=== PATIENT | male | born 1980 | race Caucasian/White ===

== ENCOUNTER 2018-07-28 20:52 | Inpatient (IN) | payer MEDICAID, SELFPAY ==
[2018-07-28 20:53] VITALS: BP 138/83; PULSE 121; RESP 24; TEMP 36.8; O2SAT 99; BMI 27.1
--- NOTE | 2018-07-28 21:05 | EKG12_ITS ---
Test Reason : CP Blood Pressure : / mmHG Vent. Rate : 109 BPM Atrial Rate : 109 BPM P-R Int : 158 ms QRS Dur : 092 ms QT Int : 322 ms P-R-T Axes : 060 033 036 degrees QTc Int : 433 ms Sinus tachycardia Otherwise normal ECG Confirmed by IKER OGDEN, SILVER ([id number]), image editor VERENA CONTRERAS ([id number]) on 07/30/2018 2:40:52 PM Referred By: ARLINE/JOSE Confirmed By:SILVER DONG MD
--- NOTE | 2018-07-28 21:05 | RAD_ITS ---
STUDY: X-RAY CHEST REASON FOR EXAM: Male, 38 years old. Chest pain/pressure TECHNIQUE: Single AP portable view of the chest. COMPARISON: 09/07/2013 FINDINGS: The lungs are clear and expanded. There is no demonstrated pleural abnormality. Normal size heart. Normal mediastinum and nicholas. Normal visualized pulmonary arteries. Normal visualized aortic arch and descending thoracic aorta. Normal visualized thoracic spine. Normal visualized ribs, clavicles, and shoulders. There is no demonstrated abnormality of the visualized soft tissue structures of the upper abdomen. RAD/Chest 1 View (Portable) IMPRESSION: Normal x-ray examination of the chest. Electronically Signed: Olegario Jimenez MD at 21:32 EDT , Service support ,
[2018-07-28] MEDS: 0.9% Normal Saline 1,000 ML 150 ML IV (21:16)
[2018-07-28] MEDS: Ondansetron 4 MG/2 ML Vial IV (21:17)
[2018-07-28] MEDS: Aspirin 81 MG TAB.CHEW 324 MG PO (21:17)
[2018-07-28] MEDS: HYDROmorphone 1 MG/ML Syringe IV (21:18)
[2018-07-28 21:22] VITALS: PULSE 107; RESP 20; O2SAT 98
[2018-07-28 21:24] LABS: Absolute Lymphocyte Count 3.83 X10^3/ul (0.83-4.51); Basophil# 0.05 X10^3/uL; Basophil% 0.6 % (0-1); Eosinophil# 0.08 X10^3/uL; Eosinophils% 0.9 % (0-5); Hematocrit 43.2 % (40-54); Hemoglobin 14.7 g/dl (13.0-16.5); Lymphocyte # 3.83 X10^3/ul (4.0); Mean Corpuscular Hgb 29.6 pg (27.0-32.0); Mean Corpuscular Volume 87.1 fL (80-94); Mean Platelet Vol. 9.9 fl (6.2-12.0); Monocyte# 0.91 X10^3/uL; Monocyte% 10.2 % (0-10); Neutrophil # 4.01 X10^3/uL (2.7-7.7); Neutrophil % 45.1 % (47-70); Platelet Count 218 K/mm3 (150-450); RBC Distribution Width SD 41.4 fl (35.1-43.9); Red Blood Count 4.96 M/mm3 (4.6-6.2); White Blood Count 8.9 K/mm3 (4.4-11.0)
[2018-07-28 21:25] LABS: POSITIVE COUNT NO; POSITIVE DIFFERENTIAL NO; POSITIVE MORPHOLOGY NO
[2018-07-28 21:26] LABS: D-Dimer Quantitative (DVT/PE) 1.02 FEU/ug/m (0.27-0.49)
--- NOTE | 2018-07-28 21:27 | ED.RN ---
DR NUNN AWARE OF D-DIMER 1.02.
--- NOTE | 2018-07-28 21:29 | CT_ITS ---
STUDY: CTA CHEST REASON FOR EXAM: Male, 38 years old. Left-sided chest pain radiating to the neck. Elevated d-dimer. RADIATION DOSAGE (If Supplied By Facility): CTDIvol = ( 16.8 ) mGy, DLP = ( 533.66 ) mGycm TECHNIQUE: The examination was performed with the intravenous administration of 100ML ml of Isovue 370 contrast material. Post-processing of the angiographic images was performed, with multiplanar reformation and 3D reconstruction. Individualized dose optimization techniques were used for this CT. COMPARISON: None. FINDINGS: The heart and pericardium are normal. The aorta is normal in caliber, with no aneurysm or dissection. There is no evidence of pulmonary embolus. Pulmonary arteries are unremarkable. There is mild mediastinal adenopathy and moderate bilateral hilar adenopathy. No calcified lymph nodes. There is no pleural effusion. Multiple bilateral pulmonary nodules measure up to 1.8 cm. No cavitation. These are concerning for possible malignancy/metastatic disease. Differential considerations include lymphoma; infection, including mycobacteria or fungal etiologies; septic emboli; hypersensitivity pneumonitis, Josep's disease; sarcoidosis. There is mild atelectasis in the lung bases. No interstitial disease is noted. Visualized abdomen is unremarkable. There is no osseous abnormality. CT/CTA Chest W/WO Contrast IMPRESSION: 1. Multiple bilateral pulmonary nodules with mediastinal and hilar adenopathy. Differential considerations are noted above. 2. No evidence of pulmonary embolus or aortic dissection. Dr. Mosher called findings to Dr. Ford at 10:33 PM. N.B. : The above information has been verbally conveyed by Marlin Mosher MD to Jessica Ford MD, on 07/28/2018 22:34:46 (ET). Electronically Signed: Marlin Mosher MD at 22:34 EDT Tel , Service support ,
[2018-07-28 21:34] LABS: Anion Gap 6 (5-15); BUN 9 mg/dL (7-18); BUN/Creat Ratio 9.9 RATIO (10-20); Calcium,Total 8.9 mg/dL (8.5-10.1); Chloride 104 mmol/L (98-107); Creatinine, Serum 0.91 mg/dL (0.70-1.30); EST Glomerular Filtration Rate 98 mL/min (>60); Est Glom Filt Rate - Afr Amer 119 mL/min (>60); Estimated Creatinine Clearance 131.55 ml/min; Glucose 97 mg/dL (74-106); Potassium 3.5 mmol/L (3.5-5.1); Sodium Level 140 mmol/L (136-145)
--- NOTE | 2018-07-28 23:01 | PCM.HP.STD ---
History of Present Illness Date of Admission: 07/28/18 Chief Complaint: Left-sided chest pain. The patient is a 38 y/o M w/ PMHx: Depression, Tobacco use, ? History of Treatment TB as Youth who presents to the [facility] ED on 07/28/18 with history of left sided pleuritic chest pain starting the day prior, mild initially, now ~ 20 minutes prior to presentation worsened, severe, worse with movement and with deep inspiration w/ radiation to the neck w/ ongoing chronic mild sputum productive unchanged from baseline, 30-40 lb weight loss over the last 6-12 months, night sweats over the last several days without any ongoing fever or chills. He per his mother was diagnosed w/ TB at age 6 including several family members following + family member and he was treated w/ 1 year of therapy. She notes following this he had no apparent issues but did not follow-up with any pulmonary or ID physician. In the ED work-up included T 98.3, heart rate 121-->107, BP 138/83, respiratory rate 24, 99% on room air, CBC with WBC 8.9, hemoglobin 14.7, platelet 218 without market left shift, d-dimer 1.02, BMP unremarkable, troponin less than 0.015, chest x-ray without acute process, CTPA with multiple bilateral pulmonary nodules with mediastinal and hilar adenopathy with no acute evidence of pulmonary embolus or aortic dissection, EKG with sinus tachycardia without acute evidence of ischemia. In the ED patient administered Zofran, Dilaudid, aspirin, normal saline. Past Medical History Allergies No Known Allergies Allergy (Verified 07/28/18 20:53) Home Medications: Ambulatory Orders Medication Instructions Recorded NK 07/28/18 Surgical History: - - Jaw surgery secondary to trauma, right upper extremity surgery, tonsillectomy. Psychiatric History: Depression Lives: Spouse/ Significant Other, With Family Smoking Status: Current every day smoker Tobacco Use: Cigarettes - Patient smokes proximally 1.5-2 pack/day cigarette tobacco usage. Alcohol: None Drugs: None - *Family History Maternal History Items: Diabetes, Hypertension Paternal History Items: Diabetes, Hypertension Review of Systems Constitutional: Reports: Night Sweats, Malaise, Weakness, Weight Change, Fatigue. Denies: Chills, Fever HEENT: Denies: Head Aches, Sinus Congestion, Sinus Drainage Cardiovascular: Reports: Chest Pain. Denies: Palpitations Respiratory: Reports: Cough, Pleuritic Pain, Sputum production. Denies: Shortness of Breath, Shortness of breath at rest, Shortness of breath upon exertion Gastrointestinal: Denies: Abdominal Pain, Nausea, Vomiting Genitourinary: Denies: Dysuria Musculoskeletal: Denies: Joint Pain, Joint Tenderness Skin: Denies: Rash, Wounds Neurological: Denies: Numbness, Tingling, Focal weakness Psychiatric: Reports: Depression. Denies: Anxiety, Homicidal Ideations, Suicidal Ideations Hematologic/ Lymphatic: Denies: Easy Bruising, Easy Bleeding VTE Information - Inpt Only VTE Present on Admission: No VTE Mechan Device Prophylaxis: SCD's VTE Pharm Prophylaxis ordered?: Yes Subjective: Seated upright in the ED bed, fatigued appearance, currently no acute left sided chest pain. Objective: Physical Examination: General: awake, alert, oriented x 3 and cooperative, seated upright in the ED bed in no apparent distress currently, chest pain currently improved after ED pain regimen. Skin: normal color, turgor, no icterus, cyanosis. HEENT: AT/NC, EOMI, PERRLA, mildly dry MM, no carotid bruits or JVD noted. Lungs: Diminished BS throughout, > BL bases, poor effort, hesitant to take deep breath secondary to L sided pleuritic chest pain, no reproducible discomfort w/ palpation L chest, no rales, ronchi or wheezing. Heart: Regular rate and rhythm; no gallop, rub audible. Abdomen: soft, NTTP, ND, normal BS, no HSM. Extremities: no cyanosis, clubbing, or edema. Neurological: patient awake, alert, oriented x 3; cognitive function intact; pupils equally reactive to light and accomodation; cranial nerves II-XII grossly normal, moving all 4 extremities, no focal deficits, strength moderately globally decreased secondary to acute presentation. Psychiatric: affect appears fatigued, anxious, no acute evidence of depressive feelings. - Physical Exam Vital Signs Temp Pulse Resp BP Pulse Ox 98.3 F 107 H 20 H 138/83 H 98 07/28/18 20:53 07/28/18 21:22 07/28/18 21:22 07/28/18 20:53 07/28/18 21:22 Oxygen Delivery Method Room Air Weight: 216 lb 11.43 oz Body Mass Index (BMI) 27.1 Laboratory Tests Past 24 Hrs 07/28/18 07/28/18 07/28/18 21:00 21:00 21:00 WBC 8.9 RBC 4.96 Hgb 14.7 Hct 43.2 MCV 87.1 MCH 29.6 MCHC 34.0 RDW 13.0 RDW Differential 41.4 Plt Count 218 MPV 9.9 Immature Gran % (Auto) 0.200 Neut % (Auto) 45.1 L Lymph % (Auto) 43.0 H Coll[place]worth % (Auto) 10.2 H Eos % (Auto) 0.9 Baso % (Auto) 0.6 Absolute Neuts (auto) 4.0 Absolute Lymphs (auto) 3.83 Total Counted Not Reportable D-Dimer Quant (PE/DVT) 1.02 H* Sodium 140 Potassium 3.5 Chloride 104 Carbon Dioxide 30.0 Anion Gap 6 BUN 9 Creatinine 0.91 Estim Creat Clear Calc 131.55 Est GFR (MDRD) Af Amer 119 Est GFR (MDRD) Non-Af 98 BUN/Creatinine Ratio 9.9 L Glucose 97 Calcium 8.9 Troponin I < 0.015 Assessment/Plan The patient is a 38 y/o M w/ PMHx: Depression, Tobacco use, ? History of Treatment TB as Youth who presents to the [facility] ED on 07/28/18 with history of left sided pleuritic chest pain starting the day prior, mild initially, now ~ 20 minutes prior to presentation worsened, severe, worse with movement and with deep inspiration w/ radiation to the neck w/ ongoing chronic mild sputum productive unchanged from baseline, 30-40 lb weight loss over the last 6-12 months, night sweats over the last several days without any ongoing fever or chills. (1) Pleuritic Chest Pain w/ Mediastinal adenopathy and moderate bilateral hilar adenopathy, Unclear Etiology, High Suspicion for TB given Prior History of TB: ED work-up included T 98.3, heart rate 121-->107, BP 138/83, respiratory rate 24, 99% on room air, CBC with WBC 8.9, hemoglobin 14.7, platelet 218 without market left shift, d-dimer 1.02, BMP unremarkable, troponin less than 0.015, chest x-ray without acute process, CTPA with multiple bilateral pulmonary nodules with mediastinal and hilar adenopathy with no acute evidence of pulmonary embolus or aortic dissection, EKG with sinus tachycardia without acute evidence of ischemia. Will admit to [facility], place on a monitored bed, maintain in isolation w/ ICU, will obtain sputum Cx x 3 including early AM sample for additionally AFB sputum smear, [place] evaluation and mycobacterial culture, place PPD, obtain quantiferon gold testing, obtain HIV testing, consult Pulmonary and ID, place on aerosols, PRN pain regimen, PRN antiemetic regimen. Given history of weight loss, night sweats and pulmonary findings, if noted work-up not remarkable may need to further pursue bronchoscopy/bx. (2) Tobacco Abuse: Encouraged cessation, inpatient consultation per RT, NR if desired. (3) Depression: Not on regimen, given current presentation and ramifications if + TB with very large family (6 children at home) will need to closely follow. (4) DVT Prophylaxis: SCDs, lovenox. Code Visit Inpatient E&M: 41076 Init Hosp L3
--- NOTE | 2018-07-28 23:25 | ED.VISSUMM ---
- ER Visit Summary Date of Service: 07/28/18 Chief Complaint: [Pain] History of Present Illness: The patient is a 38 M [presents to the emergency department with complaint of chest pain that started about 20 minutes ago. Patient states initially had some mild discomfort yesterday but then it seemed to resolve. 20 minutes ago he developed more severe discomfort radiating to his neck and left shoulder that is worse with deep breath and movement. Patient states the pain is sharp and stabbing and will take his breath away when he breathes. Patient denies any trauma. Patient is a smoker. He denies recent travel or surgery. He denies any hemoptysis. He has not been in intermediate or [facility]. Patient's mother states that he was treated for TB as a young child.] Patient states that he has a smoker's cough and typically coughs up some brownish phlegm in the morning. Physical Examination: [HEENT-PERRLA, EOMI. Cranial nerves II through XII grossly intact. TMs clear. Mucous membranes moist. No adenopathy. Cardiovascular-regular rate and rhythm without murmur or ectopy Lungs-clear to auscultation, chest wall stable without crepitus or subcu emphysema. Patient does have some tenderness palpation over the left anterior chest wall that seems to reproduce his pain. Abdomen-normoactive bowel sounds, soft, nontender, no rebound or rigidity, no peritoneal signs. Extremities-intact ?4, normal range of motion, normal pulses, atraumatic] Test Results: [EKG obtained on arrival showed a sinus rhythm with ventricular rate of 109 bpm with no acute ST segment changes. CBC with differential showed a white count of 8.9, hemoglobin 14.7, hematocrit 43, platelets 218. Chemistries were normal. Troponin was less than 0.015. D-dimer was 1.02. Chest x-ray was normal. CTA of the chest obtained was negative for PE or dissection however patient had multiple bilateral pulmonary nodules measuring up to 1.8 cm no cavitation noted these are concerning for possible malignancy/metastatic disease. Differential considerations include lymphoma, infection, including Mycobacterium or fungal etiologies. Septic emboli, hypersensitivity pneumonitis, Josep's disease, or sarcoidosis.] Emergency Department Course and Treatment: [Patient was medicated with Dilaudid and Zofran.] Treatment Plan: [Admit] Disposition: [Admit] Impression: [Chest pain-etiology uncertain Pulmonary nodules and adenopathy-etiology uncertain] This note was generated with Zoce[employer] dictation software. It may contain incorrect words, spelling, and punctuation that were not noted in review of the chart prior to signing ED Disposition - Plan for ED Patient: Chief Complaint: Chest Pain Referrals: Care Physician,No Primary [Primary Care Provider] -
--- NOTE | 2018-07-28 23:28 | ED.DCSUM_ITS ---
- ER Visit Summary Date of Service: 07/28/18 Chief Complaint: [Pain] History of Present Illness: The patient is a 38 M [presents to the emergency department with complaint of chest pain that started about 20 minutes ago. Patient states initially had some mild discomfort yesterday but then it seemed to resolve. 20 minutes ago he developed more severe discomfort radiating to his neck and left shoulder that is worse with deep breath and movement. Patient states the pain is sharp and stabbing and will take his breath away when he breathes. Patient denies any trauma. Patient is a smoker. He denies recent travel or surgery. He denies any hemoptysis. He has not been in residential or long term. Patient's mother states that he was treated for TB as a young child.] Patient states that he has a smoker's cough and typically coughs up some brownish phlegm in the morning. Physical Examination: [HEENT-PERRLA, EOMI. Cranial nerves II through XII grossly intact. TMs clear. Mucous membranes moist. No adenopathy. Cardiovascular-regular rate and rhythm without murmur or ectopy Lungs-clear to auscultation, chest wall stable without crepitus or subcu emphysema. Patient does have some tenderness palpation over the left anterior chest wall that seems to reproduce his pain. Abdomen-normoactive bowel sounds, soft, nontender, no rebound or rigidity, no peritoneal signs. Extremities-intact ?4, normal range of motion, normal pulses, atraumatic] Test Results: [EKG obtained on arrival showed a sinus rhythm with ventricular rate of 109 bpm with no acute ST segment changes. CBC with differential showed a white count of 8.9, hemoglobin 14.7, hematocrit 43, platelets 218. Chemistries were normal. Troponin was less than 0.015. D-dimer was 1.02. Chest x-ray was normal. CTA of the chest obtained was negative for PE or dissection however patient had multiple bilateral pulmonary nodules measuring up to 1.8 cm no cavitation noted these are concerning for possible malignancy/metastatic disease. Differential considerations include lymphoma, infection, including Mycobacterium or fungal etiologies. Septic emboli, hypersensitivity pneumonitis, Josep's disease, or sarcoidosis.] Emergency Department Course and Treatment: [Patient was medicated with Dilaudid and Zofran.] Treatment Plan: [Admit] Disposition: [Admit] Impression: [Chest pain-etiology uncertain Pulmonary nodules and adenopathy-etiology uncertain] This note was generated with HomeTouch dictation software. It may contain incorrect words, spelling, and punctuation that were not noted in review of the chart prior to signing ED Disposition - Plan for ED Patient: Chief Complaint: Chest Pain Referrals: Care Physician,No Primary [Primary Care Provider] -
[2018-07-29] VITALS (16 sets, daily range): BP systolic 116–132; BP diastolic 62–85; PULSE 72–114; RESP 16–23; TEMP 36.7–36.9; O2SAT 94–98; BMI 23.5
--- NOTE | 2018-07-29 | SPU_PTH ---
PATIENT: GUERRERO BAI LOC: ICU U#:[id number] AGE/SX: 38/M ROOM: [place] [address] RE07/28/[address]: Dr. Eliud Larios MD : 1980 BED: 1 DIS: 07/30/2018 SPEC #: [id number] RECD: 07/29/18 11:08 STATUS: ZAKI REAkash #: [id number] SABRINA: 07/29/18 00:[address]: Eliud Larios DEPT: CYTOLOGY RECD BY: Elkin Figueredo ENTERED: 07/29/18 11:10 SP TYPE: Sputum Cy OTHR DR: MD Dr. Scott Moreno MD Dr. Robert Leininger, MD No Primary Care Phys Tissues: Sputum Procedures: Pap Stain (control) Special Stain Group II Special Stain Group I AFB Stain (control) Cytospin Fluid HEADER OPERATION: Not noted PRE-OP DIAGNOSIS: Chest pain, abnormal CT TISSUE SUBMITTED: Sputum #2 for cytology DIAGNOSIS CYTOLOGY Sputum #2 for cytology (cytospin): Negative for malignant cells. Special stain for acid fast bacilli is negative for organisms; matched control is appropriate. SJ:rg 07/30/18 COMMENT This case is discussed with Dr. Rafa Herrera on 07/30/18. CYTOLOGY STUDY Slides are reviewed. The specimen consists of squamous cells, histiocytes and numerous neutrophils. CYTOLOGY GROSS Received is <1 ml of thick, cloudy mucoid fluid labeled with the patient's name and and designated per the requisition as sputum. Submitted for cytology preparation. / 07/29/18 TC:2 CPT: 63744, 38968
[2018-07-29 00:43] LABS: Vista UDS pH Range 6
[2018-07-29 00:56] LABS: Amphetamine Urine VISTA NEGATIVE (<1000 ng/mL); Barbiturate Urine VISTA NEGATIVE (< 200 ng/mL); Benzodiazepine Urine VISTA NEGATIVE (< 200 ng/mL); Cocaine Urine VISTA NEGATIVE (< 300 ng/mL); Ecstacy Urine VISTA NEGATIVE (< 500 ng/mL); Methadone Urine VISTA NEGATIVE (< 300 ng/mL); PCP Urine VISTA NEGATIVE (< 25 ng/mL); THC Urine VISTA POSITIVE (< 50 ng/mL)
[2018-07-29 01:15] LABS: Magnesium 2.1 mg/dL (1.6-2.6)
[2018-07-29] MEDS: Ipratropium/Albuterol Sulfate 3 ML AMPUL.NEB INHALATION ×5 (01:18→18:41)
[2018-07-29] MEDS: 0.9% Normal Saline 1,000 ML 125 ML IV ×2 (01:23→09:29)
[2018-07-29] MEDS: 0.9% NaCl Peripheral Flush Adult/Peds IV ×2 (01:24→19:25)
[2018-07-29] MEDS: Temazepam 15 MG Capsule PO (01:24)
[2018-07-29] MEDS: Ondansetron 4 MG/2 ML Vial IV ×2 (01:24→13:12)
[2018-07-29] MEDS: Morphine 2 MG/ML Syringe IV ×3 (01:24→19:24)
--- NOTE | 2018-07-29 01:30 | SPU_PTH ---
PATIENT: GUERRERO BAI LOC: ICU U#:[id number] AGE/SX: 38/M ROOM: [place] [address] RE07/28/[address]: Dr. Eliud Larios MD : 1980 BED: 1 DIS: 07/30/2018 SPEC #: [id number] RECD: 07/29/18 08:23 STATUS: ZAKI REQ #: [id number] SABRINA: 07/29/18 01:[address]: Eliud Larios DEPT: CYTOLOGY RECD BY: Elkin Figueredo ENTERED: 07/29/18 08:24 SP TYPE: Sputum Cy OTHR DR: MD Dr. Scott Moreno MD Dr. Robert Leininger, MD No Primary Care Phys Tissues: Sputum Procedures: Pap Stain (control) Special Stain Group II Special Stain Group I AFB Stain (control) Cytospin Fluid HEADER OPERATION: Not noted PRE-OP DIAGNOSIS: Chest pain, abnormal CT TISSUE SUBMITTED: Sputum #1 for cytology at 0130 DIAGNOSIS CYTOLOGY Sputum #1 for cytology (cytospin and smears): Negative for malignant cells. A few fungal organisms (yeast) consistent with waylon species are noted. Special stain for acid fast bacilli is negative for organisms; matched control is appropriate. SJ:rg 07/30/18 COMMENT This case is discussed with Dr. Rafa Herrera on 07/30/18. CYTOLOGY STUDY Slides are reviewed. The specimen consists of squamous cells, squamous metaplastic cells, inflammatory cells, organism consistent with bacteria and a few histiocytes. CYTOLOGY GROSS Received is >1 ml of thick, cloudy mucoid fluid labeled with the patient's name and and designated per the requisition as sputum. Submitted for cytology preparation. / 07/29/18 TC:2 CPT: 69363, 20793
[2018-07-29 01:53] LABS: Acid Fast Stain SEE PATHOLOGY REPORT; Cytology, Body Fluid / CSF SEE PATHOLOGY REPORT
[2018-07-29] MEDS: Tuberculin,Purif.prot.deriv. 50 TU/ML Vial 5 ML ID (02:15)
[2018-07-29 05:09] LABS: M R Staph aureus DNA By PCR Negative (Negative); Probe Check PASS; Specimen Processing Control PASS
[2018-07-29] MEDS: HYDROcodone Bitartrate/Apap 5/325 Tablet PO (07:52)
--- NOTE | 2018-07-29 09:01 | PCM.PN.HOSP ---
Subjective: The patient was admitted last night for suspicion of TB. On further history, patient was treated for antituberculosis medication for about 1 year at age of 6 as he was exposed to his uncle who had TB. Patient states he lost 35-40 pounds in last 6 months, he has other chronic symptoms including feeling of weakness, loss of appetite, chronic cough and night sweats. He had a 1 sputum culture pending for AFB Vitals/I&O's: Vital Signs Temp Pulse Resp BP Pulse Ox 98.4 F 86 23 H 116/70 95 07/29/18 07:57 07/29/18 07:57 07/29/18 07:57 07/29/18 07:57 07/29/18 07:57 Oxygen Delivery Method Room Air Weight: 188 lb 0.869 oz Body Mass Index (BMI) 23.5 Intake and Output for Last 24 Hours 07/27/18 07/28/18 07/29/18 23:59 23:59 23:59 Intake Total 1131 / 1131 Output Total 900 / 900 Balance 231 / 231 General: Alert, Oriented x3, Cooperative, - - thin built HEENT: Atraumatic, PERRLA, EOMI, Normocephalic Neck: Supple, No JVD, Negative Carotid Bruits Lungs: Clear to auscultation, No rhonchi, No wheeze, No rales, Diminished Cardiovascular: Regular rate, Normal S1, Normal S2, No murmurs Abdomen: Bowel Sounds Present, Soft, Non Tender Extremities: No edema, Capillary Refill Less than 3 Seconds Skin: No rashes, No breakdown Musculoskeletal: No Tenderness to Palpation of Joints or Extremities Neurological: Cranial nerves II-XII grossly intact Psych/Mental Status: Normal Affect, Appropriate Microbiology Past 72 Hours 07/29/18 01:30 Sputum, Expectorated/Coughed Gram Stain - Preliminary 07/29/18 00:30 Urine, Clean Catch Streptococcus pneumoniae Antigen (M - Final 07/29/18 00:30 Urine, Clean Catch Legionella Antigen - Final Laboratory Results 07/28/18 00:30: Urine Opiates Screen POSITIVE H, Urine Methadone Screen NEGATIVE, Ur Barbiturates Screen NEGATIVE, Ur Phencyclidine Scrn NEGATIVE, Ur Amphetamines Screen NEGATIVE, U Methamphetamin-MDMA NEGATIVE, U Benzodiazepines Scrn NEGATIVE, Urine Cocaine Screen NEGATIVE, U Cannabinoids Screen POSITIVE H, Ur Drug Screen Comment 07/28/18 21:00: WBC 8.9, RBC 4.96, Hgb 14.7, Hct 43.2, MCV 87.1, MCH 29.6, MCHC 34.0, RDW 13.0, RDW Differential 41.4, Plt Count 218, MPV 9.9, Immature Gran % (Auto) 0.200, Neut % (Auto) 45.1 L, Lymph % (Auto) 43.0 H, [place] % (Auto) 10.2 H, Eos % (Auto) 0.9, Baso % (Auto) 0.6, Absolute Neuts (auto) 4.0, Absolute Lymphs (auto) 3.83, Total Counted Not Reportable 07/28/18 21:00: D-Dimer Quant (PE/DVT) 1.02 H* 07/28/18 21:00: Sodium 140, Potassium 3.5, Chloride 104, Carbon Dioxide 30.0, Anion Gap 6, BUN 9, Creatinine 0.91, Estim Creat Clear Calc 131.55, Est GFR (MDRD) Af Amer 119, Est GFR (MDRD) Non-Af 98, BUN/Creatinine Ratio 9.9 L, Glucose 97, Calcium 8.9, Troponin I < 0.015 07/28/18 21:00: Magnesium 2.1 07/29/18 01:30: TB Test (QFT) Nil Pending, TB Test (QFT) Mitogen Pending, TB Test (QFT) Antigen Pending, TB Test Antigen - Nil Pending, TB Test (QFT) Pending, TB Positive Criteria Pending, TB Test (QFT) Interp Pending 07/29/18 01:30: Acid Fast Stain Pending, Miscellaneous Cytology Pending 07/29/18 01:30: Miscellaneous Test Pending 07/29/18 01:30: HIV 1&2 Antibody Pending 07/29/18 01:30: MRSA (PCR) Negative Current Medications Hydrocodone Bitart/Acetaminophen ([place] 5mg-325mg) 1 - 2 tablet PO Q6H PRN PRN PRN Reason: Moderate-severe pain Last Admin: 07/29/18 07:52 Dose: 1 tablet Al Hydroxide/Mg Hydroxide (Mylanta Ii) 30 ml PO Q6H PRN PRN PRN Reason: Gastric burning Albuterol Sulfate (Ventolin Aerosols) 2.5 mg INHALATION Q2H PRN PRN PRN Reason: dyspnea, wheezing Albuterol/Ipratropium (Duoneb) 3 ml INHALATION Q4HWA.RT [facility] Last Admin: 07/29/18 06:45 Dose: 3 ml Enoxaparin Sodium (Lovenox) 40 mg SC DAILY@1000 [facility] Famotidine (Pepcid) 20 mg PO BID [facility] Sodium Chloride () 1,000 mls @ 125 mls/hr IV .Q8H [facility] Last Admin: 07/29/18 01:23 Dose: 125 mls/hr Sodium Chloride () 250 mls @ 15 mls/hr IV .[id number] PRN PRN Reason: SALINE FLUSH Magnesium Hydroxide (Milk Of Magnesia) 30 ml PO DAILY PRN PRN Reason: Constipation Morphine Sulfate () 1 - 2 mg IV Q4H PRN PRN PRN Reason: PAIN Last Admin: 07/29/18 01:24 Dose: 2 mg Nicotine (Nicoderm Cq (Pbkc)) 21 mg TRANSDERM. DAILY [facility] Last Admin: 07/29/18 01:24 Dose: 21 mg Nutritional Formula (Lactose Free) (Ensure Enlive) 120 ml PO 4X/DAY [facility] Ondansetron HCl (Zofran) 4 mg IV Q8H PRN PRN PRN Reason: NAUSEA Last Admin: 07/29/18 01:24 Dose: 4 mg Promethazine HCl (Phenergan) 12.5 mg IV Q6H PRN PRN PRN Reason: NAUSEA/VOMITING Sodium Chloride () 5 - 30 ml IV UD PRN PRN Reason: SALINE FLUSH Last Admin: 07/29/18 01:24 Dose: 20 ml Sodium Chloride (Sodium Chloride 3%) 3 ml INHALATION Q8H.RT [facility] Stop: 07/31/18 08:16 Temazepam (Restoril) 15 mg PO QHS PRN PRN PRN Reason: insomnia Last Admin: 07/29/18 01:24 Dose: 15 mg Medical Necessity - Tobacco Use Smoking Status: Current every day smoker Tobacco Use: Cigarettes Assessment/Plan The patient is a 38 y/o M with history of tobacco use, possible history of of TB at 6 years of his age with treatment for 1 year who presents to the [facility] ED on 07/28/18 with history of left sided pleuritic chest pain starting the day prior, chronic mild sputum productive unchanged from baseline, 30-40 lb weight loss over the last 6 months, night sweats over the last several days without any ongoing fever or chills. 1. Suspicion for pulmonary tuberculosis: Patient is being admitted in airborne isolation. On protocol for rule out TB with 3 sputum culture for AFB. Urinary antigens are negative. Respiratory panel negative. Gram stain sputum culture pending. Chest CT done in ED shows multiple bilateral pulmonary nodules with mediastinal and hilar adenopathy. Petrology Teacher and ID has been consulted. PPD, QuantiFERON gold test, HIV test has been ordered. On pain control for pleuritic chest pain. Bronchodilator as needed. 2. Chronic tobacco use: Smoking cessation advised. On nicotine. 3. Depression: 4. DVT prophylaxis: On Lovenox. Clinical Impression(s) from Imaging Studies Chest X-Ray 07/28/18 21:05 IMPRESSION: Normal x-ray examination of the chest. Electronically Signed: Olegario Jimenez MD at 21:32 EDT , Service support , Chest CTA 07/28/18 21:29 IMPRESSION: 1. Multiple bilateral pulmonary nodules with mediastinal and hilar adenopathy. Differential considerations are noted above. 2. No evidence of pulmonary embolus or aortic dissection. Active Medications Hydrocodone Bitart/Acetaminophen ([place] 5mg-325mg) 1 - 2 tablet PO Q6H PRN PRN PRN Reason: Moderate-severe pain Last Admin: 07/29/18 07:52 Dose: 1 tablet Al Hydroxide/Mg Hydroxide (Mylanta Ii) 30 ml PO Q6H PRN PRN PRN Reason: Gastric burning Albuterol Sulfate (Ventolin Aerosols) 2.5 mg INHALATION Q2H PRN PRN PRN Reason: dyspnea, wheezing Albuterol/Ipratropium (Duoneb) 3 ml INHALATION Q4HWA.RT [facility] Last Admin: 07/29/18 06:45 Dose: 3 ml Enoxaparin Sodium (Lovenox) 40 mg SC DAILY@1000 [facility] Famotidine (Pepcid) 20 mg PO BID [facility] Sodium Chloride () 1,000 mls @ 125 mls/hr IV .Q8H [facility] Last Admin: 07/29/18 01:23 Dose: 125 mls/hr Sodium Chloride () 250 mls @ 15 mls/hr IV .[id number] PRN PRN Reason: SALINE FLUSH Magnesium Hydroxide (Milk Of Magnesia) 30 ml PO DAILY PRN PRN Reason: Constipation Morphine Sulfate () 1 - 2 mg IV Q4H PRN PRN PRN Reason: PAIN Last Admin: 07/29/18 01:24 Dose: 2 mg Nicotine (Nicoderm Cq (Pbkc)) 21 mg TRANSDERM. DAILY [facility] Last Admin: 07/29/18 01:24 Dose: 21 mg Nutritional Formula (Lactose Free) (Ensure Enlive) 120 ml PO 4X/DAY [facility] Ondansetron HCl (Zofran) 4 mg IV Q8H PRN PRN PRN Reason: NAUSEA Last Admin: 07/29/18 01:24 Dose: 4 mg Promethazine HCl (Phenergan) 12.5 mg IV Q6H PRN PRN PRN Reason: NAUSEA/VOMITING Sodium Chloride () 5 - 30 ml IV UD PRN PRN Reason: SALINE FLUSH Last Admin: 07/29/18 01:24 Dose: 20 ml Sodium Chloride (Sodium Chloride 3%) 3 ml INHALATION Q8H.RT [facility] Stop: 07/31/18 08:16 Temazepam (Restoril) 15 mg PO QHS PRN PRN PRN Reason: insomnia Last Admin: 07/29/18 01:24 Dose: 15 mg Code Visit Inpatient E&M: [id number] [facility]
--- NOTE | 2018-07-29 09:05 | PN_ITS ---
Subjective: The patient was admitted last night for suspicion of TB. On further history, patient was treated for antituberculosis medication for about 1 year at age of 6 as he was exposed to his uncle who had TB. Patient states he lost 35-40 pounds in last 6 months, he has other chronic symptoms including feeling of weakness, loss of appetite, chronic cough and night sweats. He had a 1 sputum culture pending for AFB Vitals/I&O's: Vital Signs Temp Pulse Resp BP Pulse Ox 98.4 F 86 23 H 116/70 95 07/29/18 07:57 07/29/18 07:57 07/29/18 07:57 07/29/18 07:57 07/29/18 07:57 Oxygen Delivery Method Room Air Weight: 188 lb 0.869 oz Body Mass Index (BMI) 23.5 Intake and Output for Last 24 Hours 07/27/18 07/28/18 07/29/18 23:59 23:59 23:59 Intake Total 1131 / 1131 Output Total 900 / 900 Balance 231 / 231 General: Alert, Oriented x3, Cooperative, - - thin built HEENT: Atraumatic, PERRLA, EOMI, Normocephalic Neck: Supple, No JVD, Negative Carotid Bruits Lungs: Clear to auscultation, No rhonchi, No wheeze, No rales, Diminished Cardiovascular: Regular rate, Normal S1, Normal S2, No murmurs Abdomen: Bowel Sounds Present, Soft, Non Tender Extremities: No edema, Capillary Refill Less than 3 Seconds Skin: No rashes, No breakdown Musculoskeletal: No Tenderness to Palpation of Joints or Extremities Neurological: Cranial nerves II-XII grossly intact Psych/Mental Status: Normal Affect, Appropriate Microbiology Past 72 Hours 07/29/18 01:30 Sputum, Expectorated/Coughed Gram Stain - Preliminary 07/29/18 00:30 Urine, Clean Catch Streptococcus pneumoniae Antigen (M - Final 07/29/18 00:30 Urine, Clean Catch Legionella Antigen - Final Laboratory Results 07/28/18 00:30: Urine Opiates Screen POSITIVE H, Urine Methadone Screen NEGATIVE, Ur Barbiturates Screen NEGATIVE, Ur Phencyclidine Scrn NEGATIVE, Ur Amphetamines Screen NEGATIVE, U Methamphetamin-MDMA NEGATIVE, U Benzodiazepines Scrn NEGATIVE, Urine Cocaine Screen NEGATIVE, U Cannabinoids Screen POSITIVE H, Ur Drug Screen Comment 07/28/18 21:00: WBC 8.9, RBC 4.96, Hgb 14.7, Hct 43.2, MCV 87.1, MCH 29.6, MCHC 34.0, RDW 13.0, RDW Differential 41.4, Plt Count 218, MPV 9.9, Immature Gran % (Auto) 0.200, Neut % (Auto) 45.1 L, Lymph % (Auto) 43.0 H, [place] % (Auto) 10.2 H, Eos % (Auto) 0.9, Baso % (Auto) 0.6, Absolute Neuts (auto) 4.0, Absolute Lymphs (auto) 3.83, Total Counted Not Reportable 07/28/18 21:00: D-Dimer Quant (PE/DVT) 1.02 H* 07/28/18 21:00: Sodium 140, Potassium 3.5, Chloride 104, Carbon Dioxide 30.0, Anion Gap 6, BUN 9, Creatinine 0.91, Estim Creat Clear Calc 131.55, Est GFR (MDRD) Af Amer 119, Est GFR (MDRD) Non-Af 98, BUN/Creatinine Ratio 9.9 L, Glucose 97, Calcium 8.9, Troponin I < 0.015 07/28/18 21:00: Magnesium 2.1 07/29/18 01:30: TB Test (QFT) Nil Pending, TB Test (QFT) Mitogen Pending, TB Test (QFT) Antigen Pending, TB Test Antigen - Nil Pending, TB Test (QFT) Pending, TB Positive Criteria Pending, TB Test (QFT) Interp Pending 07/29/18 01:30: Acid Fast Stain Pending, Miscellaneous Cytology Pending 07/29/18 01:30: Miscellaneous Test Pending 07/29/18 01:30: HIV 1&2 Antibody Pending 07/29/18 01:30: MRSA (PCR) Negative Current Medications Hydrocodone Bitart/Acetaminophen ([place] 5mg-325mg) 1 - 2 tablet PO Q6H PRN PRN PRN Reason: Moderate-severe pain Last Admin: 07/29/18 07:52 Dose: 1 tablet Al Hydroxide/Mg Hydroxide (Mylanta Ii) 30 ml PO Q6H PRN PRN PRN Reason: Gastric burning Albuterol Sulfate (Ventolin Aerosols) 2.5 mg INHALATION Q2H PRN PRN PRN Reason: dyspnea, wheezing Albuterol/Ipratropium (Duoneb) 3 ml INHALATION Q4HWA.RT [facility] Last Admin: 07/29/18 06:45 Dose: 3 ml Enoxaparin Sodium (Lovenox) 40 mg SC DAILY@1000 E[facility] Famotidine (Pepcid) 20 mg PO BID [facility] Sodium Chloride () 1,000 mls @ 125 mls/hr IV .Q8H ESTRADA Last Admin: 07/29/18 01:23 Dose: 125 mls/hr Sodium Chloride () 250 mls @ 15 mls/hr IV .[id number] PRN PRN Reason: SALINE FLUSH Magnesium Hydroxide (Milk Of Magnesia) 30 ml PO DAILY PRN PRN Reason: Constipation Morphine Sulfate () 1 - 2 mg IV Q4H PRN PRN PRN Reason: PAIN Last Admin: 07/29/18 01:24 Dose: 2 mg Nicotine (Nicoderm Cq (Pbkc)) 21 mg TRANSDERM. DAILY [facility] Last Admin: 07/29/18 01:24 Dose: 21 mg Nutritional Formula (Lactose Free) (Ensure Enlive) 120 ml PO 4X/DAY [facility] Ondansetron HCl (Zofran) 4 mg IV Q8H PRN PRN PRN Reason: NAUSEA Last Admin: 07/29/18 01:24 Dose: 4 mg Promethazine HCl (Phenergan) 12.5 mg IV Q6H PRN PRN PRN Reason: NAUSEA/VOMITING Sodium Chloride () 5 - 30 ml IV UD PRN PRN Reason: SALINE FLUSH Last Admin: 07/29/18 01:24 Dose: 20 ml Sodium Chloride (Sodium Chloride 3%) 3 ml INHALATION Q8H.RT [facility] Stop: 07/31/18 08:16 Temazepam (Restoril) 15 mg PO QHS PRN PRN PRN Reason: insomnia Last Admin: 07/29/18 01:24 Dose: 15 mg Medical Necessity - Tobacco Use Smoking Status: Current every day smoker Tobacco Use: Cigarettes Assessment/Plan The patient is a 38 y/o M with history of tobacco use, possible history of of TB at 6 years of his age with treatment for 1 year who presents to the [facility] ED on 07/28/18 with history of left sided pleuritic chest pain starting the day prior, chronic mild sputum productive unchanged from baseline, 30-40 lb weight loss over the last 6 months, night sweats over the last several days without any ongoing fever or chills. 1. Suspicion for pulmonary tuberculosis: Patient is being admitted in airborne isolation. On protocol for rule out TB with 3 sputum culture for AFB. Urinary antigens are negative. Respiratory panel negative. Gram stain sputum culture pending. Chest CT done in ED shows multiple bilateral pulmonary nodules with mediastinal and hilar adenopathy. Sole Ruffer and ID has been consulted. PPD, QuantiFERON gold test, HIV test has been ordered. On pain control for pleuritic chest pain. Bronchodilator as needed. 2. Chronic tobacco use: Smoking cessation advised. On nicotine. 3. Depression: 4. DVT prophylaxis: On Lovenox. Clinical Impression(s) from Imaging Studies Chest X-Ray 07/28/18 21:05 IMPRESSION: Normal x-ray examination of the chest. Electronically Signed: Olegario Jimenez MD at 21:32 EDT , Service support , Chest CTA 07/28/18 21:29 IMPRESSION: 1. Multiple bilateral pulmonary nodules with mediastinal and hilar adenopathy. Differential considerations are noted above. 2. No evidence of pulmonary embolus or aortic dissection. Active Medications Hydrocodone Bitart/Acetaminophen ([place] 5mg-325mg) 1 - 2 tablet PO Q6H PRN PRN PRN Reason: Moderate-severe pain Last Admin: 07/29/18 07:52 Dose: 1 tablet Al Hydroxide/Mg Hydroxide (Mylanta Ii) 30 ml PO Q6H PRN PRN PRN Reason: Gastric burning Albuterol Sulfate (Ventolin Aerosols) 2.5 mg INHALATION Q2H PRN PRN PRN Reason: dyspnea, wheezing Albuterol/Ipratropium (Duoneb) 3 ml INHALATION Q4HWA.RT [facility] Last Admin: 07/29/18 06:45 Dose: 3 ml Enoxaparin Sodium (Lovenox) 40 mg SC DAILY@1000 [facility] Famotidine (Pepcid) 20 mg PO BID [facility] Sodium Chloride () 1,000 mls @ 125 mls/hr IV .Q8H [facility] Last Admin: 07/29/18 01:23 Dose: 125 mls/hr Sodium Chloride () 250 mls @ 15 mls/hr IV .[id number] PRN PRN Reason: SALINE FLUSH Magnesium Hydroxide (Milk Of Magnesia) 30 ml PO DAILY PRN PRN Reason: Constipation Morphine Sulfate () 1 - 2 mg IV Q4H PRN PRN PRN Reason: PAIN Last Admin: 07/29/18 01:24 Dose: 2 mg Nicotine (Nicoderm Cq (Pbkc)) 21 mg TRANSDERM. DAILY [facility] Last Admin: 07/29/18 01:24 Dose: 21 mg Nutritional Formula (Lactose Free) (Ensure Enlive) 120 ml PO 4X/DAY [facility] Ondansetron HCl (Zofran) 4 mg IV Q8H PRN PRN PRN Reason: NAUSEA Last Admin: 07/29/18 01:24 Dose: 4 mg Promethazine HCl (Phenergan) 12.5 mg IV Q6H PRN PRN PRN Reason: NAUSEA/VOMITING Sodium Chloride () 5 - 30 ml IV UD PRN PRN Reason: SALINE FLUSH Last Admin: 07/29/18 01:24 Dose: 20 ml Sodium Chloride (Sodium Chloride 3%) 3 ml INHALATION Q8H.RT [facility] Stop: 07/31/18 08:16 Temazepam (Restoril) 15 mg PO QHS PRN PRN PRN Reason: insomnia Last Admin: 07/29/18 01:24 Dose: 15 mg Code Visit Inpatient E&M: [id number] [facility]
[2018-07-29] MEDS: Enoxaparin 40 MG/0.4 ML Syringe SC (09:26)
[2018-07-29] MEDS: Famotidine 20 MG Tablet PO ×2 (09:27→21:50)
[2018-07-29 09:45] LABS: Acid Fast Stain SEE PATHOLOGY REPORT; Cytology, Body Fluid / CSF SEE PATHOLOGY REPORT
[2018-07-29 09:53] LABS: HIV - WCH Non-Reactive (Nonreactive)
--- NOTE | 2018-07-29 10:48 | PCM.CONS.GEN ---
Reason for Consult Date of Consultation: 07/29/18 Reason for Consultation: Abnormal CT History of Present Illness: The patient is a 38 year old M with no significant past medical history, who presented to [facility] on 07/28/2018 secondary to left-sided chest pain. Patient reported a pleuritic type chest pain that worsened over the last 24-48 hours. Patient reported that initially it was mild, but had progressed to the point to where he was panting. Patient states the discomfort did radiate to his neck and left shoulder. Patient denied any trauma, recent travel or surgery. No hemoptysis have been reported. Patient did report that he was treated for tuberculosis exposure around the age of 7. Patient does have a long smoking history and states he typically coughs up brownish type phlegm in the morning. Patient has never had any previous similar type of chest pain. Patient was admitted to the floor and placed on TB precautions. A CT scan of the chest was obtained showing hilar lymphadenopathy with sporadic nodules in the lungs. Patient's laboratory workup was relatively unremarkable. Patient did have a normal WBC count. Patient reports a 20-30 pound weight loss over the last 3 months. Patient states that he initially started to cut out sweets secondary to some exertional dyspnea and lost approximately 10 pounds. However, patient is reinitiated his normal diet and has continued to lose weight. Patient does report some chills overnight, but denies any obvious sweats. Patient denies any fevers. Patient denies any other pain. No diarrhea has been reported. Patient denies any recent exposures. Patient does have a history of marijuana use, but avidly denies any IV drug use. 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 She denies incarceration. Patient states that he was treated at approximately 7 years old by the health department for TB exposure from his uncle. Patient denies any recent immunosuppressive therapy. She did receive Dilaudid in the ER secondary to chest pain. Past Medical History Allergies No Known Allergies Allergy (Verified 07/28/18 20:53) Home Medications: Ambulatory Orders Medication Instructions Recorded NK 07/28/18 Surgical History: - - Jaw surgery secondary to trauma, right upper extremity surgery, tonsillectomy. Psychiatric History: Depression Lives: Spouse/ Significant Other, With Family Smoking Status: Current every day smoker Tobacco Use: Cigarettes Alcohol: None Drugs: None - *Family History Maternal History Items: Diabetes, Hypertension Paternal History Items: Diabetes, Hypertension Review of Systems Comment: See HPI, otherwise negative x10 systems. Objective: CT scan of the chest was personally reviewed. Nodules and hilar lymphadenopathy were appreciated. These were pointed out to patient and his mother. - Physical Exam General: Alert, Oriented x3, Cooperative, No apparent distress, Well developed, Well nourished, - - Speaks in full sentences. HEENT: Atraumatic, PERRLA, EOMI, Normocephalic, - - No scleral icterus or injection noted. Oral: Moist Mucosa, No Gingival or Mucosal Lesions/ Ulcerations Neck: Supple, No JVD, No Nodes, Trachea Midline Lungs: Clear to auscultation, Normal air movement, No rhonchi, No wheeze, No rales, - - Symmetric expansion, no dullness to percussion Cardiovascular: Regular rate, Regular Rhythm, Normal S1, Normal S2, No murmurs, No rub noted, No Gallop Abdomen: Bowel Sounds Present, Soft, Non Tender, Non-Distended Extremities: No clubbing, No cyanosis, No edema, Capillary Refill Less than 3 Seconds Skin: No rashes, No breakdown Musculoskeletal: No Tenderness to Palpation of Joints or Extremities, No Muscle Wasting Lymphatic: No Cervical, Supraclavicular, or Inguinal Adenopathy Neurological: Cranial nerves II-XII grossly intact, Neuro grossly intact, Motor Exam 5/5 strength throughout Psych/Mental Status: Alert and oriented to time, place, person, mood and affect Vital Signs Temp Pulse Resp BP Pulse Ox 36.9 C 86 23 H 116/70 95 07/29/18 07:57 07/29/18 07:57 07/29/18 07:57 07/29/18 07:57 07/29/18 07:57 Oxygen Delivery Method Room Air Weight: 85.3 kg Body Mass Index (BMI) 23.5 Intake and Output for Last 24 Hours 07/27/18 07/28/18 07/29/18 23:59 23:59 23:59 Intake Total 1131 / 1131 Output Total 900 / 900 Balance 231 / 231 Microbiology Past 72 Hours 07/29/18 01:25 Respiratory Panel (PCR) - Final Mucosa - Nasopharyngeal 07/29/18 01:30 Gram Stain - Preliminary Sputum, Expectorated/Coughed 07/29/18 00:30 Streptococcus pneumoniae Antigen (M - Final Urine, Clean Catch 07/29/18 00:30 Legionella Antigen - Final Urine, Clean Catch Laboratory Tests Past 24 Hrs 07/28/18 07/28/18 07/28/18 00:30 21:00 21:00 WBC 8.9 RBC 4.96 Hgb 14.7 Hct 43.2 MCV 87.1 MCH 29.6 MCHC 34.0 RDW 13.0 RDW Differential 41.4 Plt Count 218 MPV 9.9 Immature Gran % (Auto) 0.200 Neut % (Auto) 45.1 L Lymph % (Auto) 43.0 H [place] % (Auto) 10.2 H Eos % (Auto) 0.9 Baso % (Auto) 0.6 Absolute Neuts (auto) 4.0 Absolute Lymphs (auto) 3.83 Total Counted Not Reportable D-Dimer Quant (PE/DVT) 1.02 H* Sodium Potassium Chloride Carbon Dioxide Anion Gap BUN Creatinine Estim Creat Clear Calc Est GFR (MDRD) Af Amer Est GFR (MDRD) Non-Af BUN/Creatinine Ratio Glucose Calcium Magnesium Troponin I Urine Opiates Screen POSITIVE H Urine Methadone Screen NEGATIVE Ur Barbiturates Screen NEGATIVE Ur Phencyclidine Scrn NEGATIVE Ur Amphetamines Screen NEGATIVE U Methamphetamin-MDMA NEGATIVE U Benzodiazepines Scrn NEGATIVE Urine Cocaine Screen NEGATIVE U Cannabinoids Screen POSITIVE H Ur Drug Screen Comment Acid Fast Stain HIV 1&2 Antibody MRSA (PCR) TB Test (QFT) Nil TB Test (QFT) Mitogen TB Test (QFT) Antigen TB Test Antigen - Nil TB Test (QFT) TB Positive Criteria TB Test (QFT) Interp Miscellaneous Cytology Miscellaneous Test 07/28/18 07/28/18 07/29/18 21:00 21:00 01:30 WBC RBC Hgb Hct MCV MCH MCHC RDW RDW Differential Plt Count MPV Immature Gran % (Auto) Neut % (Auto) Lymph % (Auto) [place] % (Auto) Eos % (Auto) Baso % (Auto) Absolute Neuts (auto) Absolute Lymphs (auto) Total Counted D-Dimer Quant (PE/DVT) Sodium 140 Potassium 3.5 Chloride 104 Carbon Dioxide 30.0 Anion Gap 6 BUN 9 Creatinine 0.91 Estim Creat Clear Calc 131.55 Est GFR (MDRD) Af Amer 119 Est GFR (MDRD) Non-Af 98 BUN/Creatinine Ratio 9.9 L Glucose 97 Calcium 8.9 Magnesium 2.1 Troponin I < 0.015 Urine Opiates Screen Urine Methadone Screen Ur Barbiturates Screen Ur Phencyclidine Scrn Ur Amphetamines Screen U Methamphetamin-MDMA U Benzodiazepines Scrn Urine Cocaine Screen U Cannabinoids Screen Ur Drug Screen Comment Acid Fast Stain HIV 1&2 Antibody MRSA (PCR) TB Test (QFT) Nil Pending TB Test (QFT) Mitogen Pending TB Test (QFT) Antigen Pending TB Test Antigen - Nil Pending TB Test (QFT) Pending TB Positive Criteria Pending TB Test (QFT) Interp Pending Miscellaneous Cytology Miscellaneous Test 07/29/18 07/29/18 07/29/18 01:30 01:30 01:30 WBC RBC Hgb Hct MCV MCH MCHC RDW RDW Differential Plt Count MPV Immature Gran % (Auto) Neut % (Auto) Lymph % (Auto) [place] % (Auto) Eos % (Auto) Baso % (Auto) Absolute Neuts (auto) Absolute Lymphs (auto) Total Counted D-Dimer Quant (PE/DVT) Sodium Potassium Chloride Carbon Dioxide Anion Gap BUN Creatinine Estim Creat Clear Calc Est GFR (MDRD) Af Amer Est GFR (MDRD) Non-Af BUN/Creatinine Ratio Glucose Calcium Magnesium Troponin I Urine Opiates Screen Urine Methadone Screen Ur Barbiturates Screen Ur Phencyclidine Scrn Ur Amphetamines Screen U Methamphetamin-MDMA U Benzodiazepines Scrn Urine Cocaine Screen U Cannabinoids Screen Ur Drug Screen Comment Acid Fast Stain Pending HIV 1&2 Antibody Non-Reactive MRSA (PCR) TB Test (QFT) Nil TB Test (QFT) Mitogen TB Test (QFT) Antigen TB Test Antigen - Nil TB Test (QFT) TB Positive Criteria TB Test (QFT) Interp Miscellaneous Cytology Pending Miscellaneous Test Pending 07/29/18 07/29/18 01:30 09:40 WBC RBC Hgb Hct MCV MCH MCHC RDW RDW Differential Plt Count MPV Immature Gran % (Auto) Neut % (Auto) Lymph % (Auto) [place] % (Auto) Eos % (Auto) Baso % (Auto) Absolute Neuts (auto) Absolute Lymphs (auto) Total Counted D-Dimer Quant (PE/DVT) Sodium Potassium Chloride Carbon Dioxide Anion Gap BUN Creatinine Estim Creat Clear Calc Est GFR (MDRD) Af Amer Est GFR (MDRD) Non-Af BUN/Creatinine Ratio Glucose Calcium Magnesium Troponin I Urine Opiates Screen Urine Methadone Screen Ur Barbiturates Screen Ur Phencyclidine Scrn Ur Amphetamines Screen U Methamphetamin-MDMA U Benzodiazepines Scrn Urine Cocaine Screen U Cannabinoids Screen Ur Drug Screen Comment Acid Fast Stain Pending HIV 1&2 Antibody MRSA (PCR) Negative TB Test (QFT) Nil TB Test (QFT) Mitogen TB Test (QFT) Antigen TB Test Antigen - Nil TB Test (QFT) TB Positive Criteria TB Test (QFT) Interp Miscellaneous Cytology Pending Miscellaneous Test Clinical Impression(s) from Imaging Studies Chest X-Ray 07/28/18 21:05 IMPRESSION: Normal x-ray examination of the chest. Electronically Signed: Olegario Jimenez MD at 21:32 EDT , Service support , Chest CTA 07/28/18 21:29 IMPRESSION: 1. Multiple bilateral pulmonary nodules with mediastinal and hilar adenopathy. Differential considerations are noted above. 2. No evidence of pulmonary embolus or aortic dissection. Dr. Mosher called findings to Dr. Ford at 10:33 PM. N.B. : The above information has been verbally conveyed by Marlin Mosher MD to Jessica Ford MD, on 07/28/2018 22:34:46 (ET). Electronically Signed: Marlin Mosher MD at 22:34 EDT Tel , Service support , Assessment/Plan RECOMMENDATIONS: 1. Await AFB screen 2. Await sputum culture, antibiotics if indicated 3. Probable outpatient endobronchial ultrasound IMPRESSIONS: 1. Abnormal CT scan Unclear etiology at this time. Ruling out patient for active tuberculosis is appropriate. Patient does have scattered nodules that may be secondary to previous tuberculosis or represent metastatic disease. Patient does have significant hilar lymphadenopathy. Will await sputum culture. If culture positive, anticipate treating with antibiotics and repeating CT scan in 6-8 weeks. If cultures are negative, patient can likely be discharged with plans for an outpatient endobronchial ultrasound for evaluation of possible lymphoma. Patient does have a history of weight loss and night sweats. Other possible etiologies are sarcoidosis or metastatic cancer. Patient is not of the age that would require a colonoscopy by routine screening. 2. Tobacco abuse/unintentional weight loss Complicates care, management, recovery and prognosis. Encourage smoking cessation. Outpatient pulmonary function test for evaluation of possible early COPD would be appropriate. Code Visit Inpatient E&M: 87674 Init Hosp L3
--- NOTE | 2018-07-29 12:19 | PCM.HP.ID ---
Problem List (1) Night sweats Status: Acute Reason for Consult: suspected tb Consulted by: Dr. Taveras History of Present Illness: The patient is a 38 year old M who reports treatment for TB around age 6 after exposed to uncle with infection, presented yesterday with 2 days of severe L sided sharp rib pain, worse with deep breaths. Reports 6 months of 30lb weight loss, unintentional, no change in appetite. Several months of drenching night sweats several times a week. No hemoptysis; no change in chronic sputum production. No vision changes, no focal weakness. Some abd cramping for past few days. No travel out of state or out of country. No rash. Some chronic back pain, unchanged. 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 No hot tubs. No animal exposures. Reports a lot of bird droppings in yard. No h/o ivdu. Came to ED, CT done. Admitted for tb rule out. Full ROS performed and neg except as noted above. - Medical History Allergies/Adverse Reactions: Allergies No Known Allergies Allergy (Verified 07/28/18 20:53) Home Medications: Ambulatory Orders Medication Instructions Recorded NK 07/28/18 - Social History Tobacco Use: cigarettes Vital Signs Temp Pulse Resp BP Pulse Ox 98.4 F 90 20 H 116/70 95 07/29/18 07:57 07/29/18 11:16 07/29/18 11:16 07/29/18 07:57 07/29/18 07:57 Oxygen Delivery Method Room Air Weight: 85.3 kg Body Mass Index (BMI) 23.5 Microbiology Past 72 Hours 07/29/18 01:25 Respiratory Panel (PCR) - Final Mucosa - Nasopharyngeal 07/29/18 01:30 Gram Stain - Preliminary Sputum, Expectorated/Coughed 07/29/18 00:30 Streptococcus pneumoniae Antigen (M - Final Urine, Clean Catch 07/29/18 00:30 Legionella Antigen - Final Urine, Clean Catch Laboratory Tests Past 24 Hrs 07/28/18 07/28/18 07/28/18 00:30 21:00 21:00 WBC 8.9 RBC 4.96 Hgb 14.7 Hct 43.2 MCV 87.1 MCH 29.6 MCHC 34.0 RDW 13.0 RDW Differential 41.4 Plt Count 218 MPV 9.9 Immature Gran % (Auto) 0.200 Neut % (Auto) 45.1 L Lymph % (Auto) 43.0 H [place] % (Auto) 10.2 H Eos % (Auto) 0.9 Baso % (Auto) 0.6 Absolute Neuts (auto) 4.0 Absolute Lymphs (auto) 3.83 Total Counted Not Reportable D-Dimer Quant (PE/DVT) 1.02 H* Sodium Potassium Chloride Carbon Dioxide Anion Gap BUN Creatinine Estim Creat Clear Calc Est GFR (MDRD) Af Amer Est GFR (MDRD) Non-Af BUN/Creatinine Ratio Glucose Calcium Magnesium Troponin I Urine Opiates Screen POSITIVE H Urine Methadone Screen NEGATIVE Ur Barbiturates Screen NEGATIVE Ur Phencyclidine Scrn NEGATIVE Ur Amphetamines Screen NEGATIVE U Methamphetamin-MDMA NEGATIVE U Benzodiazepines Scrn NEGATIVE Urine Cocaine Screen NEGATIVE U Cannabinoids Screen POSITIVE H Ur Drug Screen Comment Acid Fast Stain HIV 1&2 Antibody MRSA (PCR) TB Test (QFT) Nil TB Test (QFT) Mitogen TB Test (QFT) Antigen TB Test Antigen - Nil TB Test (QFT) TB Positive Criteria TB Test (QFT) Interp Miscellaneous Cytology Miscellaneous Test 07/28/18 07/28/18 07/29/18 21:00 21:00 01:30 WBC RBC Hgb Hct MCV MCH MCHC RDW RDW Differential Plt Count MPV Immature Gran % (Auto) Neut % (Auto) Lymph % (Auto) [place] % (Auto) Eos % (Auto) Baso % (Auto) Absolute Neuts (auto) Absolute Lymphs (auto) Total Counted D-Dimer Quant (PE/DVT) Sodium 140 Potassium 3.5 Chloride 104 Carbon Dioxide 30.0 Anion Gap 6 BUN 9 Creatinine 0.91 Estim Creat Clear Calc 131.55 Est GFR (MDRD) Af Amer 119 Est GFR (MDRD) Non-Af 98 BUN/Creatinine Ratio 9.9 L Glucose 97 Calcium 8.9 Magnesium 2.1 Troponin I < 0.015 Urine Opiates Screen Urine Methadone Screen Ur Barbiturates Screen Ur Phencyclidine Scrn Ur Amphetamines Screen U Methamphetamin-MDMA U Benzodiazepines Scrn Urine Cocaine Screen U Cannabinoids Screen Ur Drug Screen Comment Acid Fast Stain HIV 1&2 Antibody MRSA (PCR) TB Test (QFT) Nil Pending TB Test (QFT) Mitogen Pending TB Test (QFT) Antigen Pending TB Test Antigen - Nil Pending TB Test (QFT) Pending TB Positive Criteria Pending TB Test (QFT) Interp Pending Miscellaneous Cytology Miscellaneous Test 07/29/18 07/29/18 07/29/18 01:30 01:30 01:30 WBC RBC Hgb Hct MCV MCH MCHC RDW RDW Differential Plt Count MPV Immature Gran % (Auto) Neut % (Auto) Lymph % (Auto) [place] % (Auto) Eos % (Auto) Baso % (Auto) Absolute Neuts (auto) Absolute Lymphs (auto) Total Counted D-Dimer Quant (PE/DVT) Sodium Potassium Chloride Carbon Dioxide Anion Gap BUN Creatinine Estim Creat Clear Calc Est GFR (MDRD) Af Amer Est GFR (MDRD) Non-Af BUN/Creatinine Ratio Glucose Calcium Magnesium Troponin I Urine Opiates Screen Urine Methadone Screen Ur Barbiturates Screen Ur Phencyclidine Scrn Ur Amphetamines Screen U Methamphetamin-MDMA U Benzodiazepines Scrn Urine Cocaine Screen U Cannabinoids Screen Ur Drug Screen Comment Acid Fast Stain Pending HIV 1&2 Antibody Non-Reactive MRSA (PCR) TB Test (QFT) Nil TB Test (QFT) Mitogen TB Test (QFT) Antigen TB Test Antigen - Nil TB Test (QFT) TB Positive Criteria TB Test (QFT) Interp Miscellaneous Cytology Pending Miscellaneous Test Pending 07/29/18 07/29/18 01:30 09:40 WBC RBC Hgb Hct MCV MCH MCHC RDW RDW Differential Plt Count MPV Immature Gran % (Auto) Neut % (Auto) Lymph % (Auto) [place] % (Auto) Eos % (Auto) Baso % (Auto) Absolute Neuts (auto) Absolute Lymphs (auto) Total Counted D-Dimer Quant (PE/DVT) Sodium Potassium Chloride Carbon Dioxide Anion Gap BUN Creatinine Estim Creat Clear Calc Est GFR (MDRD) Af Amer Est GFR (MDRD) Non-Af BUN/Creatinine Ratio Glucose Calcium Magnesium Troponin I Urine Opiates Screen Urine Methadone Screen Ur Barbiturates Screen Ur Phencyclidine Scrn Ur Amphetamines Screen U Methamphetamin-MDMA U Benzodiazepines Scrn Urine Cocaine Screen U Cannabinoids Screen Ur Drug Screen Comment Acid Fast Stain Pending HIV 1&2 Antibody MRSA (PCR) Negative TB Test (QFT) Nil TB Test (QFT) Mitogen TB Test (QFT) Antigen TB Test Antigen - Nil TB Test (QFT) TB Positive Criteria TB Test (QFT) Interp Miscellaneous Cytology Pending Miscellaneous Test - Other Studies Radiology: [] reviewed Other Studies: [] Route of nutrition/ use of supplements: [] Nutritional Intake: [] IV Site: [] [place] Catheter: [] - Physical Exam General: Alert, Oriented x3, Cooperative, No apparent distress HEENT: Atraumatic, PERRLA, EOMI Neck: Supple, No Nodes Lungs: Clear to auscultation, Normal air movement Cardiovascular: Regular rate, Regular Rhythm, No murmurs Abdomen: Bowel Sounds Present, Soft, Non Tender, Non-Distended Extremities: No edema Skin: No rashes IV Site: Peripheral, without redness Musculoskeletal: No Tenderness to Palpation of Joints or Extremities Neurological: Cranial nerves II-XII grossly intact - Assessment/Plan Antibiotics: [] Assessment/Plan: [] Weight loss, night sweats, lung changes - 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 No hemoptysis. 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 Will order fungal work-up with sputum fungal cx, histo and aspergillus Abs, and fungal immunodiffusion. Sputum AFB x3 being collected today. Pulm following. No abx at this time. HIV was neg. Will follow, thank you, d/w Dr. Tejada.
[2018-07-29 18:10] LABS: Acid Fast Stain SEE PATHOLOGY REPORT; Cytology, Body Fluid / CSF SEE PATHOLOGY REPORT
[2018-07-29] MEDS: proMETHazine 25 MG/ML Syringe 12.5 MG IV (19:24)
[2018-07-30] VITALS (7 sets, daily range): BP systolic 100–130; BP diastolic 51–66; PULSE 74–105; RESP 16–20; TEMP 36.9–37.2; O2SAT 94–98
--- NOTE | 2018-07-30 | SPU_PTH ---
PATIENT: GUERRERO BAI LOC: ICU U#:[id number] AGE/SX: 38/M ROOM: [place] [address] RE07/28/[address]: Dr. Eliud Larios MD : 1980 BED: 1 DIS: 07/30/2018 SPEC #: [id number] RECD: 07/30/18 13:20 STATUS: ZAKI REQ #: [id number] SABRINA: 07/30/18 00:[address]: Eliud Larios DEPT: CYTOLOGY RECD BY: Misbah Russo ENTERED: 07/30/18 13:20 SP TYPE: Sputum Cy OTHR DR: MD Dr. Scott Moreno MD Dr. Robert Leininger, MD No Primary Care Phys Tissues: Sputum Procedures: Pap Stain (control) Special Stain Group II Special Stain Group I AFB Stain (control) Cytospin Fluid HEADER OPERATION: Not noted PRE-OP DIAGNOSIS: Chest pain, abnormal CT TISSUE SUBMITTED: Sputum #3 for cytology DIAGNOSIS CYTOLOGY Sputum #3 for cytology (cytospin and smears): Negative for malignant cells. Special stain for acid fast bacilli is negative for organisms; matched control is appropriate. SJ:alice 07/30/18 CYTOLOGY STUDY Slides are reviewed. The specimen consists of squamous cells, histiocytes, neutrophils and organisms consistent with bacteria. CYTOLOGY GROSS Received is <0.5 ml of thick white fluid labeled with the patient's name and and designated per the requisition as sputum. Submitted for cytology preparation. 07/30/18 TC:5 CPT: 68971, 30119
[2018-07-30] MEDS: 0.9% NaCl Peripheral Flush Adult/Peds IV (06:15)
[2018-07-30 06:31] LABS: Potassium 3.6 mmol/L (3.5-5.1)
--- NOTE | 2018-07-30 06:39 | PN_ITS ---
Patient Problems: Active and Suspected Problems Night sweats (Acute) Subjective: Patient did well overnight. No fevers were reported. Patient has tolerated room air. All sputum samples have been submitted, but no results are available at this time. Patient reports pleuritic chest pain is improved from previous. Patient is reporting some stiffness of the back and neck, but attributes this to the bed. Patient denies any nausea or vomiting. - Physical Exam General: Alert, Oriented x3, Cooperative, No apparent distress, Well developed, Well nourished, - - Speaking in full sentences HEENT: Atraumatic, PERRLA, EOMI, Normocephalic, - - No scleral icterus or i njection noted. Oral: Moist Mucosa, No Gingival or Mucosal Lesions/ Ulcerations, - - Good dentition Neck: Supple, No JVD, No Nodes, Trachea Midline Lungs: No rhonchi, No wheeze, Rales - Left base, - - Symmetric expansion. No dullness to percussion. Cardiovascular: Regular rate, Regular Rhythm, Normal S1, Normal S2, No murmurs, No rub noted, No Gallop Abdomen: Bowel Sounds Present, Soft, Non Tender, Non-Distended Extremities: No clubbing, No cyanosis, No edema, Capillary Refill Less than 3 Seconds Skin: No rashes, No breakdown Musculoskeletal: No Tenderness to Palpation of Joints or Extremities Lymphatic: No Cervical, Supraclavicular, or Inguinal Adenopathy Neurological: Cranial nerves II-XII grossly intact, Neuro grossly intact, Motor Exam 5/5 strength throughout Psych/Mental Status: Alert and oriented to time, place, person, mood and affect Vital Signs Temp Pulse Resp BP Pulse Ox 36.9 C 88 16 130/63 H 98 07/30/18 06:04 07/30/18 06:04 07/30/18 06:04 07/30/18 06:04 07/30/18 06:04 Oxygen Delivery Method Room Air Weight: 85.3 kg Body Mass Index (BMI) 23.5 Intake and Output for Last 24 Hours 07/28/18 07/29/18 07/30/18 23:59 23:59 23:59 Intake Total 2781 / 2781 500 / 500 Output Total 900 / 900 Balance 1881 / 1881 500 / 500 Microbiology Past 72 Hours 07/29/18 01:30 Gram Stain - Final Sputum, Expectorated/Coughed 07/29/18 01:25 Respiratory Panel (PCR) - Final Mucosa - Nasopharyngeal 07/29/18 00:30 Streptococcus pneumoniae Antigen (M - Final Urine, Clean Catch 07/29/18 00:30 Legionella Antigen - Final Urine, Clean Catch Laboratory Tests Past 24 Hrs 07/29/18 07/29/18 07/29/18 01:30 09:40 13:05 Potassium Acid Fast Stain Pending Histoplasma Antibody Pending HIV 1&2 Antibody Non-Reactive Aspergillus flavus Ab Pending Aspergill fumigatus Ab Pending Aspergillus niger Ab Pending Miscellaneous Cytology Pending Miscellaneous Test 07/29/18 07/29/18 07/30/18 14:20 17:40 06:12 Potassium 3.6 Acid Fast Stain Pending Histoplasma Antibody HIV 1&2 Antibody Aspergillus flavus Ab Aspergill fumigatus Ab Aspergillus niger Ab Miscellaneous Cytology Pending Miscellaneous Test Pending Medical Necessity - Tobacco Use Smoking Status: Current every day smoker Tobacco Use: Cigarettes Assessment/Plan All Active Problems Night sweats (Acute) RECOMMENDATIONS: 1. Await AFB screen results 2. Antibiotics per infectious disease 3. Probable outpatient endobronchial ultrasound IMPRESSIONS: 1. Abnormal CT scan Unclear etiology at this time. Ruling out patient for active tuberculosis is appropriate. Patient does have scattered nodules that may be secondary to previous tuberculosis or represent metastatic disease. Patient does have significant hilar lymphadenopathy. Patient has submitted all his sputums for AFB, but the first once is canceled. We will call lab to verify if another one is required. Results are not available at this time. Patient does have 1+ gram-positive cocci on Gram stain of the sputum. Viral workup is been negative. Defer antibiotics to infectious disease. HIV testing is negative. If patient is AFB negative and infectious disease does not believe an acute infection is occurring, patient can likely be discharged with plans for outpatient endobronchial ultrasound. 2. Tobacco abuse/unintentional weight loss Complicates care, management, recovery and prognosis. Encourage smoking cessation. Outpatient pulmonary function test for evaluation of possible early COPD would be appropriate. Code Visit Inpatient E&M: 41561 Subs Hosp L2
[2018-07-30] MEDS: Ipratropium/Albuterol Sulfate 3 ML AMPUL.NEB INHALATION ×2 (06:49→10:57)
[2018-07-30] MEDS: Famotidine 20 MG Tablet PO (07:43)
[2018-07-30] MEDS: HYDROcodone Bitartrate/Apap 5/325 Tablet PO (07:43)
[2018-07-30] MEDS: Enoxaparin 40 MG/0.4 ML Syringe SC (07:44)
--- NOTE | 2018-07-30 08:23 | PCM.PN.HOSP ---
Patient Problems: Active and Suspected Problems Night sweats (Acute) Subjective: Patient did not to spike temperature. Left-sided pleuritic chest pain has much improved. Discussed with ID and tank hoop bender. Vitals/I&O's: Vital Signs Temp Pulse Resp BP Pulse Ox 98.9 F 97 16 112/66 95 07/30/18 07:56 07/30/18 07:56 07/30/18 07:56 07/30/18 07:56 07/30/18 07:56 Oxygen Delivery Method Room Air Weight: 188 lb 0.869 oz Body Mass Index (BMI) 23.5 Intake and Output for Last 24 Hours 07/28/18 07/29/18 07/30/18 23:59 23:59 23:59 Intake Total 2781 / 2781 860 / 860 Output Total 900 / 900 Balance 1881 / 1881 860 / 860 General: Alert, Oriented x3, Cooperative HEENT: Atraumatic, PERRLA, EOMI, Normocephalic Neck: Supple, No JVD, Negative Carotid Bruits Lungs: Clear to auscultation, No rhonchi, No wheeze, No rales, Diminished Cardiovascular: Regular rate, Regular Rhythm, Normal S1, Normal S2, No murmurs Abdomen: Bowel Sounds Present, Soft, Non Tender, Non-Distended Extremities: No edema, Capillary Refill Less than 3 Seconds Skin: No rashes, No breakdown Musculoskeletal: No Tenderness to Palpation of Joints or Extremities, Arthritic Changes Neurological: Cranial nerves II-XII grossly intact Psych/Mental Status: Normal Affect, Appropriate Microbiology Past 72 Hours 07/29/18 01:30 Sputum, Expectorated/Coughed Gram Stain - Final 07/29/18 01:25 Mucosa - Nasopharyngeal Respiratory Panel (PCR) - Final 07/29/18 00:30 Urine, Clean Catch Streptococcus pneumoniae Antigen (M - Final 07/29/18 00:30 Urine, Clean Catch Legionella Antigen - Final Laboratory Results 07/29/18 01:30: HIV 1&2 Antibody Non-Reactive 07/29/18 09:40: Acid Fast Stain Pending, Miscellaneous Cytology Pending 07/29/18 13:05: Histoplasma Antibody Pending, Aspergillus flavus Ab Pending, Aspergill fumigatus Ab Pending, Aspergillus niger Ab Pending 07/29/18 14:20: Miscellaneous Test Pending 07/29/18 17:40: Acid Fast Stain Pending, Miscellaneous Cytology Pending 07/30/18 06:12: Potassium 3.6 Current Medications Hydrocodone Bitart/Acetaminophen ([place] 5mg-325mg) 1 - 2 tablet PO Q6H PRN PRN PRN Reason: Moderate-severe pain Last Admin: 07/30/18 07:43 Dose: 1 tablet Al Hydroxide/Mg Hydroxide (Mylanta Ii) 30 ml PO Q6H PRN PRN PRN Reason: Gastric burning Albuterol Sulfate (Ventolin Aerosols) 2.5 mg INHALATION Q2H PRN PRN PRN Reason: dyspnea, wheezing Albuterol/Ipratropium (Duoneb) 3 ml INHALATION Q4HWA.RT [facility] Last Admin: 07/30/18 06:49 Dose: 3 ml Enoxaparin Sodium (Lovenox) 40 mg SC DAILY@1000 ESTRADA Last Admin: 07/30/18 07:44 Dose: 40 mg Famotidine (Pepcid) 20 mg PO BID [facility] Last Admin: 07/30/18 07:43 Dose: 20 mg Sodium Chloride () 250 mls @ 15 mls/hr IV .[id number] PRN PRN Reason: SALINE FLUSH Magnesium Hydroxide (Milk Of Magnesia) 30 ml PO DAILY PRN PRN Reason: Constipation Morphine Sulfate () 1 - 2 mg IV Q4H PRN PRN PRN Reason: PAIN Last Admin: 07/29/18 19:24 Dose: 2 mg Nicotine (Nicoderm Cq (Pbkc)) 21 mg TRANSDERM. DAILY [facility] Last Admin: 07/29/18 09:27 Dose: 21 mg Nutritional Formula (Lactose Free) (Ensure Enlive) 120 ml PO 4X/DAY [facility] Last Admin: 07/29/18 21:50 Dose: 120 ml Ondansetron HCl (Zofran) 4 mg IV Q8H PRN PRN PRN Reason: NAUSEA Last Admin: 07/29/18 13:12 Dose: 4 mg Promethazine HCl (Phenergan) 12.5 mg IV Q6H PRN PRN PRN Reason: NAUSEA/VOMITING Last Admin: 07/29/18 19:24 Dose: 12.5 mg Sodium Chloride () 5 - 30 ml IV UD PRN PRN Reason: SALINE FLUSH Last Admin: 07/30/18 06:15 Dose: 10 ml Sodium Chloride (Sodium Chloride 3%) 3 ml INHALATION Q8H.RT [facility] Stop: 07/31/18 08:16 Temazepam (Restoril) 15 mg PO QHS PRN PRN PRN Reason: insomnia Last Admin: 07/29/18 01:24 Dose: 15 mg Medical Necessity - Tobacco Use Smoking Status: Current every day smoker Tobacco Use: Cigarettes Assessment/Plan All Active Problems Night sweats (Acute) The patient is a 38 y/o M with history of tobacco use, possible history of of TB at 6 years of his age with treatment for 1 year who presents to the [facility] ED on 07/28/18 with history of left sided pleuritic chest pain starting the day prior, chronic mild sputum productive unchanged from baseline, 30-40 lb weight loss over the last 6 months, night sweats over the last several days without any ongoing fever or chills. 1. Suspicion for pulmonary tuberculosis: Patient is being admitted in airborne isolation. On protocol for rule out TB with 3 sputum culture for AFB. Urinary antigens are negative. Respiratory panel negative. Gram stain sputum culture pending. HIV serology test is nonreactive chest CT done in ED shows multiple bilateral pulmonary nodules with mediastinal and hilar adenopathy. PPD, QuantiFERON gold test are pending On pain control for pleuritic chest pain. Bronchodilator as needed. ID Dr. Dasilva thinks more of fungal infection and is ordered sputum fungal culture, histoplasmosis and aspergillosis antibodies and fungal immunodiffusion test. 2. Chronic tobacco use: Smoking cessation advised. On nicotine. 3. Depression: 4. DVT prophylaxis: On Lovenox. Microbiology Past 72 Hours 07/29/18 01:30 Sputum, Expectorated/Coughed Gram Stain - Final 07/29/18 01:25 Mucosa - Nasopharyngeal Respiratory Panel (PCR) - Final 07/29/18 00:30 Urine, Clean Catch Streptococcus pneumoniae Antigen (M - Final 07/29/18 00:30 Urine, Clean Catch Legionella Antigen - Final Laboratory Results 07/29/18 01:30: HIV 1&2 Antibody Non-Reactive 07/29/18 09:40: Acid Fast Stain Pending, Miscellaneous Cytology Pending 07/29/18 13:05: Histoplasma Antibody Pending, Aspergillus flavus Ab Pending, Aspergill fumigatus Ab Pending, Aspergillus niger Ab Pending 07/29/18 14:20: Miscellaneous Test Pending 07/29/18 17:40: Acid Fast Stain Pending, Miscellaneous Cytology Pending 07/30/18 06:12: Potassium 3.6 Clinical Impression(s) from Imaging Studies Chest X-Ray 07/28/18 21:05 IMPRESSION: Normal x-ray examination of the chest. Electronically Signed: Olegario Jimenez MD at 21:32 EDT , Service support , Chest CTA 07/28/18 21:29 IMPRESSION: 1. Multiple bilateral pulmonary nodules with mediastinal and hilar adenopathy. Differential considerations are noted above. 2. No evidence of pulmonary embolus or aortic dissection. Active Medications Hydrocodone Bitart/Acetaminophen ([place] 5mg-325mg) 1 - 2 tablet PO Q6H PRN PRN PRN Reason: Moderate-severe pain Last Admin: 07/29/18 07:52 Dose: 1 tablet Al Hydroxide/Mg Hydroxide (Mylanta Ii) 30 ml PO Q6H PRN PRN PRN Reason: Gastric burning Albuterol Sulfate (Ventolin Aerosols) 2.5 mg INHALATION Q2H PRN PRN PRN Reason: dyspnea, wheezing Albuterol/Ipratropium (Duoneb) 3 ml INHALATION Q4HWA.RT [facility] Last Admin: 07/29/18 06:45 Dose: 3 ml Enoxaparin Sodium (Lovenox) 40 mg SC DAILY@1000 ESTRADA Famotidine (Pepcid) 20 mg PO BID [facility] Sodium Chloride () 1,000 mls @ 125 mls/hr IV .Q8H ESTRADA Last Admin: 07/29/18 01:23 Dose: 125 mls/hr Sodium Chloride () 250 mls @ 15 mls/hr IV .[id number] PRN PRN Reason: SALINE FLUSH Magnesium Hydroxide (Milk Of Magnesia) 30 ml PO DAILY PRN PRN Reason: Constipation Morphine Sulfate () 1 - 2 mg IV Q4H PRN PRN PRN Reason: PAIN Last Admin: 07/29/18 01:24 Dose: 2 mg Nicotine (Nicoderm Cq (Pbkc)) 21 mg TRANSDERM. DAILY [facility] Last Admin: 07/29/18 01:24 Dose: 21 mg Nutritional Formula (Lactose Free) (Ensure Enlive) 120 ml PO 4X/DAY [facility] Ondansetron HCl (Zofran) 4 mg IV Q8H PRN PRN PRN Reason: NAUSEA Last Admin: 07/29/18 01:24 Dose: 4 mg Promethazine HCl (Phenergan) 12.5 mg IV Q6H PRN PRN PRN Reason: NAUSEA/VOMITING Sodium Chloride () 5 - 30 ml IV UD PRN PRN Reason: SALINE FLUSH Last Admin: 07/29/18 01:24 Dose: 20 ml Sodium Chloride (Sodium Chloride 3%) 3 ml INHALATION Q8H.RT ESTRADA Stop: 07/31/18 08:16 Temazepam (Restoril) 15 mg PO QHS PRN PRN PRN Reason: insomnia Last Admin: 07/29/18 01:24 Dose: 15 mg Code Visit Inpatient E&M: 39493 [facility] Hosp L3
--- NOTE | 2018-07-30 09:48 | CASEMGMT ---
RN CM Assessment. Pt presented to ER with severe L pleuritic chest pain. ? TB due to multiple pulm nodules on CT. Chart review as pt is in TB isolation. PCP: None Preferred Pharmacy: [facility] Retail Insurance: self pay LNOK: , lives with and children Prescription Benefit:? NO Living Will/HPOA: NO SW consult: Yes, prescription support, self pay, information on community resources including [facility], etc. ? Plan: Home on dc. May need prescription support.
--- NOTE | 2018-07-30 11:26 | PN.ID_ITS ---
Patient Problems: Active and Suspected Problems Night sweats (Acute) Subjective: Feeling well, no fever, no chest pain. - Physical Exam General: Alert, Cooperative, No apparent distress Lungs: Clear to auscultation, Normal air movement Cardiovascular: Regular rate, Regular Rhythm Abdomen: Soft, Non Tender, Non-Distended Skin: No rashes Vital Signs Temp Pulse Resp BP Pulse Ox 98.9 F 88 18 112/66 95 07/30/18 07:56 07/30/18 10:58 07/30/18 10:58 07/30/18 07:56 07/30/18 07:56 Oxygen Delivery Method Room Air Weight: 85.3 kg Body Mass Index (BMI) 23.5 Intake and Output for Last 24 Hours 07/28/18 07/29/18 07/30/18 23:59 23:59 23:59 Intake Total 2781 / 2781 860 / 860 Output Total 900 / 900 Balance 1881 / 1881 860 / 860 Microbiology Past 72 Hours 07/29/18 01:30 Gram Stain - Final Sputum, Expectorated/Coughed Respiratory Culture - Preliminary Appears to be normal respiratory rocio. Further studies to follow. 07/29/18 01:25 Respiratory Panel (PCR) - Final Mucosa - Nasopharyngeal 07/29/18 00:30 Streptococcus pneumoniae Antigen (M - Final Urine, Clean Catch 07/29/18 00:30 Legionella Antigen - Final Urine, Clean Catch Laboratory Tests Past 24 Hrs 07/29/18 07/29/18 07/29/18 13:05 14:20 17:40 Potassium Acid Fast Stain Pending Histoplasma Antibody Pending Aspergillus flavus Ab Pending Aspergill fumigatus Ab Pending Aspergillus niger Ab Pending Miscellaneous Cytology Pending Miscellaneous Test Pending 07/30/18 06:12 Potassium 3.6 Acid Fast Stain Histoplasma Antibody Aspergillus flavus Ab Aspergill fumigatus Ab Aspergillus niger Ab Miscellaneous Cytology Miscellaneous Test Medical Necessity - Tobacco Use Smoking Status: Current every day smoker Tobacco Use: Cigarettes Route of nutrition/ use of supplements: [] Nutritional Intake: [] IV Site: [] [place] Catheter: [] - Assessment/Plan Antibiotics: [] Assessment/Plan: [] Weight loss, night sweats, lung changes - 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 No hemoptysis. 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 Pending fungal work-up with sputum fungal cx, histo and aspergillus Abs, and fungal immunodiffusion. Sputum AFB x3 collected. NAAT for TB pending. 2 AFB smears neg per discussion with pathologist. Pulm following. No abx at this time. HIV was neg. Ok for d/c home with plans for outpatient bronch in the next few weeks. Will follow, d/w Dr. Tejada.
--- NOTE | 2018-07-30 11:45 | PCM.DC ---
- Discharge Diagnoses Current Active Problems: Current Active and Chronic Problems Night sweats (Acute) You will use the following diet at home:: Regular Your food should be the consistency of: Regular Discharge Activity: Return to Normal Activity Call your doctor if you observe: Fever of 101 or Higher, Numbness or Tingling, Inability to urinate, Inability to have a bowel movement, Shortness of breath, Fainting spells Allergies/Adverse Reactions: Allergies No Known Allergies Allergy (Verified 07/28/18 20:53) Medications to take at Discharge Albuterol Inhaler [Ventolin Hfa] 2 puff INHALATION Q4H PRN PRN #1 inhaler 07/30/18 The following prescriptions were given: Albuterol Inhaler [Ventolin Hfa] 2 puff INHALATION Q4H PRN PRN #1 inhaler PRN Reason: Shortness Of Breath Primary Care Physician: Care Physician,No Primary [Primary Care Provider] - Test Results: Test results from this visit will be discussed in further detail at your follow-up appointment, if applicable. Please Follow Up With: Louise Francisco, MARIXA-C When: IN 2 WEEKS Please Follow Up With: Scott Tejada MD When: IN 4 WEEKS for outpat Bronch, PFT Please Follow Up With: Rafa Herrera MD When: in 3-4 weeks for F/U fungal microbiology test
--- NOTE | 2018-07-30 12:02 | DCINST_ITS ---
- Discharge Diagnoses Current Active Problems: Current Active and Chronic Problems Night sweats (Acute) You will use the following diet at home:: Regular Your food should be the consistency of: Regular Discharge Activity: Return to Normal Activity Call your doctor if you observe: Fever of 101 or Higher, Numbness or Tingling, Inability to urinate, Inability to have a bowel movement, Shortness of breath, Fainting spells Allergies/Adverse Reactions: Allergies No Known Allergies Allergy (Verified 07/28/18 20:53) Medications to take at Discharge Albuterol Inhaler [Ventolin Hfa] 2 puff INHALATION Q4H PRN PRN #1 inhaler 07/30/18 The following prescriptions were given: Albuterol Inhaler [Ventolin Hfa] 2 puff INHALATION Q4H PRN PRN #1 inhaler PRN Reason: Shortness Of Breath Primary Care Physician: Care Physician,No Primary [Primary Care Provider] - Test Results: Test results from this visit will be discussed in further detail at your follow- up appointment, if applicable. Please Follow Up With: Louise Francisco, MARIXA-C When: IN 2 WEEKS Please Follow Up With: Scott Tejada MD When: IN 4 WEEKS for outpat Bronch, PFT Please Follow Up With: Rafa Herrera MD When: in 3-4 weeks for F/U fungal microbiology test
--- NOTE | 2018-07-30 12:12 | DS.PCM_ITS ---
Discharge Date and Diagnosis Date of Admission: 07/28/18 Date of Discharge: 07/30/18 - Primary Discharge Diagnosis Active and Suspected Problems Night sweats (Acute) chronic lung disease probably fungal infection; diagnosis/etiology unclear Hospital Course and Treatment Summary of Care Provided: [] The patient is a 38 y/o M with history of tobacco use, possible history of of TB at 6 years of his age with treatment for 1 year who presents to the [facility] ED on 07/28/18 with history of left sided pleuritic chest pain starting the day prior, chronic mild sputum productive unchanged from baseline, 30-40 lb weight loss over the last 6 months, night sweats over the last several days without any ongoing fever or chills. Patient was seen and examined today. Please see progress note today 1. chronic lung disease probably fungal infection; diagnosis/etiology unclear: Patient WAS being admitted in airborne isolation. Patient had 2 AFB smears negative and third [address] Herrera discussed with the patho logist/microbiology lab and advised patient can go home. TB is ruled out. Patient has preliminary sputum culture growing normal respiratory orcio. Urinary antigens are negative. Respiratory panel negative. HIV serology test is nonreactive chest CT done in ED shows multiple bilateral pulmonary nodules with mediastinal and hilar adenopathy. PPD, QuantiFERON gold test are pending. Patient was advised to follow-up Louise Francisco in 2 weeks in pulmonary clinic and Dr. Tejada in 4 weeks for outpatient bronchoscopy and PFT. Follow-up with Dr. Dasilva as needed until fungal studies are reported. ID Dr. Dasilva thinks more of fungal infection and is ordered sputum fungal culture, histoplasmosis and aspergillosis antibodies and fungal immunodiffusion test. 2. Chronic tobacco use: Smoking cessation advised. On nicotine. 3. Depression: 4. DVT prophylaxis: On Lovenox. Discharge Activity: Return to Normal Activity Call your doctor if you observe: Fever of 101 or Higher, Numbness or Tingling, Inability to urinate, Inability to have a bowel movement, Shortness of breath, Fainting spells Home Medications: Medications to take at Discharge Albuterol Inhaler [Ventolin Hfa] 2 puff INHALATION Q4H PRN PRN #1 inhaler 07/30/18 Following Prescrptions Were Given to Patient: Albuterol Inhaler [Ventolin Hfa] 2 puff INHALATION Q4H PRN PRN #1 inhaler PRN Reason: Shortness Of Breath Primary Care Physician: Care Physician,No Primary [Primary Care Provider] - Please Follow Up With: Louise Francisco NP-C When: IN 2 WEEKS Please Follow Up With: Scott Tejada MD When: IN 4 WEEKS for outpat Bronch, PFT Please Follow Up With: Rafa Herrera MD When: in 3-4 weeks for F/U fungal microbiology test Medical Necessity - Tobacco Use Smoking Status: Current every day smoker Tobacco Use: Cigarettes Meaningful Use Info Meaningful Use Diagnoses (Choose all that apply): None applicable Code Visit Inpatient E&M: 87473 [facility] Hosp
--- NOTE | 2018-07-30 12:30 | CASEMGMT ---
Social Work Note Pt is out of TB precautions and is discharging today. SW met with pt. SW provided pt with self pay resources including prescription assistance resources, [place] [id number], [employer], HCAP application, Medicaid application and [facility] information. 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
[2018-08-02 03:07] LABS: Aspirgillus flavus Negative (Neg:<1:1); Aspirgillus fumigatus Negative (Neg:<1:1); Aspirgillus niger Negative (Neg:<1:1)
[2018-08-02 20:07] LABS: QNTFERON TB Ag Minus Nil Value 0.15 IU/mL (.); QNTFERON TB Ag Value 0.39 IU/mL (.); QNTFERON TB Mitogen Value > 10.00 IU/mL (.); QNTFERON TB Nil Value 0.24 IU/mL (.)
[2018-08-03 12:09] LABS: QNTIFERON TB Gold Negative (Negative)
== END 2018-07-30 12:45 | disposition home or self-care (01) | DRG 869 ==
LOC: ED 21:10 → ICU 23:36
PROVIDERS: Internal Medicine Infectious Disease; Admitting Provider Family Medicine; Emergency Provider Emergency Medicine; Visit Provider Internal Medicine
DX: B49 Unspecified mycosis (principal); J98.4 Other disorders of lung; R61 Generalized hyperhidrosis; F17.210 Nicotine dependence, cigarettes, uncomplicated; R59.0 Localized enlarged lymph nodes; R63.4 Abnormal weight loss; Z68.23 Body mass index [BMI] 23.0-23.9, adult
CPT/HCPCS: 71045; 71275; 80048; 80307; 83735; 84132; 84484; 85025; 85379; 86480; 86606; 86698; 86703; 87015; 87070; 87077; 87102; 87106; 87116; 87205; 87206; 87449; 87633; 87641; 88108; 88312; 88313; 93005; 94640; 97802; 99285; 99406; J7030; Q9967; A4216; J2405

== ENCOUNTER 2018-08-11 05:50 | Emergency (ER) | payer SELFPAY ==
[2018-08-11 05:51] VITALS: BP 112/81; PULSE 81; RESP 20; TEMP 36.6; O2SAT 95; BMI 22.5
--- NOTE | 2018-08-11 06:05 | EKG12_ITS ---
Test Reason : CP Blood Pressure : / mmHG Vent. Rate : 070 BPM Atrial Rate : 070 BPM P-R Int : 176 ms QRS Dur : 090 ms QT Int : 370 ms P-R-T Axes : 057 078 063 degrees QTc Int : 399 ms Normal sinus rhythm Normal ECG Confirmed by IKER OGDEN, SILVER ([id number]), editor in chief newspaper VERENA CONTRERAS ([id number]) on 08/12/2018 3:30:53 PM Referred By: LARRY Confirmed By:SILVER DONG MD
--- NOTE | 2018-08-11 06:06 | ED.VISSUMM ---
- ER Visit Summary Date of Service: 08/11/18 Chief Complaint: [] Left-sided chest pain History of Present Illness: The patient is a 38 M cup this morning with pleuritic left-sided chest pain at 530. Is been continuous sharp. Hurts to take a deep breath. Was seen for similar pain and admitted recently. He had a full workup including lab work imaging including CAT scan chest showed no PE. No cardiac risk factors. It lasted for a day and then went away. He was discharged. They put him he has some mild lymph node enlargement on his chest CT that is following up with Dr. Tejada with pulmonology. Cytology showed no evidence of cancer. He denies any cardiovascular risk factors except for smoking. He has been taking anything at home as the pain went away and came back just today. Physical Examination: [] Vital signs reviewed General: Well-nourished well-developed Head: Normocephalic atraumatic Eyes: Pupils equal round and reactive to light extraocular movements intact ENT: TMs clear no hemotympanum no trauma Neck: Nontender full range of motion Cardiovascular: Regular rate rhythm no murmurs normal S1-S2 Respiratory: No distress clear to auscultation bilaterally chest nontender Abdomen: Soft nontender nondistended normal bowel sounds no masses Back: Nontender no CVA tenderness Extremities: Nontender active range of motion ?4 extremities no trauma Skin: Normal color no trauma Neuro alert oriented cranial nerves II through XII intact normal strength sensation reflexes Test Results: [] Emergency Department Course and Treatment: [] Patient given intramuscular morphine and Toradol. EKG and repeat chest x-ray obtained. EKG shows sinus at 70 without ischemia or arrhythmia. Chest x-ray normal. Patient will be discharged to continue ibuprofen [id number]. I think he has pleurisy or costochondritis. I think it is most likely pleurisy. He is to follow-up with pulmonology as well. Treatment Plan: [] Disposition: [] Impression: [] Left-sided pleurisy This note was generated with [employer] dictation software. It may contain incorrect words, spelling, and punctuation that were not noted in review of the chart prior to signing ED Disposition - Plan for ED Patient: Chief Complaint: Chest Other Referrals: Care Physician,No Primary [Primary Care Provider] -
--- NOTE | 2018-08-11 06:16 | ED.DEP ---
ED Disposition - Plan for ED Patient: Disposition: Home or Assisted Living Chief Complaint: Chest Other Instructions: ED Chest Pain Pleurisy Referrals: Care Physician,No Primary [Primary Care Provider] - Scott Tejada MD [STAFF PHYSICIAN] -
[2018-08-11] MEDS: Ondansetron ODT 4 MG Tablet 8 MG PO (06:19)
[2018-08-11] MEDS: Morphine 4 MG/ML Syringe IM (06:19)
[2018-08-11] MEDS: Ketorolac 30 MG/ML Syringe IM (06:19)
--- NOTE | 2018-08-11 06:28 | RAD_ITS ---
STUDY: X-RAY CHEST REASON FOR EXAM: Male, 38 years old. Chest pain. TECHNIQUE: PA and lateral views of the chest. COMPARISON: 07/28/2018 FINDINGS: There is mild hyperinflation of the lungs possibly with chronic obstructive lung disease (COPD). Right infrahilar increased interstitial thickening. Peripherally in the left lung base a nonspecific 7 mm nodule. There is no demonstrated pleural abnormality. Normal size heart. There is a bilateral hilar lymphadenopathy. Normal visualized pulmonary arteries. Normal visualized aortic arch and descending thoracic aorta. There is demineralization of the osseous structures. Normal visualized ribs, clavicles, and shoulders. There is no demonstrated abnormality of the visualized soft tissue structures of the upper abdomen. RAD/Chest PA and Lateral IMPRESSION: 1. Bilateral hilar lymphadenopathy. Follow-up is advised. 2. A small 7 mm nonspecific lung nodule seen peripherally in the left lung base. 3. No acute cardiopulmonary abnormality demonstrated. Electronically Signed: Jame Villegas MD at 6:49 EDT Tel , Service support ,
[2018-08-11 06:43] VITALS: RESP 18
== END 2018-08-11 06:47 | disposition home or self-care (01) ==
PROVIDERS: Emergency Provider Emergency Medicine
DX: R09.1 Pleurisy (principal); F17.200 Nicotine dependence, unspecified, uncomplicated
CPT/HCPCS: 71046; 93005; 96372; 99283

== ENCOUNTER → 2018-09-11 07:17 | Outpatient (CLI) | payer MEDICAID, SELFPAY ==
[2018-09-11 07:43] LABS: Absolute Lymphocyte Count 2.12 X10^3/ul (0.83-4.51); Absolute Neutrophil Count 4.9 X10^3/uL (2.0-7.7); Basophil# 0.01 X10^3/uL; Basophil% 0.1 % (0-1); Eosinophil# 0.16 X10^3/uL; Hematocrit 44.1 % (40-54); Lymphocyte # 2.12 X10^3/ul (4.0); Lymphocyte % 26.4 % (19-41); Mean Corpuscular Hgb 29.1 pg (27.0-32.0); Mean Corpuscular Volume 85.6 fL (80-94); Monocyte# 0.83 X10^3/uL; Monocyte% 10.3 % (0-10); Neutrophil # 4.89 X10^3/uL (2.7-7.7); Neutrophil % 61.1 % (47-70); Platelet Count 217 K/mm3 (150-450); RBC Distribution Width SD 40.1 fl (35.1-43.9); Red Blood Count 5.15 M/mm3 (4.6-6.2)
[2018-09-11 07:47] LABS: POSITIVE COUNT NO; POSITIVE DIFFERENTIAL NO; POSITIVE MORPHOLOGY NO
[2018-09-11 08:28] LABS: Prothrombin Time (Protime)PT. 13.4 SECONDS (11.7-14.9)
[2018-09-11 08:29] LABS: Partial Thromboplast Time 30.8 Seconds (24.1-36.2)
== END ==
PROVIDERS: Referring Provider Nurse Practitioner Acute Care; Visit Provider Nurse Practitioner Acute Care
DX: R59.0 Localized enlarged lymph nodes (principal); R61 Generalized hyperhidrosis
CPT/HCPCS: 36415; 85025; 85610; 85730

== ENCOUNTER 2019-02-27 18:48 | Emergency (ER) | payer MEDICAID, SELFPAY ==
[2019-02-27 18:49] VITALS: BP 128/78; PULSE 84; RESP 18; TEMP 37; O2SAT 98; BMI 23.1
--- NOTE | 2019-02-27 20:12 | ED.VISSUMM ---
- ER Visit Summary Date of Service: 02/27/19 Chief Complaint: Dental abscess History of Present Illness: The patient is a 39 M who presents with dental abscess that he noticed today. Patient noted increased swelling to his left lower jaw today. Patient denies any fevers or chills. Patient states he has been using a topical mouthwash that has a topical anesthetic in it which helps with the pain. Patient states she took ibuprofen with no improvement. Patient denies any hot or cold sensitivity. Patient denies any difficulty breathing or difficulty swallowing. Physical Examination: Vital signs are stable. Patient is afebrile. Patient is in no acute distress. There are multiple dental caries. There is tenderness over the left lower lateral incisor and canine teeth. There is some gingival edema around these teeth. There is no fluctuance. There is no sublingual edema noted. There is no anterior cervical lymphadenopathy or sublingual or submandibular lymphadenopathy. Oral mucosa is pink and moist. Oropharynx is clear. Airway is patent. Heart was regular rate and rhythm. Lungs are clear and equal bilaterally. Cranial nerves II through XII are intact. There are no focal motor or sensory deficits noted. Emergency Department Course and Treatment: Patient was given prescription for Pen-Vee K and Naprosyn. Patient was instructed to follow-up with his dentist in 5 to 7 days. Patient understood and was agreeable with the plan. All questions were answered. Disposition: Discharge home Impression: 1. Infected dental caries This note was generated with [employer] dictation software. It may contain incorrect words, spelling, and punctuation that were not noted in review of the chart prior to signing ED Disposition - Plan for ED Patient: Disposition: Home or Assisted Living Diagnosis: Infected dental caries Instructions: ED Tooth Pain, ED Cavity Dental, ED Abscess Dental Prescriptions: Naproxen [Naprosyn] 500 mg PO BID PRN #20 tab Penicillin Vk [Pen-Vee K 250MG] 500 mg PO 4X/DAY #40 tab Referrals: Care Physician,No Primary [Primary Care Provider] -
--- NOTE | 2019-02-27 20:16 | ED.DCSUM_ITS ---
- ER Visit Summary Date of Service: 02/27/19 Chief Complaint: Dental abscess History of Present Illness: The patient is a 39 M who presents with dental abscess that he noticed today. Patient noted increased swelling to his left lower jaw today. Patient denies any fevers or chills. Patient states he has b een using a topical mouthwash that has a topical anesthetic in it which helps with the pain. Patient states she took ibuprofen with no improvement. Patient denies any hot or cold sensitivity. Patient denies any difficulty breathing or difficulty swallowing. Physical Examination: Vital signs are stable. Patient is afebrile. Patient is in no acute distress. There are multiple dental caries. There is tenderness over the left lower lateral incisor and canine teeth. There is some gingival edema around these teeth. There is no fluctuance. There is no sublingual edema noted. There is no anterior cervical lymphadenopathy or sublingual or submandibular lymphadenopathy. Oral mucosa is pink and moist. Oropharynx is clear. Airway is patent. Heart was regular rate and rhythm. Lungs are clear and equal bilaterally. Cranial nerves II through XII are intact. There are no focal motor or sensory deficits noted. Emergency Department Course and Treatment: Patient was given prescription for Pen-Vee K and Naprosyn. Patient was instructed to follow-up with his dentist in 5 to 7 days. Patient understood and was agreeable with the plan. All questions were answered. Disposition: Discharge home Impression: 1. Infected dental caries This note was generated with [employer] dictation software. It may contain incorrect words, spelling, and punctuation that were not noted in review of the chart prior to signing ED Disposition - Plan for ED Patient: Disposition: Home or Assisted Living Diagnosis: Infected dental caries Instructions: ED Tooth Pain, ED Cavity Dental, ED Abscess Dental Prescriptions: Naproxen [Naprosyn] 500 mg PO BID PRN #20 tab Penicillin Vk [Pen-Vee K 250MG] 500 mg PO 4X/DAY #40 tab Referrals: Care Physician,No Primary [Primary Care Provider] -
== END 2019-02-27 20:23 | disposition home or self-care (01) ==
PROVIDERS: Emergency Provider Emergency Medicine
DX: K04.7 Periapical abscess without sinus (principal); K02.9 Dental caries, unspecified; F17.200 Nicotine dependence, unspecified, uncomplicated
CPT/HCPCS: 99282

== ENCOUNTER 2020-04-16 10:57 | Emergency (ER) | payer MEDICAID, SELFPAY ==
[2020-04-16 10:59] VITALS: BP 125/79; PULSE 85; RESP 18; TEMP 36.6; O2SAT 99; BMI 24.3
[2020-04-16] MEDS: Ketorolac 30 MG/ML Syringe IV (12:00)
[2020-04-16] MEDS: Ondansetron 4 MG/2 ML Vial IV (12:01)
[2020-04-16] MEDS: 0.9% Normal Saline 1,000 ML 999 ML IV (12:01)
[2020-04-16 12:05] LABS: Bacteria 0 SEEN /hpf (None Seen); Mucous, Urine 0 SEEN /hpf (<or=2+); Red Blood Cells-Urine 0 SEEN /hpf (0-5); White Blood Cells 0 SEEN /hpf (0-5)
[2020-04-16 12:06] LABS: Color, Urine Yellow (Yellow); Glucose, Dipstick Normal (Normal); Ketone-Dipstick Negative (Negative); Leukocyte Esterase-Dipstick Negative /ul (Negative); Nitrite-Dipstick Negative (Negative); Occult Blood-Urine Negative /ul (Negative); Protein-Dipstick Negative (Negative); Urine Bilirubin Dipstick Negative (Negative); Urine Clarity Sl. Cloudy (Clear); Urine Urobilinogen Normal (Normal)
[2020-04-16 12:12] LABS: Squamous Epithelial Cells - UA 0-5 SEEN /hpf (0-5)
[2020-04-16 12:19] LABS: Anion Gap 2 (5-15); BUN 9 mg/dL (7-18); BUN/Creat Ratio 9.1 RATIO (10-20); Calcium,Total 9.4 mg/dL (8.5-10.1); Chloride 106 mmol/L (98-107); Creatinine, Serum 0.99 mg/dL (0.70-1.30); EST Glomerular Filtration Rate 89 mL/min (>60); Est Glom Filt Rate - Afr Amer 108 mL/min (>60); Estimated Creatinine Clearance 118.55 ml/min; Glucose 71 mg/dL (74-106); Potassium 3.8 mmol/L (3.5-5.1); Sodium Level 140 mmol/L (136-145)
--- NOTE | 2020-04-16 12:46 | ED.DCSUM_ITS ---
- ER Visit Summary Date of Service: 04/16/20 Chief Complaint: Back pain History of Present Illness: The patient is a 40 M with no primary care physician. He reports he has low back pain again 3 days ago. Says sharp pain is 8 of 10 at worst and 5-10 currently. Is worsened by movement and bending. Is relieved by nothing. Denies any ration to his legs. No numbness or weakness in his legs. No problems with his bowels or his bladder. No groin numbness. He denies any recent trauma. No fall, MVA, or change in activity. Patient reports he had similar symptoms previously with kidney infection/kidney stones. Physical Examination: Vitals: Stable. Afebrile. General: A&O x 3. NAD. Cardiovascular exam: Regular rate and rhythm, no murmur, rub or gallop. Respiratory exam: Clear to auscultation bilaterally. No wheezes or stridor. Abdominal exam: Soft, nontender, nondistended, normal bowel sounds. No peritoneal signs. Back: Diffuse moderate tenderness to palpation over the lumbar spine and the paraspinous musculature in the lumbar region. No point tenderness. Negative st raight leg bilaterally. 5/5 DF, PF, EHL bilaterally. Normal sensation to light touch throughout. Extremity: No clubbing, cyanosis, or edema. Test Results: UA is negative. Chem-7 is marked for glucose of 71. Emergency Department Course and Treatment: Patient had an IV placed. He is given a liter of normal saline. He is given Toradol and Zofran IV. He is resting comfortably. Treatment Plan: Patient be discharged instructions to push fluids. Use Tylenol and/or ibuprofen as needed for pain. Follow-up with the [facility] in 1 week if not improving. Return to the emergency department for any worsening symptoms. Disposition: To home in improved and stable condition. Impression: 1. Low back pain. This note was generated with [employer] dictation software. It may contain incorrect words, spelling, and punctuation that were not noted in review of the chart prior to signing ED Disposition - Plan for ED Patient: Disposition: Home or Assisted Living Instructions: ED LUMBAR SPRAIN/STRAIN Prescriptions: Naproxen [Naprosyn] 500 mg PO BID #14 tab Prescription Printed Referrals: [facility] [NON-STAFF] - 1 Week if not improving
== END 2020-04-16 12:57 | disposition home or self-care (01) ==
LOC: ED 11:41
PROVIDERS: Emergency Provider Emergency Medicine
DX: M54.5 Low back pain (principal); R11.0 Nausea; R51 Headache; Z87.442 Personal history of urinary calculi; F17.210 Nicotine dependence, cigarettes, uncomplicated
CPT/HCPCS: 80048; 81001; 96374; 96375; 99283; J7030; A4216; J2405

== ENCOUNTER 2020-06-23 03:07 | Emergency (ER) | payer MEDICAID, SELFPAY ==
[2020-06-23 03:08] VITALS: BP 128/85; PULSE 88; RESP 16; TEMP 36.3; O2SAT 98; BMI 25.3
--- NOTE | 2020-06-23 04:12 | ED.DCSUM_ITS ---
History of Present Illness Chief Complaint: Abscess Informant: Patient Onset: Yesterday Context: Gradual Onset Timing: Continuous Narrative: Patient is a 40-year-old male denies any past medical history presenting with p ain and redness to his right hand. Patient had what looked like a pimple develop on his right third knuckle last night. He squeezed it and then went to bed. He had a little bit of pain however he woke up with worsening pain and then red streaking up his hand and forearm. He denies associated fever. Is never had any like this before. He denies any known history of cellulitis, abscess or MRSA. No history of IV drug use. No other complaints at this time. Did not take anything for pain prior to arrival. Past Medical History - Allergies and Home Meds Allergies/Adverse Reactions: Allergies No Known Allergies Allergy (Verified 06/23/20 03:08) Past Medical History: None Surgical History: - - Jaw surgery secondary to trauma, right upper extremity surgery, tonsillectomy. Lives: Spouse/ Significant Other Smoking Status: Former smoker - Family History Maternal Family History: Family History (Last Reviewed 10/14/18 @ 09:50 by Ashia Griffin) Father Heart disease Mother Crohn disease A-fib Grandfather Cancer Grandmother Cancer Family History: Reports: Diabetes, Hypertension Paternal Family History: Family History (Last Reviewed 10/14/18 @ 09:50 by Ashia Griffin) Father Heart disease Mother Crohn disease A-fib Grandfather Cancer Grandmother Cancer Family History: Reports: Diabetes, Hypertension Review of Systems General: Denies: Chills, Fever, Sweats Eyes: Denies: Visual changes - bilaterally, Diplopia ENT: Denies: Rhinorrhea, Sore throat Cardiovascular: Denies: Chest pain, Palpitations Respiratory: Denies: Dyspnea, Cough, Dyspnea on exertion Gastrointestinal: Denies: Abdominal pain, Nausea, Vomiting, Diarrhea, Melena, Hematochezia Genitourinary: Denies: Dysuria, Hematuria, Frequency Musculoskeletal: Reports: Extremity Pain - right hand. Denies: Back pain Skin: Reports: Rash - right hnd. Denies: Wounds Neurological: Denies: Headache, Weakness, Numbness Physical Exam Vital Signs/Narrative: Vital Signs Temp Pulse Resp BP Pulse Ox 06/23/20 03:08 97.3 F L 88 16 128/85 H 98 Inital Vital Signs reviewed: Yes General: Well nourished, Well developed, No Acute Distress Head: Normocephalic, Atraumatic Eyes: Perrl, EOMI ENT: Moist mucous membranes Neck: Supple, Nontender Cardiovascular: Regular rate, Regular rhythm, No murmurs Respiratory: No distress, CTA bilaterally Abdomen: Soft, Nontender Extremities: - - Tenderness palpation of the right hand from the third MCP, dorsal aspect and radiating up to the mid forearm. Normal range of motion. No [place] signs. Skin: Normal color, Rash, - - Abrasion over the third right MCP, dorsal aspect. No associated fluctuance appreciated. There is some mild erythema, edema and mild lymphangitic streaking to the proximal forearm that is tender to palpation Neurological: Alert, Oriented x3, Cranial nerves II-XII grossly intact, Normal Strength, Normal Sensation Psychological: Normal affect, Normal Mood Diagnostic/Tx/Re-eval - Medical Decision Making Patient is evaluated for less than 24 hours of redness and pain that spreading up his right hand. He is right-hand dominant. It started when he picked at a pimple. He denies any history of MRSA or cellulitis. I do not appreciate any abscess at this time. Do not think imaging is indicated. There is no crepitus. He has normal range of motion. Patient be placed on Bactrim and Keflex as well as Motrin. He is given first dose in the emergency room. He is counseled on signs of worsening symptoms. At this time I think patient is a candidate for outpatient antibiotic treatment. Patient is counseled on signs and symptoms requiring return to the emergency room. Patient verbalizes agreement and understand this plan. Patient discharged home in stable and improved condition. ED Disposition - Plan for ED Patient: Disposition: Home or Assisted Living Diagnosis: Cellulitis of hand, right Instructions: ED Cellulitis Prescriptions: Smz/Tmp Ds [Bactrim Ds] 1 tab PO BID #14 tab Prescription Printed Cephalexin [Keflex] 500 mg PO [id number] #28 cap Prescription Printed Ibuprofen [Motrin] 600 mg PO Q6H PRN PRN #20 tab PRN Reason: Pain Score 1-10/10 Prescription Printed Additional Instructions: These follow-up with your primary care doctor in 2 days for wound recheck. Apply warm soaks to the knuckle multiple times a day. Try to avoid any strenuous activity and keep the hand clean and dry for the next 24 hours. Return the emergency room with any significantly worsening symptoms or if you not have improvement after 48 hours. Is important that you complete your entire course of antibiotics.
[2020-06-23] MEDS: Ibuprofen 600 MG Tablet PO (04:24)
[2020-06-23] MEDS: Cephalexin 250 MG Capsule 500 MG PO (04:25)
[2020-06-23] MEDS: Smz/Tmp Ds Tablet 1 TABLET PO (04:25)
[2020-06-23 04:27] VITALS: RESP 14
== END 2020-06-23 04:27 | disposition home or self-care (01) ==
PROVIDERS: Emergency Provider Emergency Medicine
DX: L03.113 Cellulitis of right upper limb (principal); S60.511A Abrasion of right hand, initial encounter; X58.XXXA Exposure to other specified factors, initial encounter; Y93.9 Activity, unspecified; Y92.9 Unspecified place or not applicable; Z87.891 Personal history of nicotine dependence
CPT/HCPCS: 99283

== ENCOUNTER 2020-06-24 10:51 | Emergency (ER) | payer MEDICAID, SELFPAY ==
[2020-06-23 03:08] VITALS: BMI 25.3
[2020-06-24 10:52] VITALS: BP 125/83; PULSE 107; RESP 18; TEMP 36.6; O2SAT 97; BMI 23.7
--- NOTE | 2020-06-24 11:13 | ED.VIS.GEN ---
History of Present Illness Chief Complaint: Edema Informant: Patient Onset: Days Current Severity: Mild Narrative: The patient presents with an area of swelling over the right long finger MCP joint he indicates that began as a small pimple that he gets chronically that he basically popped and then he developed an area of thick skin and slight redness to the area he was seen the other day in the emergency department he reports he was started on Keflex and doxycycline told to follow-up he did not follow-up he reports he has been on the antibiotics for about 2 days he reports no improvement and he presents for reevaluation. 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 Smoking Status: Former smoker - Family History Maternal Family History: Family History (Last Reviewed 10/14/18 @ 09:50 by Ashia Griffin) Father Heart disease Mother Crohn disease A-fib Grandfather Cancer Grandmother Cancer Family History: Reports: Diabetes, Hypertension Paternal Family History: Family History (Last Reviewed 10/14/18 @ 09:50 by Ashia Griffin) Father Heart disease Mother Crohn disease A-fib Grandfather Cancer Grandmother Cancer Family History: Reports: Diabetes, Hypertension Review of Systems General: Denies: Chills, Fever, Sweats Eyes: Denies: Visual changes - bilaterally, Diplopia ENT: Denies: Rhinorrhea, Sore throat Cardiovascular: Denies: Chest pain, Palpitations Respiratory: Denies: Dyspnea, Cough, Dyspnea on exertion Gastrointestinal: Denies: Abdominal pain, Nausea, Vomiting, Diarrhea, Melena, Hematochezia Genitourinary: Denies: Dysuria, Hematuria, Frequency Musculoskeletal: Reports: Extremity Pain. Denies: Back pain Skin: Denies: Rash, Wounds Neurological: Denies: Headache, Weakness, Numbness Physical Exam Vital Signs/Narrative: Vital Signs Temp Pulse Resp BP Pulse Ox 06/24/20 10:52 97.8 F 107 H 18 125/83 H 97 General: Well nourished, Well developed, No Acute Distress Head: Normocephalic, Atraumatic Eyes: Perrl, EOMI ENT: Moist mucous membranes, No rhinorrhea Neck: Supple, Nontender Cardiovascular: Regular rate, Regular rhythm, No murmurs Respiratory: No distress, CTA bilaterally, Chest nontender Abdomen: Soft, Nontender, Nondistended, Normal bowel sounds Back: Nontender, Normal Inspection Extremities: - - To the right hand over the right long finger MCP there is a small tiny little scab there is some indurated skin there is no fluctuance, he has full flexion extension at the MCP PIP and DIP joint all digits sensations intact thumb function normal wrist is unremarkable forearm unremarkable he does have a slight streak of redness that extends slightly beyond the wrist his elbow area has full range of motion he indicates he feels if he may have some lymphadenopathy here and if he does it is very subtle full range of motion of the elbow there is no obvious lymphangitic streaking beyond the wrist area he states he has had that for 2 days it is unchanged his right upper extremity, the rest of the extremity exam and the rest the physical exam are unremarkable Skin: Normal color, No rash Neurological: Alert, Oriented x3, Cranial nerves II-XII grossly intact, Normal Strength, Normal Sensation Psychological: Normal affect, Normal Mood Diagnostic/Tx/Re-eval - Medical Decision Making I explained all of the above to the patient I explained the concept of infection induration abscess I&D the need to be managed by hand service I explained there is no currently available hand supervisor special services at this facility to see him today per staff, we discussed transferring him to a tertiary care center in [facility] or any facility of his choice he did not wish to be transferred indicate he had children at home did not wish to be admitted or transferred as he needed to go home and care for his children he did agree to see physicians tomorrow or if he could arrange for childcare management he would go to these facilities later in the day. At this time we have obtain an x-ray of the hand, he will be given IM Rocephin, he will be asked to continue his antibiotics Velcro wrist splint and he understands potential complicated nature of the above and the need to be seen by hand service, in addition he is referred to [facility] hand service Home stable declined transfer Impression final right hand infection ED Disposition - Plan for ED Patient: Diagnosis: Infection of right hand Instructions: ED Wound Check Laceration FU Infec Referrals: Care Physician,No Primary [Primary Care Provider] - Additional Instructions: Please call [facility] hand center at [phone] to see a hand surgeon tomorrow
--- NOTE | 2020-06-24 11:15 | RAD_ITS ---
STUDY: X-RAY - RIGHT HAND REASON FOR EXAM: Male, 40 years old. Patient has redness and swelling to right hand. Put on antibiotics redness now going up forearm. States may have been bitten by something, there is a small scab area of 3rd MIP joint of the right hand. TECHNIQUE: 3 view(s) of the hand. COMPARISON: None. FINDINGS: Normal radiocarpal articulation. Normal distal radioulnar joint. Normal visualized carpal bones. Normal carpal articulations Normal carpometacarpal articulation of the thumb. Normal second through fifth carpometacarpal joints. Normal metacarpi. Normal metacarpophalangeal joint of the thumb. Normal interphalangeal joint of the thumb. Normal proximal and distal phalanges of the thumb. Normal metacarpophalangeal joints of the second through fifth fingers. Normal proximal and distal interphalangeal joints of the second through fifth fingers. Normal phalanges of the second through fifth fingers. Soft tissue swelling. RAD/Hand Min 3 Views IMPRESSION: Soft tissue swelling. Electronically Signed: Nolan Carranza, at 11:30 EDT , Service support ,
--- NOTE | 2020-06-24 11:21 | ED.DCSUM_ITS ---
History of Present Illness Chief Complaint: Edema Informant: Patient Past Medical History - Allergies and Home Meds Allergies/Adverse Reactions: Allergies No Known Allergies Allergy (Verified 06/24/20 10:54) Primary Care Physician: Care Physician,No Primary [Primary Care Provider] - Surgical History: - - Jaw surgery secondary to trauma, right upper extremity surgery, tonsillectomy. Smoking Status: Former smoker - Family History Maternal Family History: Family History (Last Reviewed 10/14/18 @ 09:50 by Ashia Griffin) Father Heart disease Mother Crohn disease A-fib Grandfather Cancer Grandmother Cancer Family History: Reports: Diabetes, Hypertension Paternal Family History: Family History (Last Reviewed 10/14/18 @ 09:50 by Ashia Griffin) Father Heart disease Mother Crohn disease A-fib Grandfather Cancer Grandmother Cancer Family History: Reports: Diabetes, Hypertension Physical Exam Vital Signs/Narrative: Vital Signs Temp Pulse Resp BP Pulse Ox 06/24/20 10:52 97.8 F 107 H 18 125/83 H 97 ED Disposition - Plan for ED Patient: Diagnosis: Infection of right hand Instructions: ED Wound Check Laceration FU Infec Referrals: Care Physician,No Primary [Primary Care Provider] - Additional Instructions: Please call [facility] hand center at [phone] to see a hand surgeon tomorrow
[2020-06-24] MEDS: Ceftriaxone 1 GM Vial IM (11:55)
[2020-06-24 12:20] VITALS: BP 129/78; PULSE 72; RESP 20; O2SAT 98
--- NOTE | 2020-06-24 12:22 | ED.RN ---
THIS NURSE REVIEWED D/C INSTRUCTIONS WITH PT. PT VERBALIZED UNDERSTANDING OF INSTRUCTIONS. PT DENIES FURTHER NEEDS OR QUESTIONS AT THIS TIME. PT AMBULATES FROM ROOM ON OWN WITHOUT ASSISTANCE FROM STAFF
== END 2020-06-24 12:24 | disposition home or self-care (01) ==
PROVIDERS: Emergency Provider Emergency Medicine
DX: L08.9 Local infection of the skin and subcutaneous tissue, unspecified (principal); Z87.891 Personal history of nicotine dependence
CPT/HCPCS: 73130; 99282

== ENCOUNTER 2021-07-10 05:27 | Emergency (ER) | payer MEDICAID, SELFPAY ==
[2021-07-10 05:28] VITALS: BP 132/79; PULSE 91; RESP 30; TEMP 36.7; O2SAT 96; BMI 29.0
[2021-07-10 05:35] VITALS: BP 132/79; PULSE 91; RESP 30; TEMP 36.7; O2SAT 96
--- NOTE | 2021-07-10 05:56 | RAD_ITS ---
STUDY: X-RAY CHEST REASON FOR EXAM: Male, 41 years old. Cough TECHNIQUE: Portable, upright, AP chest radiograph COMPARISON: 08/11/2018 FINDINGS: The lungs are clear and expanded. There is no demonstrated pleural abnormality. Normal size heart. Normal mediastinum and nicholas. Normal visualized pulmonary arteries. Normal visualized aortic arch and descending thoracic aorta. Normal visualized thoracic spine. Normal visualized ribs, clavicles, and shoulders. There is no demonstrated abnormality of the visualized soft tissue structures of the upper abdomen. RAD/Chest 1 View (Portable) IMPRESSION: No acute abnormal cardiopulmonary finding. Electronically Signed: Adan Yousif MD at 6:44 EDT Tel , Service support ,
--- NOTE | 2021-07-10 06:18 | EX.ED.DYSGE1 ---
HPI History of Present Illness Chief Complaint: General Illness Narrative Narrative: Patient is a 41-year-old male with no significant past medical history. 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 He states he developed subjective fevers with nasal congestion and back pain. He states that he has no known sick contacts and is not vaccinated for Covid. He denies any vomiting diarrhea dysuria. He denies any cough or shortness of breath or chest pain. He states however as his constellation of symptoms seem to be worsening and he is concerned for Covid he presents for evaluation [facility] Medical History (Updated 07/10/21 @ 07:[address] Adriel Juan, DO) Night sweats Home Medications dexamethasone [Decadron] 6 mg PO DAILY #10 tab 07/10/21 [Rx Last Taken Unknown] Allergy/AdvReac Type Severity Reaction Status Date / Time No Known Allergies Allergy Verified 07/10/21 05:34 Family History Father Heart disease Mother Crohn disease A-fib Grandfather Cancer Grandmother Cancer Surgical History H/O adenoidectomy H/O foot surgery H/O hand surgery History of mandibular surgery History of tonsillectomy Social History Smoking Status: Former smoker Tobacco: How many years used: 20 second hand exposure: Yes alcohol intake: never substance use type: marijuana ROS ROS ED Constitutional Constitutional ED: Reports fever(s); Denies chills ENT ENT ED: Reports rhinorrhea; Denies sore throat Cardiovascular Cardiovascular: Denies chest pain Respiratory/Chest Respiratory/Chest: Denies cough or dyspnea Gastrointestinal Gastrointestinal: Denies abdominal pain, diarrhea, nausea or vomiting Genitourinary Genitourinary ED: Denies dysuria Musculoskeletal Musculoskeletal: Reports myalgias Integumentary Denies rash Neurologic Neurologic: Denies headache(s) Hematologic/Lymphatic Hematologic/Lymphatic: Denies easy bleeding or easy bruising EXAM Physical Exam Const Vital Signs: 07/10/21 05:28 07/10/21 05:35 07/10/21 06:32 Temperature 98.0 F 98.0 F 98.0 F Temperature Source Temporal Temporal Temporal Pulse Rate 91 91 91 Respiratory Rate 30 H 30 H 30 H Respiratory Effort Normal Non-Labored Respiratory Pattern Tachypnea Blood Pressure 132/79 H 132/79 H 132/79 H Blood Pressure Mean 96 96 96 Pulse Ox 96 96 96 Oxygen Delivery Method Room Air Room Air Room Air Positive well nourished and well developed General Appearance ED: well developed HEENT Reports moist mucous membranes HEENT Narrative: Nasal mucosa is hyperemic and boggy with enlarged inferior nasal turbinates. Cobblestoning the posterior pharynx consistent with sinus drainage but no airway edema or compromise Eyes PERRL and EOMs intact bilaterally Neck supple Neck Narrative: Positive anterior cervical lymphadenopathy noted. No meningeal signs Resp normal respiratory effort and clear to auscultation bilaterally Cardio regular rate and regular rhythm GI normal to inspection, nondistended, normoactive bowel sounds, non-tender and non-distended Auscultation: normoactive bowel sounds Palpation: soft Back/Spine no CVA tenderness Extremity normal to inspection Neuro oriented x3 and CN's II-XII intact bilaterally Sensorium / Orientation: alert Motor Exam: strength 5/5 throughout Psych mental status grossly normal Skin no rashes or lesions noted MDM MDM MDM Narrative Medical decision making narrative: Patient presented to the ER afebrile and in no acute respiratory distress. His constellation of symptoms is concerning for Covid. Therefore basic labs and a Covid swab are obtained. Basic labs and chest x-ray revealed no acute findings. However his Covid swab was positive consistent with his exam and history. At this time he has no signs of respiratory distress and does not need placed in the hospital and therefore be discharged home with symptomatic care Lab Data Labs: Laboratory Results - last 24 hr 07/10/21 07/10/21 06:10 06:10 WBC 7.2 RBC 5.06 Hgb 14.7 Hct 43.5 MCV 86.0 MCH 29.1 MCHC 33.8 RDW Std Deviation 39.5 RDW Coeff of Kaylen 12.7 Plt Count 187 MPV 10.1 Immature Gran % (Auto) 0.600 Neut % (Auto) 70.5 H Lymph % (Auto) 12.0 L [place] % (Auto) 15.7 H Eos % (Auto) 0.8 Baso % (Auto) 0.4 Absolute Neuts (auto) 5.1 Absolute Lymphs (auto) 0.87 Nucleated RBC % 0 Sodium 138 Potassium 3.5 Chloride 106 Carbon Dioxide 26.0 Anion Gap 6 BUN 13 Creatinine 1.04 Estim Creat Clear Calc 111.72 Est GFR (MDRD) Af Amer 101 Est GFR (MDRD) Non-Af 83 BUN/Creatinine Ratio 12.5 Glucose 102 Calcium 8.9 Total Creatine Kinase 176 Radiography Diagnostic Testing: Radiology Impression Chest X-Ray 07/10/21 05:56 IMPRESSION: No acute abnormal cardiopulmonary finding. Electronically Signed: Adan Yousif MD at 6:44 EDT Tel , Service support , Discharge Plan Triage Chief Complaint: General Illness ED Provider: Adriel Juan Dx/Rx/DC Orders Clinical Impression: COVID-19 Instructions: Coronavirus Disease 2019 (COVID-19): Caring for Yourself or Others Prescriptions: New dexamethasone [Decadron] 6 mg tablet 6 mg PO DAILY Qty: 10 RF: 0 Primary Care Provider: Care Physician,No Primary Referrals: Care Physician,No Primary [Primary Care Provider] - Disposition Disposition: Home, Self Care
[2021-07-10 06:27] LABS: Absolute Lymphocyte Count 0.87 X10^3/uL (0.83-4.51); Absolute Neutrophil Count 5.1 X10^3/uL (2.0-7.7); Basophil# 0.03 X10^3/uL; Basophil% 0.4 % (0-1); Eosinophil# 0.06 X10^3/uL; Eosinophils% 0.8 % (0-5); Hematocrit 43.5 % (40-54); Hemoglobin 14.7 g/dL (13.0-16.5); Lymphocyte # 0.87 X10^3/ul (0.83-4.51); Mean Corp Hgb Conc 33.8 g/dL (32-36); Mean Corpuscular Hgb 29.1 pg (27.0-32.0); Mean Platelet Vol. 10.1 fl (6.2-12.0); Monocyte# 1.13 X10^3/uL; Monocyte% 15.7 % (0-10); NRBC Flagged by Analyzer 0 % (0-5); Neutrophil # 5.09 X10^3/uL (2.7-7.7); Neutrophil % 70.5 % (47-70); Platelet Count 187 K/mm3 (150-450); RBC Distribution Width CV 12.7 % (11.6-14.6); RBC Distribution Width SD 39.5 fl (35.1-43.9); Red Blood Count 5.06 M/mm3 (4.6-6.2); White Blood Count 7.2 K/mm3 (4.4-11.0)
[2021-07-10] MEDS: Orphenadrine 60 MG/2 ML Ampul IV (06:31)
[2021-07-10] MEDS: 0.9% Normal Saline 1,000 ML 999 ML IV (06:31)
[2021-07-10] MEDS: dexAMETHasone 10 MG/ML Vial IV (06:31)
[2021-07-10] MEDS: Ketorolac 30 MG/ML Syringe IV (06:31)
[2021-07-10 06:32] VITALS: BP 132/79; PULSE 91; RESP 30; TEMP 36.7; O2SAT 96
[2021-07-10 06:40] LABS: Anion Gap 6 (5-15); BUN 13 mg/dL (7-18); BUN/Creat Ratio 12.5 RATIO (10-20); CPK Total, Creatine Kinase 176 U/L (39-308); Calcium,Total 8.9 mg/dL (8.5-10.1); Chloride 106 mmol/L (98-107); Creatinine, Serum 1.04 mg/dL (0.70-1.30); EST Glomerular Filtration Rate 83 mL/min (>60); Est Glom Filt Rate - Afr Amer 101 mL/min (>60); Estimated Creatinine Clearance 111.72 ml/min; Glucose 102 mg/dL (74-106); Potassium 3.5 mmol/L (3.5-5.1); Sodium Level 138 mmol/L (136-145)
[2021-07-10 07:28] VITALS: BP 117/71; PULSE 76; RESP 16; O2SAT 97
== END 2021-07-10 07:31 | disposition home or self-care (01) ==
PROVIDERS: Emergency Provider Emergency Medicine
DX: U07.1 COVID-19 (principal); Z87.891 Personal history of nicotine dependence
CPT/HCPCS: 71045; 80048; 82550; 85025; 87426; 96361; 96374; 96375; 99282; J7030; A4216

== ENCOUNTER 2021-07-11 07:53 | Emergency (ER) | payer MEDICAID, SELFPAY ==
[2021-07-11 07:54] VITALS: BP 124/80; PULSE 79; RESP 18; TEMP 36.4; O2SAT 95; BMI 25.0
--- NOTE | 2021-07-11 08:06 | EDS_ITS ---
HPI History of Present Illness Chief Complaint: Wound Check Informant: patient Onset/Context/Timing Onset: Yesterday Current Severity: Mild Maximum Severity: Mild Narrative Narrative: And was diagnosed with Covid. He had an IV attempted in the right AC and ultimately got an IV started in the left. Patient states that the nurse told him he would likely have a large bruise on the right arm. He has no bruise around the puncture site, but does have a swollen area in the mid forearm that were concerned him. He states he has some tingling in his fingers. PFSH PFSH Medical History COVID-19 Night sweats Home Medications dexamethasone [Decadron] 6 mg PO DAILY #10 tab 07/10/21 [Rx Last Taken Unknown] Allergy/AdvReac Type Severity Reaction Status Date / Time No Known Allergies Allergy Verified 07/11/21 07:56 Family History Father Heart disease Mother Crohn disease A-fib Grandfather Cancer Grandmother Cancer Surgical History H/O adenoidectomy H/O foot surgery H/O hand surgery History of mandibular surgery History of tonsillectomy Social History Smoking Status: Former smoker Tobacco: How many years used: 20 second hand exposure: Yes alcohol intake: never substance use type: marijuana ROS ROS ED Constitutional Constitutional ED: Denies chills or fever(s) Eyes Eyes: Denies change in vision ENT ENT ED: Denies sore throat Cardiovascular Cardiovascular: Denies chest pain Respiratory/Chest Respiratory/Chest: Denies cough or dyspnea Gastrointestinal Gastrointestinal: Denies abdominal pain, diarrhea, nausea or vomiting Genitourinary Genitourinary ED: Denies dysuria Musculoskeletal Musculoskeletal: Reports myalgias; Denies back pain Integumentary Denies rash Neurologic Neurologic: Reports headache(s) and paresthesias; Denies weakness Psychiatric Psychiatric: Denies anxiety or depression Allergic/Immunologic Allergic/Immunologic ED: Denies urticaria EXAM Physical Exam Const Vital Signs: 07/11/21 07:54 Temperature 97.6 F L Temperature Source Temporal Pulse Rate 79 Respiratory Rate 18 Blood Pressure 124/80 H Blood Pressure Mean 94 Pulse Ox 95 Oxygen Delivery Method Room Air Positive well nourished and well developed General Appearance ED: well developed HEENT Reports normocephalic and head/scalp atraumatic Eyes PERRL and EOMs intact bilaterally Neck supple Chest Wall inspection of chest normal and palpation of chest normal Resp normal respiratory effort and clear to auscultation bilaterally Cardio regular rate and regular rhythm GI normal to inspection, nondistended, normoactive bowel sounds Palpation: soft Extremity Extremity Narrative: Puncture site at right AC without surrounding erythema or tenderness. Small focal area of swelling in the medial right forearm. My suspicion is this is a deep hematoma from his prior puncture site. No sign of thrombophlebitis or DVT at this time. Neuro oriented x3 Sensorium / Orientation: alert Motor Exam: strength 5/5 throughout Psych mental status grossly normal MDM [facility] Treatment and Re-Evaluation Comments:: Patient advised to elevate his arm and apply ice. I believe this is likely a deep hematoma causing pressure on the nerves. I do not believe this represents a DVT. Treatment plan and follow-up discussed with patient. Discharge Plan Triage Chief Complaint: Wound Check ED Provider: Sheila Arauz Dx/Rx/DC Orders Clinical Impression: Hematoma Instructions: ED Hematoma Prescriptions: No Action dexamethasone [Decadron] 6 mg tablet 6 mg PO DAILY Qty: 10 RF: 0 Primary Care Provider: Care Physician,No Primary Referrals: Chris Coffey MD [STAFF PHYSICIAN] - As Needed Care Physician,No Primary [Primary Care Provider] - Disposition Disposition: Home, Self Care
== END 2021-07-11 08:27 | disposition home or self-care (01) ==
LOC: ED 08:19
PROVIDERS: Emergency Provider Emergency Medicine
DX: S40.021A Contusion of right upper arm, initial encounter (principal); Y84.8 Other medical procedures as the cause of abnormal reaction of the patient, or of later complication, without mention of misadventure at the time of the procedure; Z86.16 Personal history of COVID-19; Z87.891 Personal history of nicotine dependence
CPT/HCPCS: 99282

== ENCOUNTER 2021-07-17 09:37 | Emergency (ER) | payer MEDICAID, SELFPAY ==
[2021-07-17 09:38] VITALS: BP 128/90; PULSE 116; RESP 16; TEMP 37.2; O2SAT 95; BMI 28.0
--- NOTE | 2021-07-17 10:29 | EX.ED.DYSGE1 ---
HPI History of Present Illness Chief Complaint: Headache Informant: patient Onset/Context/Timing Onset: Today Narrative Narrative: Patient is currently on day 8 of Covid symptoms and diagnosis. Patient states he has been feeling pretty well. He woke this morning with body aches, low back pain, headache, sinus pressure and drainage. No fever or chills. [facility] Medical History COVID-19 Night sweats Home Medications dexamethasone [Decadron] 6 mg PO DAILY #10 tab 07/10/21 [Rx Last Taken Unknown] Allergy/AdvReac Type Severity Reaction Status Date / Time No Known Allergies Allergy Verified 07/11/21 07:56 Family History Father Heart disease Mother Crohn disease A-fib Grandfather Cancer Grandmother Cancer Surgical History H/O adenoidectomy H/O foot surgery H/O hand surgery History of mandibular surgery History of tonsillectomy Social History Smoking Status: Former smoker Tobacco: How many years used: 20 second hand exposure: Yes alcohol intake: never substance use type: marijuana ROS ROS ED Constitutional Constitutional ED: Denies chills or fever(s) Eyes Eyes: Denies change in vision ENT ENT ED: Reports other Details: Sinus pressure and drainage ; Denies sore throat Cardiovascular Cardiovascular: Denies chest pain Respiratory/Chest Respiratory/Chest: Denies cough or dyspnea Gastrointestinal Gastrointestinal: Reports nausea; Denies abdominal pain, diarrhea or vomiting Genitourinary Genitourinary ED: Denies dysuria Musculoskeletal Musculoskeletal: Reports back pain and myalgias Integumentary Denies rash Neurologic Neurologic: Reports headache(s); Denies weakness Allergic/Immunologic Allergic/Immunologic ED: Denies urticaria EXAM Physical Exam Const Vital Signs: 07/17/21 09:38 Temperature 99.0 F Temperature Source Oral Pulse Rate 116 H Respiratory Rate 16 Blood Pressure 128/90 H Blood Pressure Mean 102 Pulse Ox 95 Oxygen Delivery Method Room Air Positive well nourished and well developed General Appearance ED: well developed HEENT Reports normocephalic and head/scalp atraumatic Eyes PERRL and EOMs intact bilaterally Neck supple Chest Wall inspection of chest normal and palpation of chest normal Resp normal respiratory effort and clear to auscultation bilaterally Cardio regular rate and regular rhythm GI normal to inspection, nondistended, normoactive bowel sounds Palpation: soft Extremity normal to inspection Neuro oriented x3 and no sensory deficits noted Sensorium / Orientation: alert Motor Exam: strength 5/5 throughout Psych mental status grossly normal Skin no rashes or lesions noted MDM MDM MDM Narrative Medical decision making narrative: Patient is given Toradol, Reglan, Benadryl, 500 cc IV fluids. Treatment and Re-Evaluation Comments:: Repeat evaluation patient feels much improved. Headache is significantly improved. He will be discharged home with continued supportive care. Discharge Plan Triage Chief Complaint: Headache ED Provider: Sheila Arauz Dx/Rx/DC Orders Clinical Impression: Migraine Instructions: ED, Migraine (Classical) Prescriptions: No Action dexamethasone [Decadron] 6 mg tablet 6 mg PO DAILY Qty: 10 RF: 0 Primary Care Provider: Care Physician,No Primary Referrals: Meagan Hernández MD [STAFF PHYSICIAN] - As Needed Care Physician,No Primary [Primary Care Provider] - Disposition Disposition: Home, Self Care
[2021-07-17] MEDS: DiphenhydrAMINE 50 MG/ML Syringe 25 MG IV (11:03)
[2021-07-17] MEDS: Ketorolac 30 MG/ML Syringe IV (11:05)
[2021-07-17] MEDS: Metoclopramide 10 MG/2 ML Vial IV (11:06)
== END 2021-07-17 13:01 | disposition home or self-care (01) ==
PROVIDERS: Emergency Provider Emergency Medicine
DX: G43.909 Migraine, unspecified, not intractable, without status migrainosus (principal); U07.1 COVID-19; Z87.891 Personal history of nicotine dependence
CPT/HCPCS: 96361; 96374; 96375; 99283; J7030; A4216

== ENCOUNTER 2021-07-19 00:24 | Emergency (ER) | payer MEDICAID, SELFPAY ==
[2021-07-19 00:27] VITALS: BP 147/83; PULSE 104; RESP 18; TEMP 38.3; O2SAT 88; BMI 28.0
[2021-07-19 00:33] VITALS: O2SAT 88
--- NOTE | 2021-07-19 00:34 | RAD_ITS ---
STUDY: X-RAY CHEST REASON FOR EXAM: Male, 41 years old. covid TECHNIQUE: Single AP portable view of the chest. COMPARISON: 07/10/2021. FINDINGS: New patchy bilateral perihilar opacities compatible with bilateral pneumonia. There is no demonstrated pleural abnormality. Normal size heart. Normal mediastinum and nicholas. Normal visualized pulmonary arteries. Normal visualized aortic arch and descending thoracic aorta. Normal visualized thoracic spine. Normal visualized ribs, clavicles, and shoulders. There is no demonstrated abnormality of the visualized soft tissue structures of the upper abdomen. RAD/Chest 1 View (Portable) IMPRESSION: Bilateral perihilar multifocal pneumonia. Electronically Signed: Fina Lau MD at 1:17 EDT , Service support ,
--- NOTE | 2021-07-19 00:34 | EX.ED.VIS.UR ---
HPI HPI - URI History of Present Illness Chief Complaint: Shortness of Breath Informant: patient Onset/Context/Timing Onset: Days Context: Gradual Onset Timing: Continuous Current Severity: Mild Maximum Severity: Mild Associated Symptoms Associated Symptoms: Positive for Nasal Congestion, Headache, Myalgias, Shortness of Breath and Productive Cough Narrative Narrative: 41-year-old male no past medical history. Diagnosed with Covid 8 days ago symptoms started 9 days ago. He is on Decadron has been on it for over a week and has several days left. Has had a lot of viral symptoms but states now he started to have shortness of breath. Denies any hemoptysis. Still having intermittent fevers. Denies any vomiting or diarrhea currently. He is unvaccinated. Prior similar symptoms: Yes Recent Illness/Hospitalization: No ROS ROS ED ROS Narrative Viral URI symptoms with fever and cough. Review of Systems ROS Unobtainable: Denies due to encephalopathy Constitutional Constitutional ED: Reports chills and fever(s) Eyes Eyes: Denies change in vision ENT ENT ED: Denies ear pain or sore throat Cardiovascular Cardiovascular: Denies chest pain Respiratory/Chest Respiratory/Chest: Reports cough, dyspnea and sputum Gastrointestinal Gastrointestinal: Denies abdominal pain, diarrhea, nausea or vomiting Genitourinary Genitourinary ED: Denies dysuria Musculoskeletal Musculoskeletal: Reports myalgias Integumentary Denies rash Neurologic Neurologic: Reports headache(s) Psychiatric Psychiatric: Denies depression Endocrine Endocrinology: Denies polyuria Hematologic/Lymphatic Hematologic/Lymphatic: Denies easy bruising Allergic/Immunologic Allergic/Immunologic ED: Denies urticaria PFSH PFSH Medical History COVID-19 Night sweats Home Medications dexamethasone [Decadron] 6 mg PO DAILY #10 tab 07/10/21 [Rx Last Taken Unknown] ondansetron 4 mg PO Q6H PRN #10 tab 07/19/21 [Rx Last Taken Unknown] Allergy/AdvReac Type Severity Reaction Status Date / Time No Known Allergies Allergy Verified 07/11/21 07:56 Family History Father Heart disease Mother Crohn disease A-fib Grandfather Cancer Grandmother Cancer Surgical History H/O adenoidectomy H/O foot surgery H/O hand surgery History of mandibular surgery History of tonsillectomy Social History Smoking Status: Former smoker Tobacco: How many years used: 20 second hand exposure: Yes alcohol intake: never substance use type: marijuana EXAM Physical Exam Narrative Exam Narrative: Middle-age male no acute distress. Vital signs are stable he does have a low-grade temperature 100.9. He is also mildly hypoxic at 88. He is in no distress. H EENT exam unremarkable. Moist his membranes. Neck nontender no JVD. No meningismus. Lungs clear to auscultation bilaterally. Heart regular rhythm rate about 100 no murmur. Abdomen soft nontender normal bowel sounds no peritoneal signs. Patient moving all 4 extremities. Calves are nontender without edema or cords. Back nontender. Skin unremarkable. Neurologically awake alert no focal motor deficits. Const Vital Signs: 07/19/21 00:27 Temperature 100.9 F H Temperature Source Temporal Pulse Rate 104 H Respiratory Rate 18 Blood Pressure 147/83 H Blood Pressure Mean 104 Pulse Ox 88 Oxygen Delivery Method Room Air Positive well nourished and well developed; Negative for obese, cachectic or contractures General Appearance ED: well developed and NAD; Negative for cachectic, contractures, diaphoretic or pallor Nutritional Appearance: Negative for cachectic or obese HEENT Reports moist mucous membranes normocephalic and atraumatic; Negative for scalp tenderness Face and Sinus: Negative for sinus tenderness External Ear: external ears normal Eyes PERRL and EOMs intact bilaterally Neck no lymphadenopathy, supple, no meningeal signs and no JVD General: Negative for anterior neck swelling Resp normal respiratory effort and clear to auscultation bilaterally Auscultation: Negative for rales, rhonchi or wheezes Cardio S1 normal heart sound, S2 normal heart sound and no murmurs Rate: regular rate Rhythm: regular rhythm GI non-tender, non-distended and no masses Inspection: Negative for abdominal distention Auscultation: normoactive bowel sounds Palpation: soft; Negative for tender or guarding Back/Spine no CVA tenderness and normal ROM General Back: Negative for CVA tenderness Cervical Spine: Negative for cervical spine tenderness Extremity normal to inspection and full ROM General Extremety ED: Negative for cyanosis or tenderness General Extremity: Negative for cyanosis Neuro oriented x3 Sensorium / Orientation: alert, oriented to person, oriented to place and oriented to time; Negative for orientation impaired, lethargic or stuporous Motor Exam: strength 5/5 throughout Psych mental status grossly normal Skin General Skin Exam: Negative for jaundice or pallor Lesions: no lesions Rashes: no rashes and No rashes noted MDM MDM MDM Narrative Medical decision making narrative: Gentleman with Covid on Dexadron. Mild hypoxia at 88. Chest x-ray being obtained. He will be discharged home on home oxygen if you get that set up.Worse on his prior chest x-ray. Repeat exam no significant change. Patient be discharged home with Zofran for nausea. Continue on his Decadron. MR get him set up for home oxygen. He knows to return if he is feeling worse. Radiography Diagnostic Testing: Radiology Impression Chest X-Ray 07/19/21 00:34 IMPRESSION: Bilateral perihilar multifocal pneumonia. Electronically Signed: Fina Lau MD at 1:17 EDT , Service support , Chest x-ray portable 1 view interpreted by myself Insistent with Covid pneumonitis with bilateral infiltrates. Discharge Plan Triage Chief Complaint: Shortness of Breath ED Provider: Hernesto Jaime Dx/Rx/DC Orders Clinical Impression: COVID-19 Instructions: Human Coronaviruses Prescriptions: New ondansetron 4 mg tablet,disintegrating 4 mg PO Q6H PRN (Reason: nausea and vomiting) Qty: 10 RF: 0 No Action dexamethasone [Decadron] 6 mg tablet 6 mg PO DAILY Qty: 10 RF: 0 Primary Care Provider: Care Physician,No Primary Referrals: Chris Coffey MD [STAFF PHYSICIAN] - 1 Week Care Physician,No Primary [Primary Care Provider] - Activity Restrictions/Additional Instructions: Continue and finish your prescription of your Decadron. Zofran as needed for nausea. You may swallowed or let dissolve underneath your tongue it works either way. Plenty of fluids and rest. Tylenol for the fever. Use the oxygen at home all the time. 2 to 3 L for your shortness of breath. If you are feeling a lot worse return but this time there is nothing different in the hospital they may do. Disposition Disposition: Home, Self Care
[2021-07-19 01:40] VITALS: BP 127/77
[2021-07-19] MEDS: Acetaminophen 500 MG Tablet 1000 MG PO (01:40)
[2021-07-19] MEDS: Ondansetron ODT 4 MG Tablet 8 MG PO (01:40)
== END 2021-07-19 02:18 | disposition home or self-care (01) ==
PROVIDERS: Emergency Provider Emergency Medicine
DX: U07.1 COVID-19 (principal); Z87.891 Personal history of nicotine dependence
CPT/HCPCS: 71045; 99285

== ENCOUNTER 2021-07-20 06:18 | Inpatient (IN) | payer MEDICAID, SELFPAY ==
[2021-07-20] VITALS (20 sets, daily range): BP systolic 109–132; BP diastolic 56–88; PULSE 63–96; RESP 18–34; TEMP 35.4–39.5; O2SAT 92–98; BMI 28.1; BMI 27.7
--- NOTE | 2021-07-20 06:32 | EKG12_ITS ---
Test Reason : GEN ILLNESS Blood Pressure : / mmHG Vent. Rate : 086 BPM Atrial Rate : 086 BPM P-R Int : 152 ms QRS Dur : 094 ms QT Int : 350 ms P-R-T Axes : 050 016 009 degrees QTc Int : 418 ms Normal sinus rhythm Normal ECG Confirmed by IKER OGDEN, SILVER ([id number]), sports editor JAHAIRA MEYERS ([id number]) on 07/21/2021 1:46:53 PM Referred By: MARY Confirmed By:SILVER DONG MD
--- NOTE | 2021-07-20 06:32 | CT_ITS ---
STUDY: CTA CHEST REASON FOR EXAM: Male, 41 years old. SOB, CP -- Patient short of breath, chest pain and Covid, RADIATION DOSAGE (If Supplied By Facility): CTDIvol = ( 12.16 ) mGy, DLP = ( 514.61 ) mGycm TECHNIQUE: The examination was performed with the intravenous administration of IV 100mL Isovue-370. Post-processing of the angiographic images was performed, with multiplanar reformation and 3D reconstruction. Individualized dose optimization techniques were used for this CT. COMPARISON: None. FINDINGS: There are multifocal bilateral groundglass and airspace opacities predominantly in a peripheral distribution and more pronounced in the lung bases. There are no pleural effusions. There is no pneumothorax. The heart and pericardium are within normal limits. There is no pulmonary embolus. There is no thoracic aortic aneurysm or dissection. There is no thoracic lymphadenopathy. Images through the upper abdomen demonstrate no significant abnormality. There are no destructive osseous lesions. CT/CTA Chest W/WO Contrast IMPRESSION: Multifocal bilateral groundglass and airspace opacities, consistent with COVID pneumonia. No pulmonary embolus. No thoracic aortic aneurysm or dissection. Electronically Signed: Roberto Curiel MD at 8:01 EDT Tel , Service support ,
--- NOTE | 2021-07-20 06:34 | EDS_ITS ---
HPI History of Present Illness Chief Complaint: General Illness Informant: patient Narrative Narrative: Patient presents with worsening dyspnea and decreasing saturations at home. He is on the start of day 10 of symptoms and day 9 of diagnosis of COVID- 19. He is generally healthy individual. He did complete dexamethasone course. He has been on home oxygen. He was at first on 2 L. His oxygen levels decreased so he was increased to 4 L. He states even on that he is dropped his sats a couple times even into the 70s. He states he feels more rattling in the chest. He also states he is having some sharp discomfort in the chest that is worse with a deep breath. He has no history of travel, surgery, immobilization, personal or family history of DVT or PE. He has no leg swelling or pain. He coughs up some grayish sputum but and has never coughed up blood. He has significant tiredness. However he did not lose his taste and smell. He has occasional nausea but generally is eating and drinking well. He has never had vomiting. He has had slight myalgias. He mostly has had fatigue. He was not immunized. [facility] Medical History COVID-19 Night sweats Home Medications dexamethasone [Decadron] 6 mg PO DAILY #10 tab 07/10/21 [Rx Last Taken Unknown] ondansetron 4 mg PO Q6H PRN #10 tab 07/19/21 [Rx Last Taken Unknown] Allergy/AdvReac Type Severity Reaction Status Date / Time No Known Allergies Allergy Verified 07/11/21 07:56 Family History Father Heart disease Mother Crohn disease A-fib Grandfather Cancer Grandmother Cancer Surgical History H/O adenoidectomy H/O foot surgery H/O hand surgery History of mandibular surgery History of tonsillectomy Social History Smoking Status: Former smoker Tobacco: How many years used: 20 second hand exposure: Yes alcohol intake: never substance use type: marijuana ROS ROS ED Constitutional Constitutional ED: Reports fever(s) Eyes Eyes: Denies blurry vision ENT ENT ED: Reports rhinorrhea; Denies sore throat Cardiovascular Cardiovascular: Reports chest pain Respiratory/Chest Respiratory/Chest: Reports cough, dyspnea and sputum Gastrointestinal Gastrointestinal: Reports nausea; Denies abdominal pain, diarrhea, melena or vomiting Genitourinary Genitourinary ED: Denies dysuria or hematuria Musculoskeletal Musculoskeletal: Denies myalgias Integumentary Denies rash Neurologic Neurologic: Denies headache(s) Endocrine Endocrinology: Denies polydipsia or polyuria Allergic/Immunologic Allergic/Immunologic ED: Denies urticaria EXAM Physical Exam Const Vital Signs: 07/20/21 06:21 07/20/21 06:25 07/20/21 06:27 Temperature 100.2 F H 100.1 F H Temperature Source Temporal Oral Pulse Rate 81 80 Respiratory Rate 33 H 33 H Respiratory Effort Short of Breath Blood Pressure 128/71 H 128/71 H Blood Pressure Mean 90 90 Pulse Ox 92 93 Oxygen Delivery Method Nasal Cannula Nasal Cannula Oxygen Flow Rate (L/min) 6 6 Positive well nourished and well developed Constitutional Narrative: Patient does have an increased respiratory rate and looks somewhat dyspneic. His saturations are 94% on 6 L. General Appearance ED: well developed HEENT Negative for trauma or tenderness Eyes General Eye ED: Negative for pale conjunctiva or scleral icterus Neck no JVD Chest Wall palpation of chest normal Resp Resp Narrative: Increased respiratory effort and rate. He does have some mild diffuse rhonchi more at the bases. Slight wheeze was heard more on the left. I turned his oxygen level down to 4 L. While sitting in the bed he stabilized at about 91% sat. I did not walk him with this level of oxygenation. Cardio regular rate, regular rhythm and no murmurs GI normal to inspection, nondistended, normoactive bowel sounds and non-tender Palpation: soft Back/Spine no CVA tenderness Extremity normal to inspection General Extremety ED: Negative for edema or tenderness General Extremity: Negative for edema Neuro Sensorium / Orientation: alert Psych mental status grossly normal Skin no rashes or lesions noted Discharge Plan Triage Chief Complaint: General Illness ED Provider: Owen Nolen Dx/Rx/DC Orders Prescriptions: No Action dexamethasone [Decadron] 6 mg tablet 6 mg PO DAILY Qty: 10 RF: 0 ondansetron 4 mg tablet,disintegrating 4 mg PO Q6H PRN (Reason: nausea and vomiting) Qty: 10 RF: 0 Primary Care Provider: Care Physician,No Primary
[2021-07-20] MEDS: Ipratropium/Albuterol Sulfate 3 ML AMPUL.NEB INHALATION (06:45)
[2021-07-20] MEDS: Acetaminophen 500 MG Tablet 1000 MG PO (06:45)
[2021-07-20 07:05] LABS: Absolute Lymphocyte Count 1.07 X10^3/uL (0.83-4.51); Absolute Neutrophil Count 16.1 X10^3/uL (2.0-7.7); Basophil# 0.02 X10^3/uL; Basophil% 0.1 % (0-1); Hematocrit 42.9 % (40-54); Hemoglobin 14.7 g/dL (13.0-16.5); Lymphocyte # 1.07 X10^3/ul (0.83-4.51); Lymphocyte % 5.9 % (19-41); Mean Corp Hgb Conc 34.3 g/dL (32-36); Mean Corpuscular Hgb 29.1 pg (27.0-32.0); Mean Platelet Vol. 9.9 fl (6.2-12.0); Monocyte# 0.83 X10^3/uL; Monocyte% 4.6 % (0-10); NRBC Flagged by Analyzer 0 % (0-5); Neutrophil # 16.08 X10^3/uL (2.7-7.7); Neutrophil % 88.7 % (47-70); Platelet Count 174 K/mm3 (150-450); RBC Distribution Width CV 12.2 % (11.6-14.6); RBC Distribution Width SD 37.7 fl (35.1-43.9); Red Blood Count 5.05 M/mm3 (4.6-6.2); White Blood Count 18.1 K/mm3 (4.4-11.0)
[2021-07-20 07:28] LABS: Lactic Acid 1.4 mmol/L (0.4-1.9)
[2021-07-20 07:45] LABS: ALB/GLOB Ratio 0.6 RATIO (0.9-2.4); AST(SGOT) 29 U/L (15-37); Alanine Aminotransfer ALT/SGPT 34 U/L (16-61); Albumin, Serum 2.7 g/dL (3.2-5.0); Alkaline Phosphatase 41 U/L (45-117); Anion Gap 6 (5-15); BUN 15 mg/dL (7-18); BUN/Creat Ratio 16.7 RATIO (10-20); Calcium,Total 8.7 mg/dL (8.5-10.1); Chloride 107 mmol/L (98-107); EST Glomerular Filtration Rate 99 mL/min (>60); Est Glom Filt Rate - Afr Amer 120 mL/min (>60); Globulin 4.6 g/dL (2.2-4.2); Glucose 118 mg/dL (74-106); Potassium 3.7 mmol/L (3.5-5.1); Protein, Total 7.3 g/dL (6.4-8.2); Sodium Level 138 mmol/L (136-145); Troponin-I HS 4 pg/mL (3.0-78.0)
--- NOTE | 2021-07-20 08:39 | NURSING ---
DR JOSHUA WELLS
--- NOTE | 2021-07-20 08:47 | HP.PCM.HOS_ITS ---
HPI - General General Date of Admission: 07/20/21 Date of Service: 07/20/21 Chief Complaint: Shortness of breath HPI Narrative GUERRERO BAI, is a 41 M who presents who is on vaccinated against COVID-19 presented to the emergency department with shortness of breath. Patient was apparently diagnosed with COVID-19 10 days prior to his admission. He had been seen in the emergency department on multiple occasions. Did complete therapy with Decadron and had been discharged home with home oxygen. Presented to the emergency department with progressive shortness of breath with minimal activity. He also did complain of intermittent fever. CT of the chest obtained on admission was negative for PE however did demonstrate multifocal bilateral groundglass and airspace opacities consistent with Covid pneumonia. Was admitted to regular nursing floor for further management [facility] Medical History COVID-19 Night sweats Home Medications dexamethasone [Decadron] 6 mg PO DAILY #10 tab 07/10/21 [Rx Last Taken Unknown] ondansetron 4 mg PO Q6H PRN #10 tab 07/19/21 [Rx Last Taken Unknown] Allergy/AdvReac Type Severity Reaction Status Date / Time No Known Allergies Allergy Verified 07/11/21 07:56 Family History Father Heart disease Mother Crohn disease A-fib Grandfather Cancer Grandmother Cancer Surgical History H/O adenoidectomy H/O foot surgery H/O hand surgery History of mandibular surgery History of tonsillectomy Social History Smoking Status: Former smoker Tobacco: How many years used: 20 second hand exposure: Yes alcohol intake: never substance use type: marijuana ROS ROS Narrative GENERAL: fever, chills, , anorexia HEENT: denies headache, sinus congestion, RESPIRATORY: cough, sputum production, shortness of breath, dyspnea on exertion CARDIAC: denies chest pain, palpitations, orthopnea, PND GASTROINTESTINAL: denies abdominal pain, nausea, GENITOURINARY: denies dysuria, urgency, frequency, EXTREMITY: denies swelling MUSCULOSKELETAL: denies current joint pain or tenderness NEUROLOGIC: denies focal numbness, weakness, tingling HEMATOLOGIC: denies easy bruising and/or hemorrhage INTEGUMENT: denies rashes PSYCHIATRIC: denies suicidal or homicidal ideation Vital Signs Vital Signs Vital Signs: 07/20/21 06:21 07/20/21 06:25 07/20/21 06:27 Temperature 100.2 F H 100.1 F H Temperature Source Temporal Oral Pulse Rate 81 80 Respiratory Rate 33 H 33 H Respiratory Effort Short of Breath Blood Pressure 128/71 H 128/71 H Blood Pressure Mean 90 90 Pulse Ox 92 93 Oxygen Delivery Method Nasal Cannula Nasal Cannula Oxygen Flow Rate (L/min) 6 6 07/20/21 06:45 07/20/21 06:57 07/20/21 07:25 Temperature 95.9 F L Temperature Source Temporal Pulse Rate 96 77 Respiratory Rate 34 H 21 H 29 H Respiratory Effort Blood Pressure 120/72 Blood Pressure Mean 88 Pulse Ox 92 94 96 Oxygen Delivery Method Nasal Cannula Nasal Cannula Nasal Cannula Oxygen Flow Rate (L/min) 2 2 2 07/20/21 07:31 07/20/21 08:00 07/20/21 08:20 Temperature 95.9 F L Temperature Source Temporal Pulse Rate 77 81 Respiratory Rate 29 H 26 H Respiratory Effort Blood Pressure 120/72 Blood Pressure Mean 88 Pulse Ox 94 94 97 Oxygen Delivery Method Nasal Cannula Nasal Cannula Nasal Cannula Oxygen Flow Rate (L/min) 2 2 4 Weight Weight: 102.2 kg Body Mass Index (BMI) 28.1 Physical Exam Narrative GENERAL: cooperative HEENT: Atraumatic; EYES; Anicteric, Normal Conjunctiva NECK; supple, normal thyroid, RESPIRATORY: Diminished to auscultation CARDIOVASCULAR: Regular S1 S2, GI: soft, normoactive bowel sounds, : No Renal angle tenderness; EXTREMITIES: No edema, no clubbing, MUSCULOSKELETAL: no muscle waisting NEURO: Awake; no lateralizing signs. SKIN: No Rash PSYCH; Flat affect Results Lab / Micro Data Result Diagrams: 07/20/21 06:57 07/20/21 06:57 Labs: Laboratory Results - last 24 hr 07/20/21 06:57: WBC 18.1 H, RBC 5.05, Hgb 14.7, Hct 42.9, MCV 85.0, MCH 29.1, MCHC 34.3, RDW Std Deviation 37.7, RDW Coeff of Kaylen 12.2, Plt Count 174, MPV 9.9, Immature Gran % (Auto) 0.700, Neut % (Auto) 88.7 H, Lymph % (Auto) 5.9 L, [place] % (Auto) 4.6, Eos % (Auto) 0.0, Baso % (Auto) 0.1, Absolute Neuts (auto) 16.1 H, Absolute Lymphs (auto) 1.07, Nucleated RBC % 0 07/20/21 06:57: Sodium 138, Potassium 3.7, Chloride 107, Carbon Dioxide 25.0, Anion Gap 6, BUN 15, Creatinine 0.90, Estim Creat Clear Calc 129.10, Est GFR (MDRD) Af Amer 120, Est GFR (MDRD) Non-Af 99, BUN/Creatinine Ratio 16.7, Glucose 118 H, Calcium 8.7, Total Bilirubin 0.50, AST 29, ALT 34, Alkaline Phosphatase 41 L, Troponin I High Sens 4, Total Protein 7.3, Albumin 2.7 L, Globulin 4.6 H, Albumin/Globulin Ratio 0.6 L 07/20/21 06:57: Lactic Acid 1.4 Radiology Impression Chest CTA 07/20/21 06:32 IMPRESSION: Multifocal bilateral groundglass and airspace opacities, consistent with COVID pneumonia. No pulmonary embolus. No thoracic aortic aneurysm or dissection. Electronically Signed: Roberto Curiel MD at 8:01 EDT Tel , Service support , Assessment & Plan Assessment/Plan (1) Acute hypoxemic respiratory failure: (2) COVID-19: PLAN: Patient is a 41-year-old gentleman presented with progressive shortness of breath 1. Acute hypoxic respiratory failure ?Secondary to SARS-CoV-2 pneumonia. Patient completed 10-day treatment with Decadron. He is outside the window for remdesivir he however presented with worsening symptoms. Patient has been admitted to regular nursing floor. Placed on supplemental oxygen. CT of the chest obtained was negative for PE however did demonstrate multifocal groundglass opacities consistent with COVID-19 pneumonia. Consult placed to both infectious disease as well as pulmonary medicine 2. Pleuritic chest pain ?CT of the chest obtained was negative for PE we will treat symptomatically 3. Leukocytosis -Patient has predominance of neutrophils relative lymphopenia suspected in SARS- CoV-2. We will continue to monitor 4. DVT prophylaxis ?Patient placed on Lovenox 40 mg SC twice daily Charges/Coding Visit Charges Inpatient E&M: 86896 Init Hosp L3
--- NOTE | 2021-07-20 08:47 | NURSING ---
MED SURG [facility]E COVID 19
--- NOTE | 2021-07-20 09:29 | NURSING ---
DR LEWIS IN ROOM
--- NOTE | 2021-07-20 10:25 | PCS.PANDOC ---
PANDEMIC DOCUMENTATION INITIATED: Date: 06/13/2021 Time: 190
[2021-07-20] MEDS: Enoxaparin 40 MG/0.4 ML Syringe SC ×2 (10:53→22:12)
--- NOTE | 2021-07-20 11:56 | EKG12_ITS ---
Test Reason : CP Blood Pressure : / mmHG Vent. Rate : 073 BPM Atrial Rate : 073 BPM P-R Int : 158 ms QRS Dur : 100 ms QT Int : 384 ms P-R-T Axes : 055 008 014 degrees QTc Int : 423 ms Normal sinus rhythm Normal ECG Confirmed by JULIET OGDEN, SHARMILA ([id number]), communications editor RUSTY BETH ([id number]) on 07/25/2021 1:53:52 PM Referred By: HOSP Confirmed By:SHARMILA CHUNG MD
[2021-07-20] MEDS: Acetaminophen 325 MG Tablet 650 MG PO ×2 (16:19→22:12)
[2021-07-21] VITALS (7 sets, daily range): BP systolic 124–139; BP diastolic 65–78; PULSE 66–80; RESP 18–20; TEMP 36.6–36.8; O2SAT 86–97
[2021-07-21] MEDS: guaiFENesin 10 ML UDC (200MG/10ML) 20 ML PO (02:42)
[2021-07-21 06:48] LABS: Absolute Lymphocyte Count 1.85 X10^3/uL (0.83-4.51); Absolute Neutrophil Count 12.4 X10^3/uL (2.0-7.7); Basophil# 0.02 X10^3/uL; Basophil% 0.1 % (0-1); Eosinophil# 0.03 X10^3/uL; Eosinophils% 0.2 % (0-5); Hematocrit 43.5 % (40-54); Hemoglobin 14.8 g/dL (13.0-16.5); Lymphocyte # 1.85 X10^3/ul (0.83-4.51); Lymphocyte % 12.2 % (19-41); Mean Corpuscular Hgb 28.8 pg (27.0-32.0); Mean Corpuscular Volume 84.8 fL (80-94); Mean Platelet Vol. 9.6 fl (6.2-12.0); Monocyte# 0.67 X10^3/uL; Monocyte% 4.4 % (0-10); NRBC Flagged by Analyzer 0 % (0-5); Neutrophil # 12.42 X10^3/uL (2.7-7.7); Neutrophil % 82.2 % (47-70); Platelet Count 168 K/mm3 (150-450); RBC Distribution Width CV 12.5 % (11.6-14.6); RBC Distribution Width SD 38.5 fl (35.1-43.9); Red Blood Count 5.13 M/mm3 (4.6-6.2); White Blood Count 15.1 K/mm3 (4.4-11.0)
[2021-07-21 07:18] LABS: Alkaline Phosphatase 43 U/L (45-117); Anion Gap 4 (5-15); BUN 13 mg/dL (7-18); BUN/Creat Ratio 20.1 RATIO (10-20); Calcium,Total 8.8 mg/dL (8.5-10.1); Chloride 104 mmol/L (98-107); Creatinine, Serum 0.65 mg/dL (0.70-1.30); EST Glomerular Filtration Rate 145 mL/min (>60); Est Glom Filt Rate - Afr Amer 175 mL/min (>60); Estimated Creatinine Clearance 178.75 ml/min; Ferritin 1432 ng/mL (26-388); Glucose 96 mg/dL (74-106); Magnesium 2.3 mg/dL (1.6-2.6); Potassium 3.7 mmol/L (3.5-5.1); Sodium Level 136 mmol/L (136-145); Troponin-I HS 6 pg/mL (3.0-78.0)
[2021-07-21 08:02] LABS: D-Dimer Quantitative (DVT/PE) 0.74 FEU/ug/m (0.27-0.49)
--- NOTE | 2021-07-21 08:07 | PN.HOSP_ITS ---
Objective Data Objective Data Vital Signs: Vital Signs Temp Pulse Resp BP Pulse Ox 98.2 F 66 18 124/69 H 97 07/21/21 05:46 07/21/21 05:46 07/21/21 05:46 07/21/21 05:46 07/21/21 05:46 Oxygen Flow Rate (L/min) 6 Oxygen Delivery Method Nasal Cannula Weight: 100.7 kg Body Mass Index (BMI) 27.7 Intake & Output: Intake and Output for Last 24 Hours 07/19/21 07/20/21 07/21/21 23:59 23:59 23:59 Intake Total 1020 / 1020 350 / 350 Balance 1020 / 1020 350 / 350 Lab / Micro Data Result Diagrams: 07/21/21 06:30 07/21/21 06:30 Labs: Laboratory Results - last 24 hr 07/21/21 06:30: WBC 15.1 H, RBC 5.13, Hgb 14.8, Hct 43.5, MCV 84.8, MCH 28.8, MCHC 34.0, RDW Std Deviation 38.5, RDW Coeff of Kaylen 12.5, Plt Count 168, MPV 9.6, Immature Gran % (Auto) 0.900, Neut % (Auto) 82.2 H, Lymph % (Auto) 12.2 L, [place] % (Auto) 4.4, Eos % (Auto) 0.2, Baso % (Auto) 0.1, Absolute Neuts (auto) 12.4 H, Absolute Lymphs (auto) 1.85, Nucleated RBC % 0 07/21/21 06:30: Sodium 136, Potassium 3.7, Chloride 104, Carbon Dioxide 28.0, Anion Gap 4 L, BUN 13, Creatinine 0.65 L, Estim Creat Clear Calc 178.75, Est GFR (MDRD) Af Amer 175, Est GFR (MDRD) Non-Af 145, BUN/Creatinine Ratio 20.1 H, Glucose 96, Calcium 8.8, Magnesium 2.3, Ferritin 1432 H, Alkaline Phosphatase 43 L, Troponin I High Sens 6, C-React Prot Ext Range 148.00 H 07/21/21 07:30: D-Dimer Quant (PE/DVT) 0.74 H* Physical Exam Narrative GENERAL: cooperative HEENT: Atraumatic; EYES; Anicteric, Normal Conjunctiva NECK; supple, normal thyroid, RESPIRATORY: Diminished to auscultation CARDIOVASCULAR: Regular S1 S2, GI: soft, normoactive bowel sounds, : No Renal angle tenderness; EXTREMITIES: No edema, no clubbing, MUSCULOSKELETAL: no muscle waisting NEURO: Awake; no lateralizing signs. SKIN: No Rash PSYCH; Flat affect Assessment & Plan Assessment/Plan (1) Acute hypoxemic respiratory failure: (2) COVID-19: PLAN: Patient is a 41-year-old gentleman presented with progressive shortness of breath 1. Acute hypoxic respiratory failure ?Secondary to SARS-CoV-2 pneumonia. Patient completed 10-day treatment with Decadron. He is outside the window for remdesivir he however presented with worsening symptoms. Patient has been admitted to regular nursing floor. Placed on supplemental oxygen. CT of the chest obtained was negative for PE however did demonstrate multifocal groundglass opacities consistent with COVID-19 pneumonia. Consult placed to both infectious disease as well as pulmonary medicine 2. Pleuritic chest pain ?CT of the chest obtained was negative for PE we will treat symptomatically 3. Leukocytosis -Patient has predominance of neutrophils relative lymphopenia suspected in SARS-CoV-2. We will continue to monitor 4. DVT prophylaxis ?Patient placed on Lovenox 40 mg SC twice daily
[2021-07-21 08:46] LABS: Procalcitonin 0.15 ng/mL (0.00-0.09)
[2021-07-21] MEDS: Enoxaparin 40 MG/0.4 ML Syringe SC (09:34)
--- NOTE | 2021-07-21 10:35 | CASEMGMT ---
BERNABE MERCER Assessment: Face to Face with pt for initial transition planning/care coordination assessment. BERNABE MERCER introduced self and role at [facility], pt voices understanding and consents to assessment. BERNABE MERCER in to pt room prior and patient would not let CM complete assessment and asked to return in 10 min. Pt is A/O x4 and answers all questions appropriately at this time. Pt sitting up in bed with O2 on in no distress. Pt has his mother on speakerphone. Care providers, pharmacy, and demographics verified/updated. Admitting Dx: COVID 19 PCP: Pt denies having a PCP. Offered patient a local directory of healthcare providers. Pt denied need for this. Specialists: Pt denies. Preferred Pharmacy: [facility] while inpatient Insurance: [employer] Prescription Benefit: yes LW/HPOA: Pt denies having a LW/DPOA and denies need for info regarding AD. LNOK: Marlen/Landy Hernandez, parents; Sheila Antonio, sig other Living Arrangements: Pt lives with sig other and 6 children under 18. Pt reports being I in ADL's and denies concerns at home. Transportation: Pt drives self and denies concerns with transportation. DME/HHC: Pt has O2 in the home from [employer]. He states his concentrator only goes up to 5L. He states his portable tanks are out. Pt was using 4L cont at home per his report. Pt denies hx of HHC. Pt states he was tested first for COVID at [facility]. He states two of his children are positive and the others and his sig other are negative. They are all quarantining. Pt has family who can supply patient with groceries and supplies while in quarantine. Pt is aware this BERNABE MERCER will [place] [facility] [place] another concentrator delivered as he requires 6L with exertion. He will also have a portable tank to use to go home. 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 Pt denies alcohol, cigarette use, street drugs or illegal drug use. Pt states no concerns with going home at time of dc. Pt states no further concerns/needs. CM to follow. Advised pt to ask CM if any further question/concerns/needs arise, voices understanding. Pt Goal: Home Plan: Home
--- NOTE | 2021-07-21 11:33 | PCM.DC.SUM ---
Providers Date of Admission: 07/20/21 Primary Care Physician: Porsha Primary Care Phys Consultations 07/20/21 14:38 Consult: Infectious Disease Routine Consulting Provider: Rafa Herrera Reason for Consult: COVID-19 EMERGENT Consult: No Notified: Yes Date Notified: 07/20/21 Time Notified: 14:38 Method of Notification: Text Consult: General Accounting Clerk / Pulmonary Medicine Routine Consulting Provider: Pulmonary Medicine vikas [place] Reason for Consult: COVID-19 EMERGENT Consult: No Notified: Yes Date Notified: 07/20/21 Time Notified: 14:38 Method of Notification: Text Reason For Visit: COVID 19 Diagnosis Discharge Diagnosis (1) Acute hypoxemic respiratory failure: Status: Acute Code(s): J96.01 - Acute respiratory failure with hypoxia (2) COVID-19: Status: Acute Code(s): U07.1 - COVID-19 Medications at Discharge Home Medications dexamethasone [Decadron] 6 mg PO DAILY #10 tab 07/10/21 ondansetron 4 mg PO Q6H PRN #10 tab 07/19/21 acetaminophen [Tylenol] 650 mg PO Q6H PRN PRN #0 tab 07/21/21 levofloxacin 750 mg PO DAILY #7 tab 07/21/21 Hospital Course Summary of Care Provided Minutes Spent on Discharge: 35 Hospital Course: Patient is a 41-year-old gentleman presented with progressive shortness of breath 1. Acute hypoxic respiratory failure ?Secondary to SARS-CoV-2 pneumonia. Patient completed 10-day treatment with Decadron. He is outside the window for remdesivir he however presented with worsening symptoms. Patient has been admitted to regular nursing floor. Placed on supplemental oxygen. CT of the chest obtained was negative for PE however did demonstrate multifocal groundglass opacities consistent with COVID-19 pneumonia. Consult placed to both infectious disease as -Patient clinical condition did remain stable. Case was discussed with Dr. Herrera with infectious disease. With patient having completed Decadron in outside arrange for baricitinib as well as remdesivir recommended no further treatment. Consult subsequently discontinued. Patient was discharged home with Levaquin in view of his elevated WBC count as well as intermittent fever for possible superimposed bacterial pneumonia 2. Pleuritic chest pain ?CT of the chest obtained was negative for PE we will treat symptomatically 3. Leukocytosis -Patient has predominance of neutrophils relative lymphopenia suspected in SARS-CoV-2. We will continue to monitor 4. DVT prophylaxis ?Patient placed on Lovenox 40 mg SC twice daily Physical Exam Narrative GENERAL: cooperative HEENT: Atraumatic; EYES; Anicteric, Normal Conjunctiva NECK; supple, normal thyroid, RESPIRATORY: Diminished to auscultation CARDIOVASCULAR: Regular S1 S2, GI: soft, normoactive bowel sounds, : No Renal angle tenderness; EXTREMITIES: No edema, no clubbing, MUSCULOSKELETAL: no muscle waisting NEURO: Awake; no lateralizing signs. SKIN: No Rash PSYCH; Flat affect Weight / BMI Weight Weight: 100.7 kg Body Mass Index (BMI) 27.7 ABG / Lab / Microbiology Data Result Diagrams: 07/21/21 06:30 07/21/21 06:30 Laboratory: Laboratory Results - last 24 hr 07/21/21 06:30: WBC 15.1 H, RBC 5.13, Hgb 14.8, Hct 43.5, MCV 84.8, MCH 28.8, MCHC 34.0, RDW Std Deviation 38.5, RDW Coeff of Kaylen 12.5, Plt Count 168, MPV 9.6, Immature Gran % (Auto) 0.900, Neut % (Auto) 82.2 H, Lymph % (Auto) 12.2 L, [place] % (Auto) 4.4, Eos % (Auto) 0.2, Baso % (Auto) 0.1, Absolute Neuts (auto) 12.4 H, Absolute Lymphs (auto) 1.85, Nucleated RBC % 0 07/21/21 06:30: Sodium 136, Potassium 3.7, Chloride 104, Carbon Dioxide 28.0, Anion Gap 4 L, BUN 13, Creatinine 0.65 L, Estim Creat Clear Calc 178.75, Est GFR (MDRD) Af Amer 175, Est GFR (MDRD) Non-Af 145, BUN/Creatinine Ratio 20.1 H, Glucose 96, Calcium 8.8, Magnesium 2.3, Ferritin 1432 H, Alkaline Phosphatase 43 L, Troponin I High Sens 6, C-React Prot Ext Range 148.00 H 07/21/21 06:30: Procalcitonin 0.15 H 07/21/21 07:30: D-Dimer Quant (PE/DVT) 0.74 H* D/C Instructions Discharge Diet: No restrictions Discharge Activity: Return to Normal Activity Call your doctor if you observe: Fever of 101 or Higher, Shortness of breath, Fainting spells and Chest pain Meaningful Use Info Meaningful Use Diagnoses (Choose all that apply): None applicable Discharge Plan Admission Admit Date/Time: 07/20/21 10:24 Attending Provider: Devin Nelson Primary Care Provider: Care Physician,No Primary Instructions Patient Instructions: ED Chest Pain, Noncardiac Discharge Orders/Prescriptions Prescriptions: New acetaminophen [Tylenol] 325 mg Tablet 650 mg PO Q6H PRN PRN (Reason: Pain Score 1-10/Temp > 100.7 F) Qty: 0 RF: 0 levofloxacin 750 mg tablet 750 mg PO DAILY Qty: 7 RF: 0 Continued dexamethasone [Decadron] 6 mg tablet 6 mg PO DAILY Qty: 10 RF: 0 ondansetron 4 mg tablet,disintegrating 4 mg PO Q6H PRN (Reason: nausea and vomiting) Qty: 10 RF: 0 Referrals / Follow Up: Care Physician,No Primary [Primary Care Provider] - Disposition Disposition (needs filled in before D/C Order can be placed): Home, Self Care Charges/Coding Visit Charges Inpatient E&M: 92098 Disch Hosp
[2021-07-21] MEDS: Acetaminophen 325 MG Tablet 650 MG PO (12:09)
--- NOTE | 2021-07-21 12:46 | CASEMGMT ---
[place] [facility] [place]. TC to Isis at [facility] [place] make aware that pt is being sent home with a portable tank as he is out and that he needs 6L with exertion and patient reports his concentrator only goes to 5L. She is aware that pt will call when he arrives home.
--- NOTE | 2021-07-21 14:20 | PHA.DC.MR ---
Pharmacy Service has performed discharge medication reconciliation for this patient. Patient in COVID precautions, attempted to call patient x2 to tele-correctional counselor without success. Medication list was reviewed. Home Medications dexamethasone [Decadron] 6 mg PO DAILY #10 tab 07/10/21 ondansetron 4 mg PO Q6H PRN #10 tab 07/19/21 acetaminophen [Tylenol] 650 mg PO Q6H PRN PRN #0 tab 07/21/21 levofloxacin 750 mg PO DAILY #7 tab 07/21/21 The patient's discharge medication list was reviewed for discrepancies and discrepancies were resolved.
--- NOTE | 2021-07-22 15:20 | CASEMGMT ---
BERNABE CM Discharge Follow Up COVID Phone Call: LACE: 8 Strata:2 Call Date: 07/22/21 Discharge Date: 07/21/21 Time of Call:[id number] Duration:<1 min Admitting Dx: COVID 19 BERNABE MERCER attempted to complete follow up phone call after recent hospitalization due to COVID 19. No answer at this time.
--- NOTE | 2021-08-01 10:05 | CASEMGMT ---
Received tc from Darwin at [facility] who questions the script sent over from last admission. Made aware that pt liter flow orders had changed and that this RN CM notified Isis as his prior concentrator only went up to 5L per his report and he was requiring 6L on exertion.
== END 2021-07-21 14:23 | disposition home or self-care (01) | DRG 137 ==
LOC: ED 08:47 → MS3 14:59
PROVIDERS: Emergency Medicine; Admitting Provider Internal Medicine; Emergency Provider Emergency Medicine; Visit Provider Internal Medicine
DX: U07.1 COVID-19 (principal); J96.01 Acute respiratory failure with hypoxia; J12.82 Pneumonia due to coronavirus disease 2019; Z87.891 Personal history of nicotine dependence; J15.9 Unspecified bacterial pneumonia; G43.909 Migraine, unspecified, not intractable, without status migrainosus
CPT/HCPCS: 36415; 71045; 71275; 80048; 80053; 82728; 83605; 83735; 84075; 84145; 84484; 85025; 85379; 86140; 93005; 94640; 94667; 96361; 96374; 96375; 99251; 99283; 99285; J7030; Q9967; A4216; G0463

== ENCOUNTER 2023-04-30 02:11 | Emergency (ER) | payer MEDICAID, SELFPAY ==
[2023-04-30 02:13] VITALS: BP 129/85; PULSE 86; RESP 18; TEMP 36; O2SAT 97
--- NOTE | 2023-04-30 02:27 | EDS_ITS ---
HPI History of Present Illness Chief Complaint: Back Informant: patient Onset/Context/Timing Onset: Days (10) Context: Gradual Onset Timing: Continuous Quality: Sharp Location: Lumbar Worsened by: improves with Movement and Bending Relieved by: Remaining Still Narrative Narrative: Patient presents with back pain that became worse tonight. Patient states that he has been having some pain in his low back for the past 10 days. Patient states he went to an urgent care earlier this week and was given a prescription for Decadron. Patient states he has been taking this as prescribed. Patient states tonight he fell asleep in a recliner and when he woke up he was having difficulty getting out of the recliner due to his back pain. Patient states the pain is worse with any weightbearing on his left leg. Patient states he is able to bear weight on the right leg without difficulty. Patient denies any radiation of the pain down his legs. Patient denies any paresthesias or weakness. Patient denies any trauma or injury. Patient denies any bowel or bladder changes. Patient denies any saddle anesthesia. [facility] Medical History COVID-19 Night sweats Home Medications dexamethasone 6 mg tablet (Decadron) 6 mg PO DAILY #10 tabs 07/10/21 [Rx Last Taken Unknown] ondansetron 4 mg disintegrating tablet 4 mg PO Q6H PRN nausea and vomiting #10 tabs 07/19/21 [Rx Last Taken Unknown] acetaminophen 325 mg tablet (Tylenol) 650 mg (2 x 325 mg) PO Q6H PRN PRN Pain Score 1-10/Temp > 100.7 F #0 tabs 07/21/21 [Rx Last Taken Unknown] levofloxacin 750 mg tablet 750 mg PO DAILY #7 tabs 07/21/21 [Rx Last Taken Unknown] cyclobenzaprine 10 mg tablet 10 mg PO QHS PRN PRN Muscle Spasm #10 TABLETS 04/30/23 [Rx Last Taken Unknown] hydrocodone-acetaminophen 5-325mg 5mg-325mg 1 tab PO Q6H PRN PRN Pain 3 days #10 TABLETS 04/30/23 [Rx Last Taken Unknown] Allergy/AdvReac Type Severity Reaction Status Date / Time No Known Allergies Allergy Verified 04/30/23 02:16 Family History Father Heart disease Mother Crohn disease A-fib Grandfather Cancer Grandmother Cancer Surgical History H/O adenoidectomy H/O foot surgery H/O hand surgery History of mandibular surgery History of tonsillectomy Social History Smoking Status: Former smoker Tobacco: How many years used: 20 second hand exposure: Yes alcohol intake: never substance use type: marijuana ROS ROS ED Constitutional Constitutional ED: Denies chills or fever(s) Eyes Eyes: Denies blurry vision or change in vision ENT ENT ED: Denies rhinorrhea or sore throat Cardiovascular Cardiovascular: Denies chest pain or palpitations Respiratory/Chest Respiratory/Chest: Denies cough or dyspnea Gastrointestinal Gastrointestinal: Reports abdominal pain and nausea; Denies vomiting Genitourinary Genitourinary ED: Denies dysuria or hematuria Musculoskeletal Musculoskeletal: Reports back pain; Denies neck pain Integumentary Denies abscess or rash Neurologic Neurologic: Denies headache(s) or weakness Allergic/Immunologic Allergic/Immunologic ED: Denies mouth swelling or urticaria EXAM Physical Exam Const Vital Signs: 04/30/23 02:13 Temperature 96.8 F L Temperature Source Temporal Pulse Rate 86 Respiratory Rate 18 Blood Pressure 129/85 H Blood Pressure Mean 99 Pulse Ox 97 Oxygen Delivery Method Room Air Positive well nourished and well developed General Appearance ED: well developed and NAD HEENT Reports moist mucous membranes Neck supple and no JVD Back/Spine Back/Spine Narrative: There is tenderness over the right lower lumbar paraspinal muscles. There is some mild midline tenderness. There is no bony crepitance or step-off. Range of motion was limited in all motions of the lumbar spine secondary to pain. Strength is 5/5 bilaterally in the lower extremities. There are no sensory deficits noted. Deep tendon reflexes are 2-4 bilaterally in the lower extremities. Straight leg raises were negative bilaterally. Lumbar Spine / Lower Back: ROM limited and straight leg raise negative bilaterally Extremity normal to inspection General Extremety ED: Negative for edema or tenderness General Extremity: Negative for edema Neuro oriented x3 and no sensory deficits noted Sensorium / Orientation: alert Motor Exam: strength 5/5 throughout Deep Tendon Reflexes: Rt Patellar (L4): 2+, Lt Patellar (L4): 2+, Rt Ankle (S1): 2+ and Lt Ankle (S1): 2+ Deep Tendon Reflexes Back: Rt Patellar (L4): 2+, Lt Patellar (L4): 2+, Rt Ankle (S1): 2+ and Lt Ankle (S1): 2+ Psych mental status grossly normal MDM MDM MDM Narrative Medical decision making narrative: Differential diagnosis includes spondylolisthesis, degenerative disc disease, degenerative arthritis, sciatica, and lumbosacral strain. X-rays of the lumbar spine will be obtained to assess for spondylolisthesis arthritis, and occult fracture. Radiography X-Ray: LS SPine, Normal, No Fracture and Normal Bony Alignment Diagnostic Testing: Clinical Impression(s) from Imaging Studies Lumbar Spine X-Ray 04/30/23 02:33 IMPRESSION: Slight scoliotic curvature of lumbar spine with no acute osseous abnormality. Electronically Signed: Jefe Tamayo MD at 3:26 EDT , X-rays of the lumbar spine were obtained. There are 3 views. On my independent interpretation, there is no acute fracture or spondylolisthesis. Radiologist also interpreted the x-rays and agrees. Treatment and Re-Evaluation Narrative: Patient was given injection of Toradol, Norflex, and morphine. Discharge Plan Triage Chief Complaint: Back ED Provider: Willis Astorga Dx/Rx/DC Orders Clinical Impression: Lumbosacral strain Instructions: ED Back Sprain/Strain Prescriptions: New cyclobenzaprine [cyclobenzaprine] 10 mg tablet 10 mg PO QHS PRN PRN (Reason: Muscle Spasm) Qty: 10 0RF hydrocodone-acetaminophen [hydrocodone-acetaminophen] 5-325 mg tablet 1 tab PO Q6H PRN PRN (Reason: Pain) 3 Days Qty: 10 0RF No Action dexamethasone [Decadron] 6 mg tablet 6 mg PO DAILY Qty: 10 0RF ondansetron 4 mg tablet,disintegrating 4 mg PO Q6H PRN (Reason: nausea and vomiting) Qty: 10 0RF acetaminophen [Tylenol] 325 mg Tablet 650 mg PO Q6H PRN PRN (Reason: Pain Score 1-10/Temp > 100.7 F) Qty: 0 0RF levofloxacin 750 mg tablet 750 mg PO DAILY Qty: 7 0RF Primary Care Provider: Care Physician,No Primary Referrals: Sonia Pierce DO [Med Staff - Active Staff] - 3-5 Days Care Physician,No Primary [Primary Care Provider] - Disposition Disposition: Home, Self Care
--- NOTE | 2023-04-30 02:33 | RAD_ITS ---
INDICATION: Chronic lower back pain, no known injury EXAMINATION/TECHNIQUE: X-RAY - XR Spine Lumbar 2 or 3 Views: AP, lateral and spot views COMPARISON: Lumbar spine radiographs from 12/07/2016 FINDINGS: VERTEBRAE: Preserved vertebral body heights. No fracture identified. No spondylolisthesis. Preservation of the normal lumbar lordosis. Slight dextroscoliotic curvature of lumbar spine. No suspicious osseous lesion. Mild endplate spurring noted. DISCS: Disc spaces are maintained. INCLUDED ABDOMEN: Included bowel gas pattern is non-obstructive. RAD/Lumbar Spine 2 or 3 Views IMPRESSION: Slight scoliotic curvature of lumbar spine with no acute osseous abnormality. Electronically Signed: Jefe Tamayo MD at 3:26 EDT ,
[2023-04-30] MEDS: Morphine 4 MG/ML Syringe IM (03:01)
[2023-04-30] MEDS: Ketorolac 60 MG/2 ML Vial IM (03:01)
[2023-04-30] MEDS: Orphenadrine 60 MG/2 ML Ampul IM (03:01)
== END 2023-04-30 03:47 | disposition home or self-care (01) ==
PROVIDERS: Emergency Provider Emergency Medicine; Visit Provider Emergency Medicine
DX: S39.012A Strain of muscle, fascia and tendon of lower back, initial encounter (principal); Z87.891 Personal history of nicotine dependence
CPT/HCPCS: 72100; 96372; 99284

== ENCOUNTER 2023-05-02 09:55 | Emergency (ER) | payer MEDICAID, SELFPAY ==
[2023-05-02 09:56] VITALS: BP 119/108; PULSE 102; RESP 16; TEMP 36; O2SAT 98
--- NOTE | 2023-05-02 10:09 | ED.VIS.BACK ---
HPI History of Present Illness Chief Complaint: Back Informant: patient and family Onset/Context/Timing Onset: Weeks Narrative Narrative: Patient returns to the ER secondary to continued back pain. He was seen here on the third where x-rays were rather unremarkable. He was discharged with Kenna and Pey[facility]. Patient states he initially developed some mild back pain 2 weeks ago after he slept on a couch. It got better for 2 days but then worsened after he slept wrong again. Pain has been increasing for the past 10 days. He does have pain around the waistband area in his back that goes down his right leg when he tries to ambulate. No problems with bowel or bladder control. He does report some mild constipation and bloating. [facility] Medical History COVID-19 Home Medications dexamethasone 6 mg tablet (Decadron) 6 mg PO DAILY #10 tabs 07/10/21 [Rx Last Taken Unknown] ondansetron 4 mg disintegrating tablet 4 mg PO Q6H PRN nausea and vomiting #10 tabs 07/19/21 [Rx Last Taken Unknown] acetaminophen 325 mg tablet (Tylenol) 650 mg (2 x 325 mg) PO Q6H PRN PRN Pain Score 1-10/Temp > 100.7 F #0 tabs 07/21/21 [Rx Last Taken Unknown] levofloxacin 750 mg tablet 750 mg PO DAILY #7 tabs 07/21/21 [Rx Last Taken Unknown] cyclobenzaprine 10 mg tablet 10 mg PO QHS PRN PRN Muscle Spasm #10 TABLETS 04/30/23 [Rx Last Taken Unknown] hydrocodone-acetaminophen 5-325mg 5mg-325mg 1 tab PO Q6H PRN PRN Pain 3 days #10 TABLETS 04/30/23 [Rx Last Taken Unknown] prednisone 20 mg tablet 40 mg (2 x 20 mg) PO DAILY #8 tabs 05/02/23 [Rx Last Taken Unknown] Allergy/AdvReac Type Severity Reaction Status Date / Time No Known Allergies Allergy Verified 04/30/23 02:16 Family History Father Heart disease Mother Crohn disease A-fib Grandfather Cancer Grandmother Cancer Surgical History H/O adenoidectomy H/O foot surgery H/O hand surgery History of mandibular surgery History of tonsillectomy Social History Smoking Status: Former smoker Tobacco: How many years used: 20 second hand exposure: Yes alcohol intake: never substance use type: marijuana ROS ROS ED Constitutional Constitutional ED: Denies chills or fever(s) Eyes Eyes: Denies change in vision or discharge from eye(s) ENT ENT ED: Denies discharge from eye(s), rhinorrhea or sore throat Cardiovascular Cardiovascular: Denies chest pain or palpitations Respiratory/Chest Respiratory/Chest: Denies cough or dyspnea Gastrointestinal Gastrointestinal: Reports constipation; Denies abdominal pain, diarrhea, nausea or vomiting Genitourinary Genitourinary ED: Denies difficulty urinating or dysuria Musculoskeletal Musculoskeletal: Reports back pain and extremity pain Integumentary Denies Abrasions or rash Neurologic Neurologic: Denies headache(s) or weakness Allergic/Immunologic Allergic/Immunologic ED: Denies lip swelling or urticaria EXAM Physical Exam Const Vital Signs: 05/02/23 09:56 Temperature 96.8 F L Temperature Source Temporal Pulse Rate 102 H Respiratory Rate 16 Blood Pressure 119/108 H Blood Pressure Mean 111 Pulse Ox 98 Oxygen Delivery Method Room Air Positive well nourished and well developed General Appearance ED: well developed HEENT Reports normocephalic and head/scalp atraumatic Eyes PERRL and EOMs intact bilaterally Neck supple Chest Wall inspection of chest normal and palpation of chest normal Resp normal respiratory effort and clear to auscultation bilaterally Cardio regular rate and regular rhythm GI normal to inspection, nondistended, normoactive bowel sounds Palpation: soft Back/Spine Back/Spine Narrative: Mild reproducible tenderness of the right sciatic notch. No midline tenderness noted at this time. Extremity normal to inspection Neuro oriented x3 and no sensory deficits noted Neuro Narrative: Straight leg raise of the lower extremities negative bilaterally. Sensorium / Orientation: alert Motor Exam: strength 5/5 throughout Psych mental status grossly normal Skin no rashes or lesions noted MDM MDM MDM Narrative Medical decision making narrative: Patient is given IM morphine and Toradol. He is given p.o. prednisone and Flexeril. Patient's recent hospital visit was reviewed as well as imaging studies. History & Record Review Discussion w/independent historian: Patient and Family Additional record(s) reviewed:: Prior ED visit Treatment and Re-Evaluation Narrative: On repeat evaluation patient is resting comfortably. He states he still has pain, but it is improved. I advised him that there is nothing I can do to completely take away all his pain. I will refer him to a local PCP to establish care as he may require physical therapy. I will add steroids to his current home regimen. Return instructions provided. Discharge Plan Triage Chief Complaint: Back ED Provider: Sheila Arauz Dx/Rx/DC Orders Clinical Impression: Lumbosacral strain Instructions: ED Back Sprain/Strain, ED Sciatica Prescriptions: New prednisone 20 mg tablet 40 mg PO DAILY Qty: 8 0RF No Action dexamethasone [Decadron] 6 mg tablet 6 mg PO DAILY Qty: 10 0RF ondansetron 4 mg tablet,disintegrating 4 mg PO Q6H PRN (Reason: nausea and vomiting) Qty: 10 0RF acetaminophen [Tylenol] 325 mg Tablet 650 mg PO Q6H PRN PRN (Reason: Pain Score 1-10/Temp > 100.7 F) Qty: 0 0RF levofloxacin 750 mg tablet 750 mg PO DAILY Qty: 7 0RF cyclobenzaprine [cyclobenzaprine] 10 mg tablet 10 mg PO QHS PRN PRN (Reason: Muscle Spasm) Qty: 10 0RF hydrocodone-acetaminophen [hydrocodone-acetaminophen] 5-325 mg tablet 1 tab PO Q6H PRN PRN (Reason: Pain) 3 Days Qty: 10 0RF Primary Care Provider: Care Physician,No Primary Referrals: Deena Borges MD [Med Staff - Active Staff] - As soon as possible Care Physician,No Primary [Primary Care Provider] - Disposition Disposition: Home, Self Care
[2023-05-02] MEDS: cycloBENZAPRine HCl 10 MG Tablet PO (10:14)
[2023-05-02] MEDS: predniSONE 20 MG Tablet 60 MG PO (10:14)
[2023-05-02] MEDS: Ketorolac 60 MG/2 ML Vial IM (10:15)
[2023-05-02] MEDS: morphine 10 MG/ML Syringe IM (10:15)
== END 2023-05-02 11:35 | disposition home or self-care (01) ==
PROVIDERS: Emergency Provider Emergency Medicine; Visit Provider Emergency Medicine
DX: S39.012A Strain of muscle, fascia and tendon of lower back, initial encounter (principal); Z87.891 Personal history of nicotine dependence; X58.XXXA Exposure to other specified factors, initial encounter
CPT/HCPCS: 96372; 99283

== ENCOUNTER → 2023-05-15 | Outpatient (CLI) | payer MEDICAID, SELFPAY ==
[2023-05-15 07:24] LABS: Absolute Lymphocyte Count 5.13 X10^3/uL (0.83-4.51); Absolute Neutrophil Count 7.6 X10^3/uL (2.0-7.7); Basophil# 0.05 X10^3/uL; Basophil% 0.4 % (0-1); Eosinophil# 0.12 X10^3/uL; Eosinophils% 0.9 % (0-5); Hematocrit 50.7 % (40-54); Hemoglobin 17.2 g/dL (13.0-16.5); Lymphocyte # 5.13 X10^3/ul (0.83-4.51); Lymphocyte % 37.4 % (19-41); Mean Corp Hgb Conc 33.9 g/dL (32-36); Mean Corpuscular Hgb 29.7 pg (27.0-32.0); Mean Corpuscular Volume 87.6 fL (80-94); Monocyte# 0.72 X10^3/uL; Monocyte% 5.2 % (0-10); NRBC Flagged by Analyzer 0 % (0-5); Neutrophil # 7.59 X10^3/uL (2.7-7.7); Neutrophil % 55.2 % (47-70); POSITIVE DIFFERENTIAL YES; Platelet Count 252 K/mm3 (150-450); RBC Distribution Width CV 12.8 % (11.6-14.6); RBC Distribution Width SD 40.7 fl (35.1-43.9); Red Blood Count 5.79 M/mm3 (4.6-6.2); White Blood Count 13.7 K/mm3 (4.4-11.0)
[2023-05-15 07:28] LABS: Differential Indicated SCAN CRITERIA MET
[2023-05-15 07:35] LABS: Erythrocyte Sedimentation Rate 3 mm/hr (0-20)
[2023-05-15 08:02] LABS: AST(SGOT) 18 U/L (15-37); Alanine Aminotransfer ALT/SGPT 33 U/L (16-61); Albumin, Serum 3.7 g/dL (3.2-5.0); Alkaline Phosphatase 38 U/L (45-117); Anion Gap 4 (5-15); BUN 12 mg/dL (7-18); BUN/Creat Ratio 11.5 RATIO (10-20); CRP < 2.90 mg/L (0.0-3.0); Calcium,Total 8.9 mg/dL (8.5-10.1); Chloride 106 mmol/L (98-107); Cholesterol 214 mg/dL (200); Creatinine, Serum 1.04 mg/dL (0.70-1.30); EST Glomerular Filtration Rate 83 mL/min (>60); Est Glom Filt Rate - Afr Amer 100 mL/min (>60); Globulin 3.8 g/dL (2.2-4.2); Glucose 95 mg/dL (74-106); High Density Lipoprotein 52 mg/dL; Potassium 3.7 mmol/L (3.5-5.1); Protein, Total 7.5 g/dL (6.4-8.2); Sodium Level 140 mmol/L (136-145); Triglycerides 162 mg/dL; Very Low Density Lipoprotein 32 mg/dL (5-40)
== END | disposition home or self-care (01) ==
LOC: LAB 06:30
PROVIDERS: PCP Internal Medicine; Referring Provider Internal Medicine; Visit Provider Internal Medicine
DX: Z13.6 Encounter for screening for cardiovascular disorders (principal); M54.50 Low back pain, unspecified; G89.29 Other chronic pain
CPT/HCPCS: 36415; 80053; 80061; 85025; 85652; 86140

== ENCOUNTER → 2023-05-22 | Outpatient (CLI) | payer MEDICAID, SELFPAY ==
[2023-05-22 13:17] LABS: Lipase 43 U/L (13-75); Thyroid Stim Hormone (TSH) 1.02 uIU/mL (0.358-3.74)
== END | disposition home or self-care (01) ==
LOC: BIMLAB 09:04
PROVIDERS: PCP Internal Medicine; Referring Provider Internal Medicine; Visit Provider Internal Medicine
DX: R14.0 Abdominal distension (gaseous) (principal)
CPT/HCPCS: 36415; 83690; 84443

== ENCOUNTER → 2023-06-12 | Outpatient (CLI) | payer MEDICAID, SELFPAY ==
--- NOTE | 2023-06-12 13:45 | CT_ITS ---
STUDY: CT ABDOMEN AND PELVIS WITH CONTRAST REASON FOR EXAM: Male, 43 years old. Bloating, left groin bulge x 2 months RADIATION DOSAGE (If Supplied By Facility): CTDIvol = ( 22.37 ) mGy, DLP = ( 1415.58 ) mGycm TECHNIQUE: Transaxial images were obtained from the dome of the diaphragm to the symphysis pubis with oral contrast. Oral and amp; IV Readi-CAT and amp; 100mL Isovue-370 was administered. Sagittal and coronal images were reconstructed. Individualized dose optimization techniques were used for this CT. COMPARISON: None. FINDINGS: The visualized lung bases are unremarkable. The visualized portions of the heart are within normal limits. There is decreased attenuation of the liver consistent with steatosis. Normal gallbladder and extrahepatic biliary system. Normal spleen. Normal pancreas. Normal bilateral adrenal glands. Normal right kidney. Benign cysts are seen in the left kidney. The largest cyst measures 2.6 cm. Normal visualized stomach. Normal small intestine. Normal colon. The appendix is visualized and appears normal. Normal abdominal aorta. Normal inferior vena cava. Normal retroperitoneum. Normal urinary bladder. Normal abdominal wall. Normal osseous structures. CT/Abdomen/Pelvis WITH Contrast IMPRESSION: Left renal cyst. Electronically Signed: Nolan Carranza MD at 14:44 EDT ,
== END | disposition home or self-care (01) ==
LOC: CT 13:39
PROVIDERS: PCP Internal Medicine; Referring Provider Internal Medicine; Visit Provider Internal Medicine
DX: R14.0 Abdominal distension (gaseous) (principal)
CPT/HCPCS: 74177; Q9967

== ENCOUNTER 2023-06-15 12:00 | Outpatient (RCR) | payer MEDICAID, SELFPAY ==
--- NOTE | 2023-05-24 13:21 | HP.PTEVAL ---
Patient's Visit Information Visit Information Visit Information: GUERRERO BAI is a 43 year old M referred to Physical Therapy by Dr. Deena Borges MD with a diagnosis of Low Back Pain. Date of Evaluation: 05/24/23 Physical Therapist: Za Brownlee DPT Visit Plan Frequency: 2-3x /Week Duration: 4 Weeks Plan: Focus on core strength/stabilization- extension bias- modalities PRN HEP Given IE: prone on elbow, posture, scapular retractions Subjective Subjective: Patient reports that he has had back problems on/off for years- right now he has pain that is constant in the center of the back. He has had back pain for 10 years- he was at work- ended up in Workers Comp and was off for awhile. This time it has been going on for about a month- he was not able to get up and move at all- the only thing he remembers was sleeping on the couch- woke up and was having issues. Went to ED- He has had a steroid dose pack and a muscle relaxer which helped but it has not completely gone away- slept in the recliner and the pain came right back- has not gone away since. Pain is located left side along the belt line and in the center- and it radiates to the lower right quadrant of the abdomen- he does have some locking- it shoots down to the knee- left leg mostly. Describes the pain as sharp. Worst: 9/10 Agg: going from sitting to standing. Eases: different positions make it more tolerable. Best: 3/10. Sleep: disturbed- normally a stomach or right side- right now trying to find a comfortable position. No loss or change in bowel or bladder. He has had an x-ray but no MRI recently. He has never had injections. 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 When he is transitioning from sit to stand or stand to sit he feels that his legs may buckle. PMHx/Meds: no changes since saw Dr. Kim. Objective Objective: Posture: poor in both sitting and standing- FH, RS- can correct but does not maintain Gait: no LE deviation noted HR/TR: able without UE A SLS: Left: 30 sec without sway and feels stable- Right: 10 sec with increased sway and reports instability ROM: WFL in all planes but reports pain with lumbar forward flexion, right side bending and left rotation Strength: Core: fair, Right: Hip: 4/5 throughout, Knee: 4+/5, Ankle: 4+/5 Left: Hip: 4+/5 throughout, Knee:5/5, Ankle: 5/5 Sensation: WNL to gross touch bilateral Reflex: WNL to patella Flex: HS: moderate, Gastroc: moderate Special Tests L/S Slump test left side: Positive L/S Slump test right side: Negative L/S Left Straight Leg Raise: Positive L/S Right Straight Leg Raise: Negative Balance/Special Test Scores Oswestry Low Back Score: 23 Goals Goal 1:: Patient will be I with HEP and progression Goal Time Frame: 4-6 Weeks Goal 2:: Patient will maintain proper posture t/o tx session to demo increased core s/s Goal Time Frame: 4-6 Weeks Goal 3:: Patient will demo 10 sit to stands without pain Goal Time Frame: 4-6 Weeks Goal 4:: Patient will report no dural s/s for 1 week Goal Time Frame: 4-6 Weeks Goal 5:: Patient will report 80% improvement Goal Time Frame: 4-6 Weeks Rehabilitation Potential Physical Therapy Diagnosis: Patient presents with hypomobility- he has guarded posture in both sitting and standing, decreased core strength/stabilization, LE strength, flex and muscular endurance leading to radicular s/s and increased pain with ADL's Rehabilitation Potential: Fair Anticipated Interventions Patient/Client Instruction: Educate patient on: Benefits of Fitness Program Therapeutic Exercise to Include: Strength training, Endurance training, Balance training, Coordination, Agility training, Body mechanics, Postural training, Flexibilty training, Gait and locomotor training, Neuromotor development, Dynamic Lumbar Stabilization and Scapular Strength/Stabilization For the Purpose of:: To improve muscle performance and motor function TENS: Yes Cryotherapy (ice pack, ice massage): Yes Thermo therapy (hot pack): Yes Ultrasound (thermal/non thermal): Yes Text: Thank you for the opportunity to evaluate your patient. For Medicare and Medicare HMO plans, please review the plan of care and approve it. It will need to be FAXED BACK to us at [phone] for Medicare purposes. For Medicare only, by signing this I certify the plan of care. Please let me know if there are questions or concerns regarding this plan of care. Physician Signature: Date:
== END 2023-06-15 19:00 | disposition home or self-care (01) ==
LOC: PT 12:00
PROVIDERS: PCP Internal Medicine; Referring Provider Internal Medicine; Visit Provider Internal Medicine
DX: M54.50 Low back pain, unspecified (principal); G89.29 Other chronic pain
CPT/HCPCS: 97014; 97110; 97162; G0283

== ENCOUNTER → 2023-07-14 | Outpatient (CLI) | payer MEDICAID, SELFPAY ==
--- NOTE | 2023-07-14 08:24 | US_ITS ---
HISTORY: Left lower quadrant pain. TECHNIQUE: Nazario scale imaging was performed over the left lower quadrant. 25 images. COMPARISON: CT 06/12/2023. FINDINGS: No hernia or fluid collection demonstrated. US/Abdomen Limited IMPRESSION: Unremarkable examination. Electronically Signed: Whitney Goel MD at 10:21 EDT ,
== END | disposition home or self-care (01) ==
LOC: US 08:21
PROVIDERS: PCP Internal Medicine; Referring Provider Surgery; Visit Provider Surgery
DX: R10.9 Unspecified abdominal pain (principal)
CPT/HCPCS: 76705

== ENCOUNTER → 2023-08-04 | Outpatient (CLI) | payer MEDICAID, SELFPAY ==
--- NOTE | 2023-08-04 07:03 | MRI_ITS ---
STUDY: MRI LUMBAR SPINE WITHOUT CONTRAST REASON FOR EXAM: Male, 43 years old. chronic back pain, failed conservative therapy -- titanium in jaw TECHNIQUE: Standardized fat and water weighted pulse sequences were obtained in the sagittal and axial planes. COMPARISON: CT of abdomen and pelvis dated February 10, 2023. X-ray the lumbar spine dated April 30, 2023 FINDINGS: T12-L1: Normal endplates. Normal disc height, hydration and morphology. Normal bilateral facet joints. Normal central canal and bilateral lateral recesses. Normal bilateral intervertebral neural foramina. Normal lumbar lordosis. There is no substantial scoliosis. Normal conus medullaris that terminates at the T12-L1 level. No marrow edema or fracture or aggressive abnormality. Benign fatty hemangioma of the T12 vertebral body noted. L1-2: Normal endplates. Normal disc height, hydration and morphology. Normal bilateral facet joints. Normal central canal and bilateral lateral recesses. Normal bilateral intervertebral neural foramina. L2-3: Normal endplates. Normal disc height, hydration and morphology. Normal bilateral facet joints. Normal central canal and bilateral lateral recesses. Normal bilateral intervertebral neural foramina. L3-4: Normal endplates. Diffuse disc desiccation with mild disc space narrowing and slight annular bulging. Mild anterior endplate spurring and degenerative signal. Normal bilateral facet joints. Normal central canal and bilateral lateral recesses. Normal bilateral intervertebral neural foramina. L4-5: Diffuse disc desiccation with mild disc space narrowing and diffuse disc bulging. Mild endplate spurring. Bilateral lateral recess stenosis with nerve root impingement. Normal bilateral facet joints. Normal central canal. Normal left neural foramen. Mild right foraminal stenosis. L5-S1: Normal endplates. Diffuse disc desiccation with mild to moderate posterior disc space narrowing and mild posterior annular bulging with a superimposed right paracentral shallow disc protrusion. Normal bilateral facet joints. Normal central canal and bilateral lateral recesses. Normal bilateral intervertebral neural foramina. Normal visualized sacral ala. Normal visualized paraspinous soft tissue structures. MRI/Spine Lumbar (Routine) IMPRESSION: Multilevel degenerative changes, as described above. Electronically Signed: Deng Engle MD at 16:08 EDT ,
== END | disposition home or self-care (01) ==
LOC: MRI 07:08
PROVIDERS: PCP Internal Medicine; Visit Provider Internal Medicine
DX: M54.50 Low back pain, unspecified (principal); G89.29 Other chronic pain
CPT/HCPCS: 72148

== ENCOUNTER 2023-09-17 07:42 | Emergency (ER) | payer MEDICAID, SELFPAY ==
[2023-09-17 07:43] VITALS: BP 144/126; PULSE 124; RESP 16; TEMP 36.4; O2SAT 97; BMI 28.1
--- NOTE | 2023-09-17 08:03 | ED.VIS.BACK ---
HPI History of Present Illness Chief Complaint: Back Narrative Narrative: 43-year-old male presenting with acute exacerbation of chronic back pain. Patient states he sees Dr. Marie of orthospine. Recently had MRI of his lower back which showed degenerative changes. Denies any loss of bladder or bowel control. Patient states he was referred to pain management and started on methylprednisolone, Flexeril, gabapentin. Patient states that he has been on this for the last couple of days. He reports that last evening he was stepping over a baby gate and caught his right foot exacerbating some pain in the right lower back/gluteal region. He states that when he saw pain management it was more on the left. Patient sporadically has a pain on the left knee on the right and this is confirmed by orthopedics medical record. Patient denies any direct trauma. He states he did not take his home medications today before coming because he needed to eat breakfast before he took him and wanted some relief. He did bring his meds with him. PFSH PFS Medical History Abdominal pain Bone fracture COVID-19 Frequent headaches Gastroesophageal reflux disease Gastrointestinal problem Histoplasmosis History of alcohol abuse History of back problems History of drug abuse Kidney infection Kidney stones Seasonal allergies Home Medications cyclobenzaprine 10 mg tablet 10 mg PO QHS PRN PRN Muscle Spasm #10 TABLETS 04/30/23 [Rx Last Taken Unknown] pantoprazole 40 mg tablet,delayed release (Protonix) 40 mg PO DAILY #90 tabs 06/28/23 [Rx Last Taken Unknown] ibuprofen 200 mg capsule 200 mg PO Q6H PRN 08/10/23 [History Last Taken Unknown] Allergy/AdvReac Type Severity Reaction Status Date / Time ethinyl estradiol Allergy Mild runny nose Verified 08/10/23 09:25 [From [facility] (91)] levonorgestrel Allergy Mild runny nose Verified 08/10/23 09:25 [From [facility] (91)] Family History Father Heart disease Alcoholism Anxiety Arthritis Cancer colon Hypertension Hyperlipidemia CVA (cerebral vascular accident) Thyroid disorder Mother Crohn disease A-fib Anemia Anxiety Arthritis Pulmonary emboli Depression Grandfather Cancer Grandmother Cancer Asthma Diabetes Myocardial infarction Hypertension Uncle Alcoholism Lung disease Sister Cancer cervical Depression Brother Seizures Surgical History H/O adenoidectomy H/O foot surgery H/O hand surgery History of mandibular surgery History of tonsillectomy Social History household members: significant other and children current occupational status: employed 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 Smoking Status: Former smoker quit date: 03/29/20 pack-years: 50 Tobacco: How many years used: 20 Electronic Cigarette Use: not used second hand exposure: Yes alcohol intake: former year quit: 2007 substance use type: former substance user Date of last use: used 'everything' around 2007 and marijuana seatbelt use: sometimes do you feel safe at home: Yes ROS ROS ED Constitutional Constitutional ED: Denies chills, fever(s) or sweats Eyes Eyes: Denies blurry vision or change in vision ENT ENT ED: Denies ear pain or sore throat Cardiovascular Cardiovascular: Denies chest pain, palpitations or racing heartbeat Respiratory/Chest Respiratory/Chest: Denies cough, dyspnea or sputum Gastrointestinal Gastrointestinal: Denies abdominal pain, constipation, diarrhea, nausea or vomiting Genitourinary Genitourinary ED: Denies dysuria, hematuria or urinary frequency Musculoskeletal Musculoskeletal: Reports back pain; Denies arthralgias, myalgias or neck pain Integumentary Denies abscess, Abrasions or rash Neurologic Neurologic: Denies headache(s), paresthesias or weakness Psychiatric Psychiatric: Denies anxiety, depression, suicidal ideation or suicidal thoughts Endocrine Endocrinology: Denies polydipsia or polyuria EXAM Physical Exam Const Vital Signs: 09/17/23 07:43 Temperature 97.5 F L Temperature Source Temporal Pulse Rate 124 H Respiratory Rate 16 Blood Pressure 144/126 H Blood Pressure Mean 132 Pulse Ox 97 Oxygen Delivery Method Room Air Positive well nourished Eyes PERRL and EOMs intact bilaterally Resp normal respiratory effort Cardio regular rate Rate: tachycardic GI normal to inspection, nondistended, normoactive bowel sounds Back/Spine Back/Spine Narrative: Tenderness to palpation right lumbar paraspinal musculature. No midline spinal tenderness, deformity, step-off. Patient able to sit up from a lying position. Patient able to roll over to left lateral recumbent for examination. Lower extremity strength 5/5. Extremity normal to inspection Neuro oriented x3 and no sensory deficits noted Sensorium / Orientation: alert Motor Exam: strength 5/5 throughout Skin no rashes or lesions noted MDM MDM MDM Narrative Medical decision making narrative: Patient presenting with acute exacerbation of chronic back pain. He has not taken any of his home medications. Patient given Norflex and Toradol here. He is counseled he can take his methylprednisolone and his gabapentin here. He was given some food to eat prior to taking oral medications. I do not believe the patient needs any new imaging as he just recently had an MRI. Review of the medical record shows that orthopedics wanted to try to exhaust nonsurgical treatments. Also shows the patient not done any epidural injections and was sent to pain management. Patient himself stopped physical therapy on his own and was urged to reschedule this in the future. Impression: 1. Acute exacerbation of chronic back pain Discharge Plan Triage Chief Complaint: Back ED Provider: Jose Elias Valverde Dx/Rx/DC Orders Instructions: ED Back Pain (Acute or Chronic) Prescriptions: No Action pantoprazole [Protonix] 40 mg tablet,delayed release (DR/EC) 40 mg PO DAILY Qty: 90 0RF ibuprofen 200 mg capsule 200 mg PO Q6H PRN cyclobenzaprine [cyclobenzaprine] 10 mg tablet 10 mg PO QHS PRN PRN (Reason: Muscle Spasm) Qty: 10 0RF Primary Care Provider: Deena Borges Referrals: Deena Borges MD [Primary Care Provider] - Disposition Disposition: Home, Self Care Discharge Date/Time: 09/17/23 10:28
[2023-09-17] MEDS: Orphenadrine 60 MG/2 ML Ampul IM (09:46)
[2023-09-17] MEDS: Ketorolac 15 MG/ML Vial IM (09:46)
== END 2023-09-17 10:28 | disposition home or self-care (01) ==
PROVIDERS: Emergency Provider Student in an Organized Health Care Education/Training Program; PCP Internal Medicine; Visit Provider Student in an Organized Health Care Education/Training Program
DX: G89.29 Other chronic pain (principal); M54.9 Dorsalgia, unspecified; Z87.891 Personal history of nicotine dependence; K21.9 Gastro-esophageal reflux disease without esophagitis; Z79.899 Other long term (current) drug therapy; X58.XXXA Exposure to other specified factors, initial encounter; Y93.89 Activity, other specified
CPT/HCPCS: 96372; 99282

== ENCOUNTER 2023-09-19 11:23 | Emergency (ER) | payer MEDICAID, SELFPAY ==
[2023-09-19 11:24] VITALS: BP 130/89; PULSE 98; RESP 14; TEMP 36.3; O2SAT 100; BMI 26.6
--- NOTE | 2023-09-19 12:08 | EX.ED.DYSGE1 ---
HPI History of Present Illness Chief Complaint: General Illness Narrative Narrative: 43-year-old male presenting with concern for medication side effect. He states he feels jittery. Patient started Medrol Dosepak on Sunday and states he has not been on this medication before. He notes he woke up this morning feeling jittery. Otherwise he feels well. He is taking gabapentin and cyclobenzaprine as well. Patient wanted to discontinue using the steroids but he was not sure if he could. He tried to call his physician's office and was unable to get anybody on the phone so he came to the ER. [facility] Medical History Abdominal pain Bone fracture COVID-19 Frequent headaches Gastroesophageal reflux disease Gastrointestinal problem Histoplasmosis History of alcohol abuse History of back problems History of drug abuse Kidney infection Kidney stones Seasonal allergies Home Medications cyclobenzaprine 10 mg tablet 10 mg PO QHS PRN PRN Muscle Spasm #10 TABLETS 04/30/23 [Rx Last Taken Unknown] pantoprazole 40 mg tablet,delayed release (Protonix) 40 mg PO DAILY #90 tabs 06/28/23 [Rx Last Taken Unknown] ibuprofen 200 mg capsule 200 mg PO Q6H PRN 08/10/23 [History Last Taken Unknown] Allergy/AdvReac Type Severity Reaction Status Date / Time Seasonal Allergies: Uncoded Allergy Mild Other Verified 09/19/23 11:29 Family History Father Heart disease Alcoholism Anxiety Arthritis Cancer colon Hypertension Hyperlipidemia CVA (cerebral vascular accident) Thyroid disorder Mother Crohn disease A-fib Anemia Anxiety Arthritis Pulmonary emboli Depression Grandfather Cancer Grandmother Cancer Asthma Diabetes Myocardial infarction Hypertension Uncle Alcoholism Lung disease Sister Cancer cervical Depression Brother Seizures Surgical History H/O adenoidectomy H/O foot surgery H/O hand surgery History of mandibular surgery History of tonsillectomy Social History household members: significant other and children current occupational status: employed 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 Smoking Status: Former smoker quit date: 03/29/20 pack-years: 50 Tobacco: How many years used: 20 Electronic Cigarette Use: not used second hand exposure: Yes alcohol intake: former year quit: 2007 substance use type: former substance user Date of last use: used 'everything' around 2007 and marijuana seatbelt use: sometimes do you feel safe at home: Yes ROS ROS ED Constitutional Constitutional ED: Denies chills, fever(s) or sweats Eyes Eyes: Denies blurry vision or change in vision ENT ENT ED: Denies ear pain or sore throat Cardiovascular Cardiovascular: Denies chest pain, palpitations or racing heartbeat Respiratory/Chest Respiratory/Chest: Denies cough, dyspnea or sputum Gastrointestinal Gastrointestinal: Denies abdominal pain, constipation, diarrhea, nausea or vomiting Genitourinary Genitourinary ED: Denies dysuria, hematuria or urinary frequency Musculoskeletal Musculoskeletal: Denies arthralgias, myalgias or neck pain Integumentary Denies abscess, Abrasions or rash Neurologic Neurologic: Denies headache(s), paresthesias or weakness Psychiatric Psychiatric: Denies anxiety, depression, suicidal ideation or suicidal thoughts Endocrine Endocrinology: Denies polydipsia or polyuria EXAM Physical Exam Const Vital Signs: 09/19/23 11:24 09/19/23 12:02 Temperature 97.3 F L Temperature Source Temporal Pulse Rate 98 Respiratory Rate 14 Respiratory Effort Normal Respiratory Pattern Normal Blood Pressure 130/89 H Blood Pressure Mean 102 Pulse Ox 100 Oxygen Delivery Method Room Air Positive well nourished General Appearance ED: NAD HEENT Reports moist mucous membranes Eyes PERRL and EOMs intact bilaterally Neck no lymphadenopathy Chest Wall inspection of chest normal Resp normal respiratory effort Cardio regular rate Neuro oriented x3 and CN's II-XII intact bilaterally Sensorium / Orientation: alert Psych mental status grossly normal Skin no rashes or lesions noted MDM MDM MDM Narrative Medical decision making narrative: Presenting from [facility]. Most likely source is the Medrol Dosepak that he is on. He was counseled he can discontinue this safely. He can continue his cyclobenzaprine and gabapentin. Patient counseled he will likely feel better in a day or so. Patient states that his back pain is much better. Return precautions were discussed. Impression: 1. Medication side effect Discharge Plan Triage Chief Complaint: General Illness ED Provider: Jose Elias Valverde Dx/Rx/DC Orders Instructions: ED Drug Reaction, Other Prescriptions: No Action pantoprazole [Protonix] 40 mg tablet,delayed release (DR/EC) 40 mg PO DAILY Qty: 90 0RF ibuprofen 200 mg capsule 200 mg PO Q6H PRN cyclobenzaprine [cyclobenzaprine] 10 mg tablet 10 mg PO QHS PRN PRN (Reason: Muscle Spasm) Qty: 10 0RF Primary Care Provider: Deena Borges Referrals: Deena Borges MD [Primary Care Provider] - Disposition Disposition: Home, Self Care
== END 2023-09-19 12:11 | disposition home or self-care (01) ==
PROVIDERS: Emergency Provider Student in an Organized Health Care Education/Training Program; PCP Internal Medicine; Visit Provider Student in an Organized Health Care Education/Training Program
DX: T38.0X5A Adverse effect of glucocorticoids and synthetic analogues, initial encounter (principal); Z87.891 Personal history of nicotine dependence; K21.9 Gastro-esophageal reflux disease without esophagitis; Z79.899 Other long term (current) drug therapy
CPT/HCPCS: 99282